=== PATIENT | female | born 1950 | race Two or more races ===

== ENCOUNTER 2024-09-24 10:04 | Outpatient (REF) | payer OTHER, SELFPAY ==
--- OUTSIDE RECORDS SUMMARY | 2024-09-24 10:43 | XMS_ITS | Encounter Summary ---
Author Organization [employer] Address [address] [facility] [address] [place] [address] Care Team Providers Care Psychology Physician Name Role Phone Carl Rivera MD Primary Care Prov ider Reason for Visit * Reason Onset Date Comments Chart Prep 09/04/2024 Encounter Details Date Type Department Care Team ([facility] st Contact Info) Description 09/04/2024 Telephone [facility] [address] [place], [place] [phone] Carl Rivera MD [address] [place], [place] [phone] Chart Prep Social History Tobacco Use Types Packs/Day Years Used Date Smoking Tobacco: Never Assessed Housing Stability Answer Date Recorded What is your housing situation today? I have carlos a espinoza 06/28/[address] you li ve. Do you have problems with any of the following? None of the above 06/28/2024 Food Insecurity Answer Date Recorded Within the past 12 months, y ou worried that your food would run out before you got money to buy more: Never True 06/28/2024 Within the past 12 months,th e food you bought just didn't last and you didn't have enough money to get more: Never True 02/2024 Transportation Answer Date Recorded In the past 12 months, has l ack of transportation kept you from medical appts, meetings, work or from getting things needed for daily living? No 06/28/2024 Utilities Answer Date Recorded In the past 12 months, has t he electric, gas, oil or water company threatened to shut off services in your home? No 06/28/2024 Internet Access Answer Date Recorded Internet Access Q1 Yes 06/28/2024 Internet Access Q2 Not on file 06/28/2024 Comments Unknown Sex and Gender Information Value Date Recorded Sex Assigned at Female 06/05/2024 10:23 AM EDT Legal Sex Female 9:49 AM EDT Gender Identity Female 06/05/2024 10:23 AM EDT Sexual Orientation Straight 06/05/2024 10 :47 AM EDT documented as of this encounter Miscellaneous Notes * Telephone Encounter - Rachel March MA - 09/04/2024 8:06 PM EST Chart Prep Labs: not applicable Images: done Vaccines due: yes Referrals: complete Screenings: eye exam Overdue care gaps: Glucose, Sbirt documented in this encounter Plan of Treatment Upcoming Encounters Date Type Department Care Team (Late st Contact Info) Description 10/04/2024 2:30 PM EST Office Visit [facility] [address] [place] [address] Carl Rivera MD [address] [place] [address] documented as of this encounter Visit Diagnoses Not on filedocumented in this encounter Care Teams Psychology Physician Relationship Specialty Start Date End Date Carl Rivera MD [address] [place] [address] PCP - General Internal Medicine 06/06/24 documented as of this encounter
--- OUTSIDE RECORDS SUMMARY | 2024-09-24 10:43 | XMS_ITS | Encounter Summary ---
Author Organization [employer] Address [address] [facility] [address] [place] [address] Care Team Providers Care Toy Department Manager Name Role Phone Carl Rivera MD Primary Care Prov ider Reason for Visit * Reason Onset Date Comments Nurse Triage 08/27/2024 Encounter Details Date Type Department Care Team ([facility] st Contact Info) Description 08/27/2024 Telephone [facility] [address] [place], [place] [phone] Carl Rivera MD [address] [place], [place] [phone] Nurse Triage Social History Tobacco Use Types Packs/Day Years [...] encounter Miscellaneous Notes * Telephone Encounter - Rosie Wan RN - 08/27/2024 11:54 AM EST Called pt. Nephew via [facility] vocational horticulture instructor [phone] Amy. Pt. Nephew states that pt. Is not sleeping at night and when she tries to get up at night she is completely unsteady. Pt. Nephew is looking for something to help pt. Sleep at night. Pt does not have Dementia but she is up all night and not listening to go back to bed and nephew is concerned for her safety. I advised that I think it would be best to do an in office visit to evaluate her mental status and mobility due to her not having any Dx of dementia. Protocol Used: Insomnia (Adult) Protocol-Based Disposition: See in Office or Video Visit within 3 Days- in office appt. Scheduled for 08/30/24 at 330pm.in [facility] Video visit offer not recorded Positive Triage Questions: * Moderate - Severe insomnia (e.g., interferes with work or school) * Requesting prescription medicine for sleep ( sleeping pill ) * All higher-acuity triage questions were negative Care Advice Discussed: * Reassurance and Education - Difficulty Sleeping * Tips for Good Sleep - What To Avoid * Telephone Encounter - Digna Pereira - 08/27/2024 9:52 AM EST Symptom: Sleeping Difficulty Outcome: Schedule an appointment to be seen within 24 hours Reason: This is the only possible outcome for this symptom The caller accepted this outcome. documented in this encounter Plan of Treatment Upcoming Encounters Date Type Department Care Team (Late st Contact Info) Description 10/04/2024 2:30 PM EST Office Visit [facility] [address] [place] [address] Carl Rivera MD [address] [place] [address] documented as of this encounter Visit Diagnoses Not on filedocumented in this encounter Care Teams Toy Department Manager Relationship Specialty Start Date End Date Carl Rivera MD [address] [place] [address] PCP - General Internal Medicine 06/06/24 documented as of this encounter
--- OUTSIDE RECORDS SUMMARY | 2024-09-24 10:43 | XMS_ITS | Clinical Summary ---
Author Organization [employer] Address [address] [facility] [address] [place] [address] Care Team Providers Care Center Customer Service Associate Name Role Phone Carl Rivera MD Primary Care Prov ider Allergies No known active allergies Medications * This document contains information received from the source organization and may not represent a complete record from that organization. alendronate (Fosamax) 70 MG tablet Take 1 tablet (70 mg) by mouth every 7 (seven) days. Take in the morning with a full glass of water, on an empty stomach, and do not take anything else by mouth or lie down for the next 30 min. 12 tablet 3 4 06/06/20 25 Active aspirin 81 MG EC tablet Take 1 tablet (81 mg) by mouth Once per day. 30 tablet 11 4 06/06/20 25 Active atorvastatin (Lipitor) 20 MG tablet Take 1 tablet (20 mg) by mouth Once per day. 30 tablet 11 4 06/06/20 25 Active Calcium Carb-Cholecalci ferol (Caltrate 600+D3) 600-20 MG-MCG tablet Take 1 tablet by mouth Once per day. 90 tablet 3 4 06/06/20 25 Active famotidine (Pepcid) 20 MG tablet Take 1 tablet (20 mg) by mouth 2 times daily. 180 tablet 3 4 06/06/20 25 Active ferrous sulfate 325 (65 Fe) MG EC tablet Take 1 tablet (325 mg) by mouth with breakfast. Do not crush, chew, or split. 90 tablet 3 4 06/06/20 25 Active latanoprost (Xalatan) 0.005 % ophthalmic solution Administer 1 drop into both eyes at bedtime. 7.5 mL 3 4 Active linaGLIPtin-met FORMIN ER (Jentadueto XR) 5-1000 MG per 24 hr tablet Take 1 tablet by mouth with breakfast. 30 tablet 11 4 06/06/20 25 Active propranolol (Inderal) 20 MG tablet Take 1 tablet (20 mg) by mouth 2 times daily. 180 tablet 3 4 06/06/20 25 Active lisinopril 40 MG tablet Take 1 tablet (40 mg) by mouth Once per day. 90 tablet 3 4 08/08/20 25 Active glucose blood test stripIndication s:Type 2 diabetes mellitus without complication, without long-term current use of insulin ([facility]) 1 each by Other route 3 times daily. 100 each 11 4 08/17/20 25 Active Alcohol Sheets (Alcoh-Wipe) sheet Test daily before all meals/snacks and once before bedtime. 1 each 4 Active Blood Glucose Monitoring Suppl (ONE TOUCH ULTRA MINI) w/Device kit Test daily before all meals/snacks and once before bedtime. 1 kit 4 Active Lancets misc 1 each 3 times daily. 1 each 11 4 08/17/20 25 Active mirtazapine (Remeron) 7.5 MG tabletIndicatio ns:Primary insomnia,Diffic ulty coping with disease Take 1 tablet (7.5 mg) by mouth at bedtime. 30 tablet 5 10/06/19 25 Active traMADol (Ultram) 50 MG tabletIndicatio ns:Left foot pain Take 1 tablet (50 mg) by mouth every 12 (twelve) hours if needed for severe pain for up to 14 days. 28 tablet 5 09/21/19 25 Active Problems Problem Noted Date Diagnosed Date Left foot pain 08/03/2024 Assessment & Plan (08/08/2024 9:24 AM EST): Chronic pain, family members refer skin color changes, will refer to vascular surgery for evaluation Assessment & Plan (08/03/2024 4:32 PM EST): Short course of tramadol prescribed (patient already tried ibuprofen and acetaminophen) Do not miss appointment with podiatry Callus of foot 08/03/2024 Diabetes due to underlying condition w oth circu latory comp 07/05/2024 Assessment & Plan (08/08/2024 9:24 AM EST): Continue jentadueto, keep low carb/no sugar diet, no reported episode below 70, Gait abnormality 07/05/2024 Assessment & Plan (07/05/2024 3:03 PM EST): Patient with advanced arthritidis, she has difficulty standing and walking, needs a walker to aid in her adls, she will need a floor cover for the bathroom to avoid slipping and falling, also she will need bath tub tubes and raised toilet seat Encounter for medical examination to establish c are 06/06/2024 Assessment & Plan (06/06/2024 1:13 PM EDT): Seen 2 months ago by a pcp No hx of hospitalization Visited er about 6 months ago due to covid Pmhx Htn/DM/hyperlipidemia/osteoporosis/anemia Pshx:cataract 2019 All:- Med: list updated Menarche 14yrs old LMP 44yrs Denied hx of Screening for colon cancer 06/06/2024 Assessment & Plan (06/06/2024 1:14 PM EDT): Will send cologuard Encounter for screening mamm ogram for malignant neoplasm of breast 06/06/2024 Assessment & Plan (06/06/2024 1:15 PM EDT): Will refer for screening breast cancer Age-related osteoporosis wit hout current pathological fracture 06/06/2024 Assessment & Plan (06/06/2024 1:20 PM EDT): Will order a dexa scan Type 2 diabetes mellitus wit hout complication, without long-term current use of insulin 06/06/2024 Assessment & Plan (07/05/2024 2:59 PM EST): Conrtolled, will discontinue metformin continue with jentadueto, keep low carb/no sugar diet, follow up in 3 months Pending eye exam New labs ordered Assessment & Plan (06/06/2024 1:24 PM EDT): Will consider simplifyning and optimizing therapy on next visit Primary hypertension 06/06/2024 Assessment & Plan (08/08/2024 9:23 AM EST): Will increase lisinopril to 40mg, continue low sodium diet and exercise as tolerated, keep bp log, follow up in 3 months Assessment & Plan (07/05/2024 3:00 PM EST): Not at target, will increase lisinopril and will discontinue amlodipine for simplicity of therapy, will reevaluate in 1 month Assessment & Plan (06/06/2024 1:23 PM EDT): Patient is on multiple medication at a low dose, will consider optomizing therapy and decreasing duplicity of treatment, told to keep a bp log for next visit Bunion of left foot 06/06/2024 Assessment & Plan (06/06/2024 1:25 PM EDT): Xray will be ordered and will be referred to podiatry Encounters * This document contains information received from the source organization and may not represent a complete record from that organization. Date Type Department Care Team Description 09/20/2024 Telephone [facility] [address] [place] [address] Carl Rivera MD Referral 09/20/2024 Telephone [facility] [address] [place] [address] Carl Rivera MD Nurse Triage 09/07/2024 Orders Only [facility] [address] [place] [address] Carl Rivera MD Left foot pain (Primary Dx) 09/07/2024 Telephone [facility] [address] [place], [place] [phone] Carl Rivera MD Med Refill 09/06/2024 11:15 AM EST Office Visit [facility] [address] [place] [address] Kvng Guerrero MD Pain of toe of left foot (Primary Dx); Primary insomnia; Difficulty coping with disease 09/06/2024 Travel 09/04/2024 Telephone [facility] [address] [place] [address] Carl Rivera MD Chart Prep 08/27/2024 Telephone [facility] [address] [place] [address] Carl Rivera MD Nurse Triage 08/17/[address] [address] Carl Rivera MD callback requested 08/17/[address] [address] Carl Rivera MD Left foot pain; Callus of foot 08/08/2024 8:30 AM EST Telemedicine [facility] [address] [place] [address] Carl Rivera MD Left foot pain (Primary Dx); Primary hypertension; Diabetes due to underlying condition w oth circulatory comp ([facility]) 08/08/[address] [address] Carl Rivera MD c/b requested 08/08/2024 Travel 08/07/2024 Telephone [facility] [address] [place] [address] Carl Rivera MD chart prep 08/06/2024 Telephone [facility] [address] [place] [address] Carl Rivera MD callback requested 08/06/2024 Travel 08/03/2024 2:00 PM EST Office Visit [facility] [address] [address] Tiffanie Gilliam MD Left foot pain (Primary Dx); Callus of foot 08/03/2024 Telephone [facility] [address] [place], [place] [phone] Carl Rivera MD Nurse Triage 07/06/2024 Travel 07/05/2024 1:00 PM EST Office Visit [facility] [address] [place], [place] [phone] Carl Rivera MD Type 2 diabetes mellitus without complication, without long-term current use of insulin ([facility]) (Primary Dx); Diabetes due to underlying condition w oth circulatory comp ([facility]); Primary hypertension; Gait abnormality 07/05/2024 Travel 06/28/2024 Patient Outreach [facility] [address] [place], [place] [phone] Carl Rivera MD Pre-visit Planning (SDOH screening negative and Tobacco screening negative. /) from Last 3 Months Social History Tobacco Use Types Packs/Day Years Used Date Smoking Tobacco: Unknown Tobacco Cessation:Counseling Given: No Depression Answer Date Recorded Patient Health Questionnaire-9 Score 6 09/06/2024 Patient Health Questionnaire-9 Score 6 09/06/2024 Last PHQ-9: Questionnaire Data Not on file 0 09/06/2024 Housing Stability Answer Date Recorded What is [...] off services in your home? No 06/28/2024 Depression Answer Date Recorded Patient Health Questionnaire-2 Score 0 09/06/2024 Internet Access Answer Date Recorded Internet Access Q1 Yes 06/28/2024 Internet Access Q2 Not on file 06/28/2024 Comments Unknown Sex and Gender Information Value Date Recorded Sex Assigned at Female 06/05/2024 10:23 AM EDT Legal Sex Female 9:49 AM EDT Gender Identity Female 06/05/2024 10:23 AM EDT Sexual Orientation Straight 06/05/2024 10 :47 AM EDT Last Filed Vital Signs Vital Sign Reading Time Taken Comments Blood Pressure 185/72 09/06/2024 11:12 AM EST Pulse 72 09/06/2024 11:12 AM EST Temperature 36.7 ??C (98 ??F) 09/06/2024 11: 12 AM EST Respiratory Rate 19 09/06/2024 11:1 2 AM EST Oxygen Saturation 100% 09/06/2024 11: 12 AM EST Inhaled Oxygen Concentration - - Weight 51.3 kg (113 lb) 09/06/2024 11:1 2 AM EST with wheel chair Height - - Body Mass Index - - Plan of Treatment Upcoming Encounters Date Type Department Care Team (Late st Contact Info) Description 10/04/2024 2:30 PM EST Office Visit [facility] [address] [place] [address] Carl Rivera MD [address] [place] [address] Health Maintenance Due Date Last Done Comments CT Colonography 1952 Colonoscopy 1952 Colorectal Cancer Screening 1952 FIT DNA/Cologuard 1952 FIT 1952 FOBT 1952 Lipid Panel 1952 Sigmoidoscopy 1952 Alcohol/Substance Use Screening 1964 Hepatitis C Screening 1970 DTaP/Tdap/Td Vaccines (1 - Tdap) 1971 Diabetes: Urine Protein Screening 1971 Pneumococcal Vaccine: 50+ Years (1 of 2 - PCV) 1971 Mammogram 1992 Zoster Vaccines (1 of 2) 2002 COVID-19 Vaccine (1 - season) 2024 Influenza Vaccine (#1) 2024 Diabetes: Hemoglobin A1C 01/02/2025 07/05/2024 SDOH Screening 06/28/2025 06/28/2024 Diabetes: Foot Exam 07/05/2025 07/05/2024, 07/05/2024, 07/05/2024, Additional history exists Depression Screening 09/06/2025 09/06/2024, 09/06/19 Tobacco Screening 09/06/2025 09/06/2024 Eye Exam 06/19/2026 06/19/2024 RSV Patients and Patients Aged 60 years or older (1 - 1-dose 75+ series) 2027 HIB Vaccines Aged Out No longer eligi ble based on patient's age to complete this topic HPV Vaccines Aged Out No longer eligi ble based on patient's age to complete this topic Hepatitis A Vaccines Aged Out No long er eligible based on patient's age to complete this topic Hepatitis B Vaccines Aged Out No long er eligible based on patient's age to complete this topic IPV Vaccines Aged Out No longer eligi ble based on patient's age to complete this topic Meningococcal Vaccine Aged Out No mike mickey eligible based on patient's age to complete this topic RSV under 20 months Aged Out No longe r eligible based on patient's age to complete this topic Rotavirus Vaccines Aged Out No longer eligible based on patient's age to complete this topic Procedures Procedure Name Priority Date/Time Associated Diagnosis Comments POCT GLYCATED HEMOGLOBIN, TOTAL Routine 07/05/2024 1:35 PM EST Type 2 diabetes mellitus without complication, without long-term current use of insulin ([facility]) POCT GLUCOSE Routine 07/05/2024 1:34 PM EST Type 2 diabetes mellitus without complication, without long-term current use of insulin (CMS/HCC) AMB REFERRAL TO OPTOMETRY Routine 06/19/2024 Type 2 diabetes mellitus without complication, without long-term current use of insulin (CMS/HCC) from Last 3 Months or Most Recently Relevant to Health Maintenance Results * POCT HGB A1C (07/05/2024 1:35 PM EST) Hemoglobin A1C 5.7 4.0 - 6.0 % QC Media Lot # [id number] Lot# Expiration Date 8,026 Blood 07/05/2024 1:35 PM EST Carl Crisostomo MD POINT OF CARE TEST ENTER/EDIT ORDERABLES Final Result * POCT Glucose (07/05/2024 1:34 PM EST) [facility] Signature Glucose Blood, POC 123 60 - 200 mg/dL QC Media Lot # [id number] Lot# Expiration Date 408,[id number] Blood Capillary blood specimen / Unknown 07/05/2024 1:34 PM EST Carl Crisostomo MD POINT OF CARE TEST ENTER/EDIT ORDERABLES Final Result * Referral to Optometry (06/19/2024) Carl Crisostomo MD OUTPATIENT REFERRA L ORDERABLES Final Result from Last 3 Months or Most Recently Relevant to Health Maintenance Insurance [facility] Care Teams Center Customer Service Associate Relationship Specialty Start Date End Date Carl Rivera MD [address] [place] [address] PCP - General Internal Medicine 06/06/24
--- OUTSIDE RECORDS SUMMARY | 2024-09-24 10:43 | XMS_ITS | Clinical Summary ---
Author Organization [address] [facility] Address [address] [place] [address] Phone Care Team Providers Care Registered Respiratory Technician Name Role Phone Carl Rivera Primary Care Provide r Medications Medication Sig Dispensed Refills Start Date End Date Status ammonium lactate (AmLactin) 12 % lotion Apply topically if needed for dry skin. 400 g 2 09/20/2024 09/20/2025 Active Encounters Date Type Department Care Team Description 09/20/2024 1:00 PM EST Office Visit Orthopedic Surgery [place] [phone] [phone] Ron Mahmood DPM Controlled type 2 diabetes with neuropathy (CMS/HCC) (Primary Dx); Pain in toes of both feet; Xerosis cutis; Callus; Dermatophytosis, nail from Last 3 Months Social History Tobacco Use Types Packs/Day Years Used Date Smoking Tobacco: Never Assessed Sex and Gender Information Value Date Recorded Sex Assigned at Not on file Gender Identity Not on file Sexual Orientation Not on file Plan of Treatment Upcoming Encounters Date Type Department Care Team (Late st Contact Info) Description 11/22/2024 1:15 PM EDT Office Visit Orthopedic [facility] [address] [phone] Ron Mahmood DPM [address] [address] Health Maintenance Due Date Last Done Comments Breast Cancer Screening 1952 Diabetes: Annual GFR (Glomer ular Filtration Rate) 1952 Pneumococcal Vaccine: 65+ Ye ars (1 of 2 - PCV) 1958 Diabetes: Annual Foot Exam 1962 Diabetes: Annual Retina Eye Exam 1962 DTaP,Tdap,and Td Vaccines (1 - Tdap) 1971 Zoster Vaccines (1 of 2) 2002 RSV Immunization Patients 60 + Years Old (1 - Risk 60-74 years 1-dose series) 2012 COVID-19 Vaccine (1 - 2023-2 5 season) 2024 Influenza Vaccine (#1) 2024 Cholesterol Screening (Lipid Panel) 06/17/2024 Colorectal Cancer Screening: Colonoscopy 06/17/2024 Falls Risk Assessment 06/17/2024 Hepatitis C Screening 06/17/2024 Osteoporosis Screening (Bone Density Screening) 06/17/2024 Social Influencers of Health Screening 06/17/2024 Diabetes: Annual Urine Albumin-Creatinine Ratio (uACR) 09/20/2024 Hypertension/CHF/CAD Annual BMP Blood Test 09/20/2024 Diabetes: Blood Sugar Contro l Test (HGBA1C) 01/02/2025 07/05/2024 Depression Screening 09/06/2025 09/06/2024 HIB Vaccines Aged Out No longer eligi [...] on patient's age to complete this topic MMR Vaccines Aged Out No longer eligi ble based on patient's age to complete this topic Meningococcal ACWY Vaccine Aged Out N o longer eligible based on patient's age to complete this topic RSV Immunization Patients Un lexus 20 months Aged Out No longer eligible b ased on patient's age to complete this topic Varicella Vaccines Aged Out No longer eligible based on patient's age to complete this topic Care Teams Registered Respiratory Technician Relationship Specialty Start Date End Date Carl Rivera [address] [place], [place] PCP - General 06/08/24
--- OUTSIDE RECORDS SUMMARY | 2024-09-24 10:43 | XMS_ITS | Encounter Summary ---
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 * Orthopedic (Routine) - Authorized Specialty Diagnoses / Procedures Referred By Yunior newberry Referred To Contact Podiatry / Orthopaedic Surgery Diagnoses Bunion of left foot Procedures AMB REFERRAL TO PODIATRY Carl Rivera [address] [place], [place] Ron Mahmood DPM [address] [address] Referral ID Status Reason Start Date Expiration Date Visits Requested Visits Authorized [id number] Authorized Consult and Treat 06/23/2024 06/23/2025 1 1 Encounter Details Date Type Department Care Team (Late st Contact Info) Description 09/20/2024 1:00 PM EST Office Visit Orthopedic Surgery - [place] [address] [phone] Ron Mahmood DPM [address] [address] Controlled type 2 diabetes with neuropathy (CMS/HCC) (Primary Dx); Pain in toes of both feet; Xerosis cutis; Callus; Dermatophytosis, nail Social History Tobacco Use Types Packs/Day Years Used Date Smoking Tobacco: Never Assessed Sex and Gender Information Value Date Recorded Sex Assigned at Not on file Gender Identity Not on file Sexual Orientation Not on file documented as of this encounter Ordered Prescriptions Prescription Sig Dispensed Refills Start Date End Da te ammonium lactate (AmLactin) 12 % lotion Apply topically if needed for dry skin. 400 g 2 09/20/2024 09/20/2025 documented in this encounter Progress Notes * Ron Mahmood DPM - 09/20/2024 1:00 PM EST Referring MD: Connor Rivera* Last PCP visit: 09/06/2024 IDENTIFIER: @TITLE@ Leopoldo Maldonado is a 74 y.o. year old female who presents for consultation. CC: Bilateral foot pain HPI: Patient presents to office today for initial diabetic foot evaluation as recommended by their primary care physician. Patient states that they have been diabetic for the past few years and has tingling numbness of feet bilaterally Denies any history of ulceration, or infection. Patient would like to inquire about their pedal hygiene, as their toenails have become elongated and painful. Patient is not using antifungals at this time. Patient is wearing good supportive shoes at this time. She is concerned with a callus overlying the IP joint of the left fifth digit Patient with minimal other pedal complaints at this time. Patient's FBS this AM was 120 Recent A1C is %. 6.3 ROS: GENERAL: Pt denies nausea, fever, vomiting, chills, or shortness of breath. Pt in NAD. CARDIOLOGY: pt denies chest pain, palpitations LUNGS: pt denies shortness of breath MUSCULOSKELETAL: See HPI, otherwise no joint pain or swelling, back pain, or muscle pain. SKIN: see HPI, otherwise no lesions, rash or itching NEURO: No persistent headache, weakness or numbness The remainder of the review of systems is noncontributory PAST MEDICAL HISTORY: There is no problem list on file for this patient. SOCIAL HISTORY: Social History Tobacco Use Smoking status: Not on file Smokeless tobacco: Not on file Substance Use Topics Alcohol use: Not on file ACTIVE MEDICATIONS: No outpatient medications have been marked as taking for the 09/20/24 encounter (Office Visit) with Ron Mahmood DPM. ALLERGIES: @ALL@ PHYSICAL EXAM: There were no vitals taken for this visit. PODIATRIC EXAMINATION: GENERAL: Patient appears well nourished, with NAD. VASCULAR: Dorsalis pedis pulses are 1/4 bilaterally and Posterior tibial pulses are 0/4 bilaterally. Capillary filling time within normal limits the digits. No pallor on elevation or rubor on dependency. Positive hair growth. No varicosities. Denies rest pain or claudication pain. NEUROLOGICAL: Sharp/dull sensation intact, protective sensation diminished on Arnold. Peripheral neuropathies at the feet bilaterally ORTHOPEDIC: Good muscle strength 5/5 of all flexors and extensors. Dorsi flexion of ankle ,10 degrees, plantar flexion WNL. No muscle atrophy. Arthritic changes to the feet bilaterally. Difficulty ingoing through with dorsi flexion of the left foot. Passive range of motion adequate. Contracture ofdigits 2 through 5 which are rigid. Palpation of the distal orlando of the digits DERMATOLOGICAL:.Enlarged callus over the IP joint of the left fifth digit masses or skin lesions noted. Normal skin temperature, normal skin turgor. Nails are elongated dystrophic discolored x 10 with subungual debris BIOMECHANICS: STJ ROM wnl, MTJ ROM wnl, 1st MPJ ROM wnl. IMPRESSION: 1. Controlled type 2 diabetes with neuropathy (CMS/HCC) 2. Pain in toes of both feet 3. Xerosis cutis 4. Callus 5. Dermatophytosis, nail PLAN: Pt was seen and examined, history reviewed. Patient educated on the importance of good pedal hygiene and tight blood glucose control. Patient encouraged to maintain a healthy lifestyle with a well-balanced diet. Patient should never go barefoot and wear supportive shoe gear. Patient should aim for A1c less than 7% every month. Continue with regular appointments with PMD or fisher trawl line for tight medical management Patient found to have contracted and hammered digits of bilateral forefoot. Due to patients currentage and activity level, will continue with conservative management of these deformities. There are devices that will help reduce chance of irritation, pressure points, blisters, and/or infection. Hyperkeratotic lesions were debrided without incident. Patient reported significant relief. Patientwould benefit from padding to prevent future injury or ulceration. Offloading pads offered to patient to place in patient shoe gear. Will discuss Dr Sandoval's products or custom orthotics at next appointment if improvement noted Nail debridement performed to nails 1-5 bilateral as nails were described to be causing pain and difficulty for walking while in shoegear at their previous length. They were debrided in thickness andlength, with no incident. 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 Patient expressed immediate relief. Patient is to RTC in 9 weeks Patient with diffuse Xerosis to bilateral feet. Patient will benefit from additional moisture to feet to prevent fissures and crack which could lead to pain or even infection. Patient was given a prescription for ammonium lactate 12% to be applied daily. Patient encouraged to apply lotion to lightly moistened skin to allow for better absorption. Ron Mahmood DPM cc: Connor Rivera* documented in this encounter Plan of Treatment Upcoming Encounters Date Type Department Care Team (Late st Contact Info) Description 11/22/2024 1:15 PM EDT Office Visit Orthopedic Surgery - [place] [address] [phone] Ron Mahmood DPM [address] [address] documented as of this encounter Visit Diagnoses Diagnosis Controlled type 2 diabetes with neuropathy (CMS/HCC)- Primary Type II or unspecified type diabetes mellitus with neurological manifestations, not stated as uncontrolled Pain in toes of both feet Xerosis cutis Other specified disease of sebaceous glands Callus Corns and callosities Dermatophytosis, nail Dermatophytosis of nail documented in this encounter Care Teams Processing Tech Relationship Specialty Start Date End Date Carl Rivera [address] [place] [address] PCP - General 06/08/24 documented as of this encounter
--- OUTSIDE RECORDS SUMMARY | 2024-09-24 10:43 | XMS_ITS | Encounter Summary ---
Author Organization [employer] Address [address] [facility] 7t [place] [address] Care Team Providers Care Health And Wellness Coordinator Name Role Phone Carl Rivera MD Primary Care Prov ider Reason for Visit * Reason Onset Date Comments Med Refill 09/07/2024 Encounter Details Date Type Department Care Team (Late st Contact Info) Description 09/07/2024 Telephone [facility] [address] [place] [address] Carl Rivera MD [address] [place], [place] [phone] Med Refill Social History Tobacco Use Types Packs/Day Years Used Date Smoking Tobacco: Unknown Depression Answer Date Recorded Patient Health Questionnaire-9 Score 6 09/06/2024 Patient Health Questionnaire-9 Score 6 09/06/2024 Last PHQ-9: Questionnaire Data Not on file 0 09/06/2024 Housing Stability Answer Date Recorded What is your housing situation today? I have carlos ajailyn espinoza 06/28/[address] you [...] encounter Miscellaneous Notes * Telephone Encounter - Rudy Cohen - 09/07/2024 10:45 AM EST TC from [place] checking to see if pcp can prescribe Tramadol 50 mg ( limited supply ) until pt sees pc support specialist 09/20 documented in this encounter Plan of Treatment Upcoming Encounters Date Type Department Care Team (Late st Contact Info) Description 10/04/2024 2:30 PM EST Office Visit [facility] MED & PEDS [address] [place] [address] Carl Rivera MD [address] [place] [address] documented as of this encounter Visit Diagnoses Not on filedocumented in this encounter Additional Health Concerns Assessment Noted Time PHQ-9 Depression Total Score: 6 09/06/19 25 12:03 PM EST documented as of this encounter Care Teams Health And Wellness Coordinator Relationship Specialty Start Date End Date Carl Rivera MD [address] [place] [address] PCP - General Internal Medicine 06/06/24 documented as of this encounter
--- OUTSIDE RECORDS SUMMARY | 2024-09-24 10:43 | XMS_ITS | Encounter Summary ---
Author Organization [employer] Address [address] [facility] [address] [place] [address] Care Team Providers Care Requirements Analyst Name Role Phone Carl Rivera MD Primary Care Prov ider Reason for Visit * Reason Onset Date Comments Nurse Triage 08/03/2024 Encounter Details Date Type Department Care Team ([facility] st Contact Info) Description 08/03/2024 Telephone [facility] [address] [place] [address] Carl Rivera MD [address] [place], [place] [phone] Nurse Triage Social History Tobacco Use Types [...] Telephone Encounter - Rosie Wan RN - 08/03/2024 9:29 AM EST Called pt via [facility] route salesman [phone] [place] [place] , pt. Nephew answered phone. Pt. Feet are hurtingand her toes are turning black according to nephew and pt. Cries everyday according to pt. Nephew. This has been going on x 2 weeks. No drainage from toes. Pt. Is Diabetic and does have underlying circulatory issues and complications noted in chart. Pt. Nephew states that he took pt. [facility] x 1 week ago and they just took some tests and then sent pt. Home. I see a note from [facility] from 06/17/24 but, no recent ED note. I stated that I am very concerned and that he should take pt. Back to ED. Pt.Nephew declines stating that they did nothing. I advised pt. Nephew to bring pt. To walk in to be assessed right away. Pt. nephew agrees with plan. Protocol Used: Toe Pain (Adult) Protocol-Based Disposition: Go to ED/[facility] Now (or to Office with PCP Approval) Video visit offer not recorded Positive Triage Questions: * Purple or black skin on toe (Exception: Person remembers bruising the toe from an injury.) * Severe pain (e.g., excruciating, unable to do any normal activities) and not improved after 2 hours of pain medicine * All higher-acuity triage questions were negative * Telephone Encounter - Kunal March - 08/03/2024 9:14 AM EST Symptom: Leg Pain - Not From Injury Outcome: Talk to a nurse or provider within 15 minutes Reason: Can't walk (unless normally can't walk) Italian Speaker (Accepted Healthcare Facility Administrator) documented in this encounter Plan of Treatment Upcoming Encounters Date Type Department Care Team (Late st Contact Info) Description 10/04/2024 2:30 PM EST Office Visit [facility] MED & PEDS [address] [place] [address] Carl Rivera MD [address] [place] [address] documented as of this encounter Visit Diagnoses Not on filedocumented in this encounter Care Teams Requirements Analyst Relationship Specialty Start Date End Date Carl Rivera MD [address] [place] [address] PCP - General Internal Medicine 06/06/24 documented as of this encounter
--- OUTSIDE RECORDS SUMMARY | 2024-09-24 10:43 | XMS_ITS | Encounter Summary ---
Author Organization [employer] Address [address] [facility] 7t [place] [address] Care Team Providers Care Lead Data Entry Operator Name Role Phone Carl Rivera MD Primary Care Prov ider Reason for Visit * Reason Onset Date Comments Nurse Triage 09/20/2024 Encounter Details Date Type Department Care Team ([facility] st Contact Info) Description 09/20/2024 Telephone [facility] MED [facility] PEDS [address] [place], [place] [phone] Carl Rivera MD [address] [place], [place] [phone] Nurse Triage Social History Tobacco Use Types [...] encounter Miscellaneous Notes * Telephone Encounter - Celena José LPN - 09/20/2024 2:27 PM EST Triage call returned with S #[id number] Bruce Patient with noted increased confusion over the last several weeks. Patient living with Nephew and his Hillary. Hillary does not feel that PRN Tramadol or sleep aid is affecting mentation and that patient just at times appears confused. Had difficulty lifting legs into car as if she didn't understand given as example. No evidence of illness at present. Has no fever no urinary complaints. Is sleeping well at night. Appetite at baseline. Disposition reviewed and patient family in agreement with plan. [facility] Instead home valuation arranged for today Address and phone verified at time of call. Patient family made aware of outstanding labs on file and will obtain at time of [facility] appt 09/24/24 Protocol Used: Confusion - Delirium (Adult) Protocol-Based Disposition: See in Office or Video Visit Today Positive Triage Question: * Patient wants to be seen (or caregiver requests) * All higher-acuity triage questions were negative * Telephone Encounter - Digna Pereira - 09/20/2024 2:01 PM EST Symptom: Confusion Outcome: Schedule a same-day appointment or talk to a nurse or provider today Reason: Caller denied all higher acuity questions The caller accepted this outcome. documented in this encounter Plan of Treatment Upcoming Encounters Date Type Department Care Team (Late st Contact Info) Description 10/04/2024 2:30 PM EST Office Visit [facility] CH[facility] MED & PEDS [address] [place] [address] Carl Rivera MD [address] [place] [address] documented as of this encounter Visit Diagnoses Not on filedocumented in this encounter Additional Health Concerns Assessment Noted Time PHQ-9 Depression Total Score: 6 09/06/19 25 12:03 PM EST documented as of this encounter Care Teams Lead Data Entry Operator Relationship Specialty Start Date End Date Carl Rivera MD [address] [place] [address] PCP - General Internal Medicine 06/06/24 documented as of this encounter
--- OUTSIDE RECORDS SUMMARY | 2024-09-24 10:43 | XMS_ITS | Encounter Summary ---
Author Organization [employer] Address [address] [facility] [address] [place] [address] Care Team Providers Care Water Quality Specialist Name Role Phone Carl Rivera MD Primary Care Prov ider Encounter Details Date Type Department Care Team (Late st Contact Info) Description 09/07/2024 Orders Only [facility] CH[facility] MED & PEDS [address] [place], [place] [phone] Carl Rivera MD [address] [place], [place] [phone] Left foot pain (Primary Dx) Social History Tobacco Use Types Packs/Day Years [...] AM EDT documented as of this encounter Plan of Treatment Upcoming Encounters Date Type Department Care Team (Late st Contact Info) Description 10/04/2024 2:30 PM EST Office Visit [facility] MED & PEDS [address] [place] [address] Carl Rivera MD [address] [place] [address] documented as of this encounter Visit Diagnoses Diagnosis Left foot pain- Primary Pain in soft tissues of limb documented in this encounter Additional Health Concerns Assessment Noted Time PHQ-9 Depression Total Score: 6 09/06/19 25 12:03 PM EST documented as of this encounter Care Teams Water Quality Specialist Relationship Specialty Start Date End Date Carl Rivera MD [address] [place] [address] PCP - General Internal Medicine 06/06/24 documented as of this encounter
--- OUTSIDE RECORDS SUMMARY | 2024-09-24 10:43 | XMS_ITS | Encounter Summary ---
Author Organization [employer] Address [address] [facility] [address]t [place] [address] Care Team Providers Care Sales Promoter Name Role Phone Carl Rivera MD Primary Care Prov ider Reason for Visit * Reason Onset Date Comments Referral 09/20/2024 Encounter Details Date Type Department Care Team ([facility] st Contact Info) Description 09/20/2024 Telephone [facility] CHC MED & PEDS [address] [place], [place] [phone] Carl Rivera MD [address] [place], [place] [phone] Referral Social History Tobacco Use Types Packs/Day Years [...] encounter Miscellaneous Notes * Telephone Encounter - Tata Zuleta RN - 09/21/2024 10:37 AM EST TC to patient. Male answered the phone and stated I had the wrong number and hung up. * Telephone Encounter - Digna Pereira - 09/20/2024 2:02 PM EST TC from Hillary stacy calling to inform pt was seen by her podiatry specialist and was advised to request a referral for orthopedics. For further question please contact Hillary or Adalberto . documented in this encounter Plan of Treatment Upcoming Encounters Date Type Department Care Team (Late st Contact Info) Description 10/04/2024 2:30 PM EST Office Visit [facility] MED & PEDS [address] [place] [address] Carl Rivera MD [address] [place] [address] documented as of this encounter Visit Diagnoses Not on filedocumented in this encounter Additional Health Concerns Assessment Noted Time PHQ-9 Depression Total Score: 6 09/06/19 25 12:03 PM EST documented as of this encounter Care Teams Sales Promoter Relationship Specialty Start Date End Date Carl Rivera MD [address] [place] [address] PCP - General Internal Medicine 06/06/24 documented as of this encounter
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
--- OUTSIDE RECORDS SUMMARY | 2024-09-24 10:43 | XMS_ITS | Encounter Summary ---
Author Organization [employer] Address [address] [place] [address] Care Team Providers Care Risk And Compliance Analytics Director Name Role Phone Carl Rivera MD Primary Care Prov ider Encounter Details Date Type Department Care Team (Latest Contact Info) Description 09/06/2024 Travel Social History Tobacco Use Types Packs/Day Years [...] Description 10/04/2024 2:30 PM EST Office Visit [facility] [address] [place] [address] Carl Rivera MD [address] [place] [address] documented as of this encounter Visit Diagnoses Not on filedocumented in this encounter Additional Health Concerns Assessment Noted Time PHQ-9 Depression Total Score: 6 09/06/19 25 12:03 PM EST documented as of this encounter Care Teams Risk And Compliance Analytics Director Relationship Specialty Start Date End Date Carl Rivera MD [address] [place] [address] PCP - General Internal Medicine 06/06/24 documented as of this encounter
[2024-09-24 11:34] LABS: MANUAL DIFF FLAG NO
[2024-09-24 11:40] LABS: Basophils Percent Auto 0.6 % (0-2); Eosinophils Absolute Auto 0.1 X10*3/uL (0.0-0.4); Eosinophils Percent Auto 1.7 % (0-4); Hematocrit 34.4 % (37.0-47.0); Hemoglobin 11.9 g/dl (12.0-16.0); Imm Gran Abs Auto 0.02 X10*3/uL (0.00-0.03); Imm Gran Pct Auto 0.4 % (0.0-0.4); Lymphocytes Absolute Auto 1.8 X10*3/uL (1.2-4.9); Lymphocytes Percent Auto 33.5 % (20-40); Mean Corpuscular HGB Conc 34.6 g/dl (31.0-35.0); Mean Corpuscular Hemoglobin 33.8 pg (27.0-33.0); Mean Corpuscular Volume 97.7 fL (80.0-98.0); Mean Platelet Volume 10.1 fL (9.4-12.3); Monocytes Absolute Auto 0.3 X10*3/uL (0.1-1.2); Monocytes Percent Auto 5.6 % (2-11); Neutrophils Absolute Auto 3.2 x10*3/uL (2.0-8.3); Neutrophils Percent Auto 58.2 % (45-73); Platelet Count 207 X10*3/uL (160-400); Red Blood Count 3.52 X10*6/uL (4.20-5.50); Red Cell Distribution Width 12.6 % (11.0-16.0); White Blood Count 5.4 X10*3/uL (4.8-10.8)
[2024-09-24 12:17] LABS: Alanine Aminotransferase 22 U/L (0-31); Albumin Level 3.9 g/dL (3.5-5.0); Alkaline Phosphatase 81 U/L (39-117); Anion Gap 12 (12-20); Aspartate Amino Transferase 21 U/L (5-31); Bilirubin Total 0.5 mg/dL (0.0-1.0); Blood Urea Nitrogen 13 mg/dL (9-16); Carbon Dioxide 25 mmol/L (22-29); Chloride 108 mmol/L (96-108); Cholesterol 102 mg/dL (<200); Estimated Glomerular Filt Rate > 60; Glucose Random 146 mg/dL (60-115); HDL Cholesterol 34 mg/dL (>40); LDL Cholesterol Calculated 54 mg/dL (<100); Potassium 4.1 mmol/L (3.3-5.1); Sodium 141 mmol/L (135-145); Total Protein 7.2 g/dL (6.5-8.0); Triglycerides 72 mg/dL (<150)
[2024-09-24 12:38] LABS: TSH reflex Free T4 0.03 uIU/mL (0.32-4.0)
[2024-09-24 13:37] LABS: Free T4 (Free Thyroxine) 1.24 ng/dL (0.71-1.85)
[2024-09-25 08:10] LABS: ~HepC Num1 0.06 S/CO (0.00-0.79); ~Hepatitis C Antibody Nonreactive (Nonreactive)
== END 2024-09-24 10:05 | disposition home or self-care (01) ==
LOC: HO.HHCL 10:04
PROVIDERS: Visit Provider Internal Medicine
DX: E11.9 Type 2 diabetes mellitus without complications (principal)
CPT/HCPCS: 36415; 80053; 80061; 84439; 84443; 85025; 86803

== ENCOUNTER 2025-04-07 12:13 | Inpatient (IN) | payer OTHER, SELFPAY ==
--- NOTE | ~2025-04-07 | XR_ITS ---
CLINICAL HISTORY: sob 1 view chest x-ray Comparison: CR - XR CHEST 1V - 04/07/25 12:45 EDT Findings: There are airspace opacities within the bilateral lower lungs. There are probable small bilateral pleural effusions. Heart size is normal. No acute fracture. IMPRESSION: 1. Airspace opacities within the bilateral lower lungs may be secondary to pneumonia and/or edema. 2. Probable small bilateral pleural effusions. This document has been electronically signed by: Tata Lea MD on 04/09/2025 18:02:47
--- NOTE | ~2025-04-07 | XR_ITS ---
EXAMINATION: XR PELVIS CLINICAL INFORMATION: fall, pain COMPARISON: None available. TECHNIQUE: AP view of the pelvis. FINDINGS: Subchondral cyst formation and sclerosis and joint space narrowing with marginal osteophyte formation and low volume of the right coxofemoral joint. No acute cortical disruption or malalignment. Left hip demonstrate minimal subchondral cyst formation along the articular surface of the left acetabulum. Degenerative changes in the sacroiliac joints and symphysis pubis. There is a metallic probe in the midline of the lower pelvis probably rectum. XR/XR pelvis 1-2V IMPRESSION: Severe osteoarthritis/osteoarthrosis, right hip. Mild osteoarthrosis/osteoarthritis, left hip. Electronically signed by: Nasim Garcia MD 04/08/2025 03:03 PM EDT
--- NOTE | ~2025-04-07 | XR_ITS ---
CLINICAL HISTORY: fall, ams, chest trauma Single view of the chest. COMPARISON: None provided. FINDINGS: Borderline cardiomegaly. Atherosclerotic thoracic aorta. No consolidation. No pleural effusion or pneumothorax. No acute fracture identified. Marginal osteophytes present throughout the mid to lower thoracic spine. IMPRESSION: 1. No acute findings. No pneumothorax. This document has been electronically signed by: Sebas Asher MD on 04/07/2025 14:49:38
--- NOTE | ~2025-04-07 | CT_ITS ---
CLINICAL HISTORY: fall neck pain CT cervical spine without contrast. COMPARISON: None provided. FINDINGS: Straightening of the normal cervical lordosis. Mild rightward curvature of the mid cervical spine. Vertebral body heights are maintained. Apical pleural thickening present bilaterally with calcified pleural plaques of the lung apices. Thyromegaly. Dystrophic calcifications present within the thyroid. Calcified plaque present at the carotid bulbs bilaterally. Visualized intracranial structures are unremarkable. C2-C3: Uncovertebral joint hypertrophy on the left. C3-C4: Posterior disc osteophyte complex. C4-C5: Anterior marginal osteophytes. Posterior disc osteophyte complex with ossification of the posterior longitudinal ligament. Uncovertebral joint hypertrophy. [id number]-[id number] bilateral neural foraminal narrowing. C5-C6: Anterior marginal osteophytes. Ossification of the posterior longitudinal ligament. Uncovertebral joint hypertrophy. Moderate left neural foraminal narrowing. C6-C7: Anterior marginal osteophytes. Uncovertebral joint hypertrophy. Mild bilateral neural foraminal narrowing. IMPRESSION: 1. No evidence of acute injury to the cervical spine. 2. Straightening of the normal cervical lordosis with mild rightward curvature of the midcervical spine. 3. Moderate multilevel cervical spondylosis. This document has been electronically signed by: Sebas Asher MD on 04/07/2025 14:50:15
--- NOTE | ~2025-04-07 | XR_ITS ---
EXAMINATION: XR FEMUR, LEFT CLINICAL INFORMATION: fall, pain COMPARISON: None available. TECHNIQUE: AP and lateral views of the left femur were obtained. FINDINGS: Mild sclerosis along the articular surface of the left acetabulum. Asymmetric joint space narrowing the inferior left coxofemoral joint. There is bowing of the diaphysis, left femur. No acute cortical disruption. No periosteal bone reaction. XR/XR femur LT 2V IMPRESSION: No acute fracture. Mild osteoarthritis/osteoarthrosis, left hip. Electronically signed by: Nasim Garcia MD 04/08/2025 03:04 PM EDT
--- NOTE | ~2025-04-07 | CT_ITS ---
CLINICAL HISTORY: fall head strike CT head without contrast. COMPARISON: None provided. FINDINGS: The visualized paranasal sinuses are clear. The mastoid air cells are clear. No calvarial fracture. No abnormality identified within the visualized orbital soft tissues. Atherosclerotic intracranial vasculature. No evidence for mass or mass effect. No intracranial hemorrhage or abnormal extra-axial fluid collection. 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 The ventricles are proportional with the degree of mild global cerebral volume loss without evidence of hydrocephalus. Basilar cisterns are patent. Posterior fossa appears unremarkable. IMPRESSION: 1. No acute intracranial findings. This document has been electronically signed by: Sebas Asher MD on 04/07/2025 14:55:13
--- NOTE | 2025-04-07 12:21 | ED.GENADULT ---
HPI - General Adult General Chief complaint: Altered Mental Status Stated complaint: FALL CONFUSION Source: patient and EMS Mode of arrival: EMS Limitations: altered mental status History of Present Illness ED Provider: RON Soto HPI narrative: This is a 74-year-old female past medical history significant for dementia presenting to the emergency department status post unwitnessed fall. Family found her in the bathroom this morning. She had a skin tear to the left forearm. Unclear if head strike or loss of consciousness. Patient not on blood thinners. Patient is pleasantly confused and unable to provide me history review of systems. No distracting injuries upon initial assessment Related Data Allergies Allergy/AdvReac Type Severity Reaction Status Date / Time Unable to Assess Allergy Verified 04/07/25 12:33 Review of Systems Review of Systems: Yes Unobtainable due to mental status PMFSH Past Medical History Attestation statement: The following information was validated with the patient. Source: old records reviewed and nursing notes reviewed Social History Social History Unable to assess alcohol history related to: Unknown Advance Directives: No Advance Directives Information Provided: Yes Physical Exam ED Exam Exam: Appearance: Alert.? Oriented X3.? No acute distress.? Head: Normocephalic, atraumatic, no step-offs or deformities Eyes: Pupils equal, round and reactive to light.? ENT: Pharynx normal.? Neck: Normal inspection.? Neck supple.? CVS: Normal heart rate and rhythm.? Pulses normal.? Respiratory: No respiratory distress.? Breath sounds normal.? Abdomen: Soft and nontender.? Skin: Skin warm and dry.? Normal skin color.? Normal skin turgor.? Extremities: No lower extremity edema.? No calf ttp. 5/5 strength to bilateral upper and lower extremities Back: No midline tenderness, no C-spine tenderness, full range of motion, no CVA tenderness bilaterally Neuro: Oriented X 3.? No motor deficit.? No sensory deficit. CN 2-12 intact Vital Signs: Vital Signs - 24 hr 04/07/25 12:31 Temperature 98.0 F Pulse Rate 73 Respiratory Rate 16 Blood Pressure 138/52 L Pulse Oximetry 98 Oxygen Delivery Method Room Air BMI result Body Mass Index 18.0 vss Course Reevaluation(s) Reevaluation #1: CBC with a normocytic anemia. Chemistry with mild elevation in BUN and creatinine will gently hydrate patient. Patient is noted to have [place] CPK [place] 4559 consistent with acute rhabdomyolysis. Troponin also elevated 194.1 patient appears comfortable with no reported chest pain she is a poor historian will trend troponin. I suspect this is likely secondary to type 2 injury I do not suspect acute ACS however will rule out. EKG is unremarkable and does not show acute STEMI. Chest x-ray, head and neck CT pending. I did speak to the family who is now at the bedside they tell me patient is currently on antibiotics for UTI and has been on them for a few days however they do not seem to be helping patient has been very weak. Unclear exactly how long patient was down for. She has been progressively getting more and more weak. She lives at home with them in the night they take care of her. They are able to tell when the patient is uncomfortable or in pain. At this time infection suspected I will order antibiotics, fluids, blood cultures and a lactic Time: 14:30 Reevaluation #2: CT of the C-spine negative. Chest x-ray no acute findings, no pneumothorax. Head CT pending. Blood cultures, lactic acid pending at this time. Second troponin also pending Time: 15:25 Reevaluation #3: Troponin did increase however not meeting delta criteria. Lactic acid negative. Urine with leukocytosis however no noted bacteria but this could be secondary to patient being on antibiotics. She is now reporting bilateral lower extremity pain. No point tenderness. This could be secondary to rhabdo. Time: 15:41 Medications Administered Discontinued Medications Generic Name Dose Route Start Last Admin Trade Name Irene PRN Reason Stop Dose Admin Ceftriaxone Sodium 1 gm 04/07/25 14:28 04/07/25 14:54 Ceftriaxone Sodium 1 Gm Vial IVPUSH 04/07/25 14:29 1 gm ONCE ONE Administration Sodium Chloride 1,257 mls @ 1,257 mls/hr 04/07/25 14:28 04/07/25 14:55 Ns 30 ml/kg infuse over 1 hr (1257 ml) 04/07/25 15:27 1,257 mls/hr IV Administration .Q1H STA Medical Decision Making Medical Decision Making [facility] Narrative: 1222 74-year-old female presents status post fall unwitnessed. Patient history of dementia unable to provide me with a history. Physical exam with a skin tear to the left lateral aspect of forearm approximately 5 cm. Regular rate and rhythm. Lungs clear. Unable to perform an accurate neurological assessment as patient is not following commands this is likely her baseline. History and physical exam concerning for weakness/debility will rule out rhabdo, electrolyte abnormalities, urine infection. Will rule out cardiac abnormalities. Plan labs, imaging, EKG Differential Diagnosis Differential Diagnoses: The differential diagnosis associated with the presentation includes (History and physical exam concerning for weakness/debility will rule out rhabdo, electrolyte abnormalities, urine infection. Will rule out cardiac abnormalities.) Admission/Observation Consideration of admission/observation: Escalation of care including admission/observation considered Lab Data MDM Lab Attestation statement: I reviewed the patient's lab results. 04/07/25 12:56 04/07/25 12:56 Labs: Lab Results 04/07/25 04/07/25 Range/Units 12:56 14:54 WBC 9.1 (4.8-10.8) X10*3/uL RBC 3.23 L (4.20-5.50) X10*6/uL Hgb 11.2 L (12.0-16.0) g/dl Hct 31.4 L (37.0-47.0) % MCV 97.2 (80.0-98.0) fL MCH 34.7 H (27.0-33.0) pg MCHC 35.7 H (31.0-35.0) g/dl RDW 12.6 (11.0-16.0) % Plt Count 214 (160-400) X10*3/uL MPV 10.0 (9.4-12.3) fL Immature Gran % (Auto) 0.3 (0.0-0.4) % Neut % (Auto) 81.0 H (45-73) % Lymph % (Auto) 11.6 L (20-40) % Kendall % (Auto) 6.9 (2-11) % Eos % (Auto) 0.0 (0-4) % Baso % (Auto) 0.2 (0-2) % Lymph # (Auto) 1.1 L (1.2-4.9) X10*3/uL Kendall # (Auto) 0.6 (0.1-1.2) X10*3/uL Eos # (Auto) 0.0 (0.0-0.4) X10*3/uL Baso # (Auto) 0.0 (0.0-0.2) X10*3/uL Abs Immat Gran (auto) 0.03 (0.00-0.03) X10*3/uL Absolute Neuts (auto) 7.3 (2.0-8.3) x10*3/uL Absolute Nucleated RBC 0.000 (0.0-0.012) X10*3/uL Nucleated RBC % (auto) 0.0 (0.0-0.2) /100WBC PT 11.6 (10.9-12.4) SEC INR 1.0 (0.9-1.1) Sodium 138 (135-145) mmol/L Potassium 4.4 (3.3-5.1) mmol/L Chloride 104 (96-108) mmol/L Carbon Dioxide 21 L (22-29) mmol/L Anion Gap 17 (12-20) BUN 25 H (9-16) mg/dL Creatinine 0.65 (0.5-1.4) mg/dL Estim Creat Clear Calc 51.7 Estimated GFR > 60 Random Glucose 162 H (60-115) mg/dL Lactic Acid 1.9 (0.5-2.0) mmol/L Calcium 9.7 D (8.4-10.2) mg/dL Magnesium 1.6 (1.6-2.6) mg/dL Total Bilirubin 0.8 (0.0-1.0) mg/dL AST 66 H (5-31) U/L ALT 30 (0-31) U/L Alkaline Phosphatase 81 (39-117) U/L Total Creatine Kinase 4559 H (26-140) U/L Troponin I High Sens 194.1 H* 207.4 H* (<3.5-17.0) ng/L Total Protein 7.3 (6.5-8.0) g/dL Albumin 4.2 (3.5-5.0) g/dL Urine Color Yellow Urine Appearance Cloudy Urine pH 5.5 (5.0-9.0) Ur Specific Ridge 1.015 (1.005-1.025) Urine Protein Trace (Neg-Trace) mg/dL Urine Glucose (UA) Negative (Negative) mg/dL Urine Ketones 40 (Negative) mg/dL Urine Blood Trace H (Negative) Urine Nitrite Negative (Negative) Ur Leukocyte Esterase Large (3+) H (Negative) Urine RBC 0-2 (0-2) /HPF Urine WBC 6-10 H (0-5) /HPF Ur Squamous Epith Cells 0-2 (0-2) /HPF Urine Bacteria None Seen (None Seen) Hyaline Casts 11-20 (0-2) /LPF Independent Interpretation I performed an independent interpretation of an: EKG, Plain X-Ray and CT Scan Radiology Impression Discussion of test interpretation with radiology: I have reviewed the radiologist's reading. Critical Care Time Critical Care Time Critical Care Time: Yes Total Critical Care Time: 35 Attestation: I attest to this time spent taking care of the patient, obtaining history, physical, reviewing labs, imaging, treatment of patients condition +/- specialist/hospitalist consult +/- procedure Discharge Plan Discharge Clinical Impression: Altered mental status, Dementia, Rhabdomyolysis, UTI (urinary tract infection), Elevated troponin, MOLLY (acute kidney injury) Patient Disposition: Admitted As Inpatient Print Language: [place]
--- NOTE | 2025-04-07 12:23 | ECG_ITS ---
Test Reason : AMS Blood Pressure : */* mmHG Vent. Rate : 74 BPM Atrial Rate : 74 BPM P-R Int : 142 ms QRS Dur : 92 ms QT Int : 448 ms P-R-T Axes : 88 59 77 degrees QTcB Int : 497 ms Normal sinus rhythm Incomplete right bundle branch block Nonspecific T wave abnormality Prolonged QT Abnormal ECG No previous ECGs available Referred By: Maura Soto Electronically Signed By: OSBALDO RODRIGUEZ MD
[2025-04-07 12:31] VITALS: BP 130/72; BP 138/52; PULSE 73; RESP 16; TEMP 36.7; O2SAT 98; BMI 18.0
[2025-04-07 13:03] LABS: MANUAL DIFF FLAG NO
[2025-04-07 13:05] LABS: Hematocrit 31.4 % (37.0-47.0); Hemoglobin 11.2 g/dl (12.0-16.0); Imm Gran Abs Auto 0.03 X10*3/uL (0.00-0.03); Imm Gran Pct Auto 0.3 % (0.0-0.4); Lymphocytes Absolute Auto 1.1 X10*3/uL (1.2-4.9); Mean Corpuscular HGB Conc 35.7 g/dl (31.0-35.0); Mean Corpuscular Hemoglobin 34.7 pg (27.0-33.0); Mean Corpuscular Volume 97.2 fL (80.0-98.0); NRBC Abs Auto 0.000 X10*3/uL (0.0-0.012); NRBC Pct Auto 0.0 /100WBC (0.0-0.2); Platelet Count 214 X10*3/uL (160-400); Red Blood Count 3.23 X10*6/uL (4.20-5.50); White Blood Count 9.1 X10*3/uL (4.8-10.8)
[2025-04-07 13:10] LABS: INTERNATIONAL NORM RATIO 1.0 (0.9-1.1); Prothrombin Time 11.6 SEC (10.9-12.4)
[2025-04-07 13:34] LABS: Troponin-I High Sensitivity 194.1 ng/L (<3.5-17.0)
[2025-04-07 13:40] LABS: Alanine Aminotransferase 30 U/L (0-31); Albumin Level 4.2 g/dL (3.5-5.0); Alkaline Phosphatase 81 U/L (39-117); Anion Gap 17 (12-20); Aspartate Amino Transferase 66 U/L (5-31); Blood Urea Nitrogen 25 mg/dL (9-16); Calcium 9.7 mg/dL (8.4-10.2); Carbon Dioxide 21 mmol/L (22-29); Chloride 104 mmol/L (96-108); Creatinine Clr Calc Pharmacy 51.7; Estimated Glomerular Filt Rate > 60; Magnesium 1.6 mg/dL (1.6-2.6); Potassium 4.4 mmol/L (3.3-5.1); Sodium 138 mmol/L (135-145); Total Protein 7.3 g/dL (6.5-8.0)
[2025-04-07] MEDS: SODIUM CHLORIDE 1257 ML IV (14:55)
[2025-04-07 15:20] LABS: Appearance Urine Cloudy; Glucose Urine UA Negative (Negative); PH 5.5 (5.0-9.0); Specific Gravity - Urine 1.015 (1.005-1.025); UMIC TRIGGER UACC YES
[2025-04-07 15:28] LABS: UACC Culture Trigger YES
[2025-04-07 15:36] LABS: Troponin-I High Sensitivity 207.4 ng/L (<3.5-17.0)
--- NOTE | 2025-04-07 15:41 | PM.IMHP ---
History of Present Illness Date of Service: 04/07/25 Attending physician on admission: Salvador Elizabeth Chief Complaint: s/p fall unwitnessed Medical Management Trainer used Pt is a 74 yo slovak speaking female with PMH DMII, HTN, HLD, CARLOS, Glaucoma, Cataracts, dementia, CVA with significant deficits, edentulous, former smoker and alcohol use disorder now sober, presents to ED after being found on the floor in her bedroom at home where she lives with her nephew and his . Per pt's family member, pt was responsive and was found on the floor at 11AM. Pt was speaking to her sister (who is not there) and asking for her and was confused. Pt was recently started on ABX for a UTI. Pt also has been having diarrhea. Per family member, secondary to stroke, pt is not able to ambulate and cannot navigate out of bed on her own. These type of incidents have happened often over the past year since pt moved from [place] to here to live with family. Family will not consider placement in NH. The nephew is pt's TEST FACILITY ENGINEER and pt does have [employer]. Family stated they will now plan to place camera in the room but this may not prevent further incidents. Family are open to more suport and education. Work up in the ED noted evidence of rhabdomyolosis with Total CK 4550 and elevated troponins. Pt currently chest pain free. ECG notes incomplete RBBB and prolonged Qtc. BNP added and is pending. Vitals are currently stable with on evidence of hypoxia or sepsis. Maria was inserted in the ED as well. CT head and cervical spine negative for acute findings. CXR also negative for PNA, pulmonary edema or pleural effusion. Pt does have a new skin tear Left forearm and 2 abrasions on B knees. Backside appears intact. Patient's TSH low with a normal free T4. No evidence of thyroid storm. Additional testing has been ordered. Incidentally, in order for pt to have cataract surgery, family were instructed to inject lantus for one week in hopes that BG levels would go down in order to have the surgery. The surgery did not occur and family are not currently using lantus at this time. Family do not check blood glucose levels routinely. Family reports appetite is good and pt eats very fast. BMI currently 18.0. Review of Systems Review of Systems: Using group work program aide patient denies any abdominal pain, chest pain, shortness of breath at rest. Patient denies any pain in her lower legs. Patient did have 1 episode of diarrhea yesterday and wears depends usually. Per family appetite has been good and patient eats very fast when she tries to eat with no evidence of coughing or choking. And is currently edentulous with no plans for dentures Yes all other systems are reviewed and are negative [facility] Medical History (Updated 04/07/25 @ 16:43 by KRYSTAL Fish) CVA (cerebral vascular accident) Hyperlipidemia Glaucoma Cataracts, bilateral Hypertension Diabetes 1.5, managed as type 2 Cognitive capacity: alert to self, knows family Functional capacity: bed bound Patient : No Pertinent family history: no children, never Social History Unable to assess alcohol history related to: Unknown Patient Tobacco Use Status: Tobacco use Unknown Advance Directives: No Advance Directives Information Provided: Yes Patient : No Ebola Risk: Travel/Contact With Anyone From Affected Area/s: No Has Patient Experienced Ebola Symptoms: No Meds Allergies Allergy/AdvReac Type Severity Reaction Status Date / Time Unable to Assess Allergy Verified 04/07/25 12:33 Active Medications: Current Medications Acetaminophen (Ofirmev) 1,000 mg in 100 mls @ 400 mls/hr IV ONCE ONE Stop: 04/07/25 15:49 Home Medications ?Medication ?Instructions ?Recorded ?Confirmed ?Last Taken ?Type alendronate 70 mg tablet 70 mg PO TH@0600 04/07/25 04/07/25 04/04/25 History ammonium lactate 12 % lotion 1 appl topical DAILY PRN Dry Skin 04/07/25 04/07/25 Unknown History aspirin 81 mg tablet,delayed 81 mg PO DAILY 04/07/25 04/07/25 04/07/25 History release atorvastatin 20 mg tablet 20 mg PO DAILY 04/07/25 04/07/25 04/07/25 History calcium 600 mg (as 1 tab PO DAILY 04/07/25 04/07/25 04/07/25 History carbonate)-vitamin D3 20 mcg (800 unit) tablet cefpodoxime 200 mg tablet 200 mg PO BID 04/07/25 04/07/25 04/07/25 History ferrous sulfate 325 mg (65 mg 325 mg PO DAILY 04/07/25 04/07/25 04/07/25 History iron) tablet insulin glargine 100 unit/mL 5 unit subcut BEDTIME 04/07/25 04/07/25 Unknown History subcutaneous solution (Lantus U-100 Insulin) latanoprost 0.005 % eye drops 1 drp ophthalmic (eye) BEDTIME 04/07/25 04/07/25 Unknown History linagliptin 5 mg-metformin ER 1 tab PO DAILY 04/07/25 04/07/25 04/07/25 History 1,000 mg tablet,extended release 24 hr (Jentadueto XR) lisinopril 40 mg tablet 40 mg PO DAILY 04/07/25 04/07/25 04/07/25 History propranolol 20 mg tablet 20 mg PO BID 04/07/25 04/07/25 04/07/25 History Physical Exam Vital Signs and Narrative: Vital Signs: Last Vital Signs Temp 98.0 F 04/07/25 12:31 Pulse 73 04/07/25 12:31 Resp 16 04/07/25 12:31 BP 138/52 L 04/07/25 12:31 Pulse Ox 98 04/07/25 12:31 O2 Del Method Room Air 04/07/25 12:31 BMI result Body Mass Index 18.0 Alert to self, able to follow commands stated in slovak Neuro: CN II-X11 intact, no strength noted in BLE's EYES: PERRLA, EOM intact, sclera nonicteric, conjunctiva pink ENT: mildly [place], no issues with swallowing, uvula midline, lips moist, nares patent no epistaxis, edentulous Cardiac: S1 S2 RRR, no murmur, no JVD, no edema in Lower ext Pulmonary: lungs diminished B Abdominal: BS active in all 4 quadrants, no guarding, tenderness, rebounding MSK: strength 3/5 upper extremities, 1/5 BLEs : maria in place draining yellow urine no sediment seen Extremities: no edema in lower extremities, PT and DP pulses palpable +2 Psych: mood stable, judgement and insight poor SKin: abrasions superficial B knees, Left forearm skin tear backside intact, scar over sacrum, no report of back surgery per family Results Labs 04/07/25 12:56 04/07/25 12:56 Labs: Laboratory Results - last 24 hr 04/07/25 04/07/25 12:56 14:54 MCV 97.2 MCH 34.7 H MCHC 35.7 H RDW 12.6 Plt Count 214 MPV 10.0 Immature Gran % (Auto) 0.3 Neut % (Auto) 81.0 H Lymph % (Auto) 11.6 L [place] % (Auto) 6.9 Eos % (Auto) 0.0 Baso % (Auto) 0.2 Lymph # (Auto) 1.1 L [place] # (Auto) 0.6 Eos # (Auto) 0.0 Baso # (Auto) 0.0 Abs Immat Gran (auto) 0.03 Absolute Neuts (auto) 7.3 Absolute Nucleated RBC 0.000 Nucleated RBC % (auto) 0.0 PT 11.6 INR 1.0 Anion Gap 17 Estim Creat Clear Calc 51.7 Estimated GFR > 60 Random Glucose 162 H Lactic Acid 1.9 Calcium 9.7 D Magnesium 1.6 Total Bilirubin 0.8 AST 66 H ALT 30 Alkaline Phosphatase 81 Total Creatine Kinase 4559 H Total Protein 7.3 Albumin 4.2 Urine Color Yellow Urine Appearance Cloudy Urine pH 5.5 Ur Specific [place] 1.015 Urine Protein Trace Urine Glucose (UA) Negative Urine Ketones 40 Urine Blood Trace H Urine Nitrite Negative Ur Leukocyte Esterase Large (3+) H Urine RBC 0-2 Urine WBC 6-10 H Ur Squamous Epith Cells 0-2 Urine Bacteria None Seen Hyaline Casts 11-20 ECG Attestation: I personally reviewed and interpreted this ECG as follows: (NSR, IRBBB, Prolonged Qtc ) Prior ECG tracings: available for review Imaging Radiologist's Impressions: HEAD CT IMPRESSION: 1. No acute intracranial findings. Cervical SPine CT IMPRESSION: 1. No evidence of acute injury to the cervical spine. 2. Straightening of the normal cervical lordosis with mild rightward curvature of the midcervical spine. 3. Moderate multilevel cervical spondylosis. CXR negative for acute findings Assessment and Plan (1) Rhabdomyolysis: Qualifiers: Rhabdomyolysis type: non-traumatic Qualified Code(s): M62.82 - Rhabdomyolysis Status: Acute Plan Medical Management Trainer used Pt is a 74 yo slovak speaking female with PMH DMII, HTN, HLD, CARLOS, Glaucoma, Cataracts, dementia, CVA with significant deficits, edentulous, former smoker and hx of alcohol use disorder now sober, presents to ED after being found on the floor in her bedroom at home where she lives with her nephew and his . Per pt's family member, pt was responsive and was found on the floor at 11AM. Per family, pt baseline is confused, but was seeking her sister who does not live here. Pt recently started ABX for UTI. Rhabdomyolysis s/p unwitnessed fall IVF bolus with continuous rate ordered CK levels in AM Renal fx stable, based on labs from September 2024, pt is at baseline BMP daily CT head and Spine negative PT eval Elevated troponin Trend troponins Telemetry BNP pending, if elevated will order echo, obtain cardiology consult No ischemic changes on ECG Prolonged Qtc MG 1.6, 2 gms given, daily MG Repeat ECG in AM Home meds reviewd, pt is not on any QT prolonging medications at this time Telemetry DMII SSI Diabetic diet Check A1C in AM Hx of using Lantus short duration to be eligible for cataract surgery, may need to evaluate need for insulin regularly Subclinical Hyperthyroidism TSH low, FT4 WNL, ordered free T3 Endocrine follow up as an outpatient Sent Thyroglobulins for AM No evidence of thyroid storm CARLOS Continue Iron once med rec completed HX CVA dependent for all apsects of care (ADLs/IADLs) CM consulted as pt has had numerous falls at home Pt's nephew is also TEST FACILITY ENGINEER High Fall Risk Edentulous, low wt -ST eval and high value associate consulted DVT prophyulaxis: lovenox MED REC PENDING FULL CODE STATUS Quality Stroke Does the patient have a stroke diagnosis?: No Reason for No Anti-thrombotic by Day Two: N/A - Med Ordered VTE Prior VTE?: No VTE Risk Level:: Medical - moderate - high VTE Device Contraindication: N/A - Device Ordered VTE Drug Contraindication: N/A - Med Ordered
[2025-04-07 16:24] LABS: Free T4 (Free Thyroxine) 1.26 ng/dL (0.71-1.85); Thyroid Stimulating Hormone 0.04 uIU/mL (0.32-4.0)
[2025-04-07] MEDS: 0.9 % Sodium Chloride Flush 3 ML SYRINGE IVFLUSH (16:30)
[2025-04-07 16:31] VITALS: BP 121/52; PULSE 85; RESP 16; TEMP 37.4; O2SAT 99
[2025-04-07 16:32] VITALS: BP 118/48; PULSE 85
[2025-04-07] MEDS: Magnesium Sulfate/H2O 2 GM/50 ML PIGGYBACK IV (17:13)
--- NOTE | 2025-04-07 17:32 | PHA.MEDREC ---
Pharmacy Consult ? Medication Reconciliation Pharmacy has completed the medication reconciliation.Med rec complete, spoke to patients family via lime trimmer and they also had medication bottles for most of her active medications.
--- NOTE | 2025-04-07 17:53 | PC.NURSE ---
Addendum entered by Leigh Gould RN 04/07/25 18:37: ABD placed to LFA by EMS for reported skin tear occurring from fall per reports. Original Note: Pt to ED 16 for increases AMS and after being found on floor at home by care givers. Pt with hx of dementia and Somali speaking only. #20 to R FA and # 22 to L AC,labs collected and sent. Pt placed on bedside monitor. Martinez cath inserted per MD order, moderate amount of CYU noted. U/A collected and sent.
[2025-04-07 18:05] VITALS: BP 112/78; PULSE 76; RESP 21; TEMP 36.6; O2SAT 93
--- NOTE | 2025-04-07 18:06 | MHC.EDTECH ---
patient is combative and pulling leads off while doing his EKG attempted multiple time with no success nurse aware
[2025-04-07 18:21] VITALS: BP 113/43; PULSE 84; RESP 26; TEMP 37.4; O2SAT 98
[2025-04-07 18:31] LABS: Glucose, Whole Blood 166 mg/dL (60-115)
[2025-04-07 19:40] LABS: Troponin-I High Sensitivity 206.3 ng/L (<3.5-17.0)
--- NOTE | 2025-04-07 20:18 | PC.NURSE ---
This documentation writer assumed care of this Pt at 1925. Pt A&Ox3, [place], reports pain to bilateral legs. Nephew at bedside reports Pt takes tramadol for pain. Provider Anna Fair made aware, awaiting new orders.
[2025-04-07 21:18] VITALS: BP 113/54; PULSE 85; RESP 20; TEMP 36.8; O2SAT 98
[2025-04-07 21:18] LABS: Glucose, Whole Blood 136 mg/dL (60-115)
[2025-04-07] MEDS: Insulin Glargine,Hum.rec.anlog 100 UNIT/ML 10 ML VIAL SUBCUT (21:37)
[2025-04-07] MEDS: Latanoprost 0.005 % Ophth Sol 2.5 ML DROPS 1 DROP EYE-BOTH (21:38)
[2025-04-08] VITALS (10 sets, daily range): BP systolic 103–159; BP diastolic 48–77; PULSE 66–96; RESP 18–40; TEMP 36.9–37.5; O2SAT 94–100
[2025-04-08] MEDS: 0.9 % Sodium Chloride Flush 3 ML SYRINGE IVFLUSH (00:02)
[2025-04-08 05:17] LABS: Hematocrit 23.4 % (37.0-47.0); Hemoglobin 8.2 g/dl (12.0-16.0); Imm Gran Abs Auto 0.04 X10*3/uL (0.00-0.03); Imm Gran Pct Auto 0.7 % (0.0-0.4); Lymphocytes Absolute Auto 1.3 X10*3/uL (1.2-4.9); MANUAL DIFF FLAG NO; Mean Corpuscular HGB Conc 35.0 g/dl (31.0-35.0); Mean Corpuscular Hemoglobin 35.5 pg (27.0-33.0); Mean Corpuscular Volume 101.3 fL (80.0-98.0); NRBC Abs Auto 0.000 X10*3/uL (0.0-0.012); NRBC Pct Auto 0.0 /100WBC (0.0-0.2); Platelet Count 157 X10*3/uL (160-400); Red Blood Count 2.31 X10*6/uL (4.20-5.50); White Blood Count 6.0 X10*3/uL (4.8-10.8)
[2025-04-08 05:34] LABS: Magnesium 2.1 mg/dL (1.6-2.6)
[2025-04-08 05:36] LABS: Alanine Aminotransferase 23 U/L (0-31); Albumin Level 3.0 g/dL (3.5-5.0); Alkaline Phosphatase 61 U/L (39-117); Anion Gap 13 (12-20); Aspartate Amino Transferase 56 U/L (5-31); Blood Urea Nitrogen 17 mg/dL (9-16); Calcium 7.7 mg/dL (8.4-10.2); Carbon Dioxide 18 mmol/L (22-29); Chloride 114 mmol/L (96-108); Creatinine Clr Calc Pharmacy 52.5; Estimated Glomerular Filt Rate > 60; Potassium 4.0 mmol/L (3.3-5.1); Sodium 141 mmol/L (135-145); Total Protein 5.3 g/dL (6.5-8.0)
[2025-04-08 07:05] LABS: Glucose, Whole Blood 83 mg/dL (60-115)
--- NOTE | 2025-04-08 08:00 | ECG_ITS ---
Test Reason : PROLONG QT Blood Pressure : */* mmHG Vent. Rate : 81 BPM Atrial Rate : 81 BPM P-R Int : 150 ms QRS Dur : 96 ms QT Int : 444 ms P-R-T Axes : 91 61 43 degrees QTcB Int : 515 ms Normal sinus rhythm Low voltage QRS Incomplete right bundle branch block Prolonged QT Abnormal ECG When compared with ECG of 07-Apr-2025 13:45, No significant change was found Referred By: Avril Fair Electronically Signed By: OSBALDO RODRIGUEZ MD
[2025-04-08 08:07] LABS: Hemoglobin A1C 84.8072 umol/L; Total Hemoglobin (HGBA1C) 2175.3872 umol/L
--- NOTE | 2025-04-08 08:28 | PC.NURSE ---
Pt is calm, cooperative, seems to be a little confused about year but knows it's march, knows shes in the hospital but not not sure why, A+Ox2. RR even and unlabored, breath sounds clear bilat. Pt denies CP or SOB.
--- NOTE | 2025-04-08 09:31 | MHC.CM.PN ---
Patient has Dementia; CM spoke with Nephew/Adalberto at [phone] and addressed IMM with him; original will be mailed certified letter to Nephew and a copy will be placed on the chart.Patient lives in a house with her Nephew and his and she requires a w/c for mobility. 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 CM has initiated and will follow for dc planning. PCP is Dr. Ugalde and Patient will require BLS transport to home at time of dc.No HCP is on file.
[2025-04-08] MEDS: Calcium + Vitamin D 250 MG TABLET 500 MG PO (09:56)
[2025-04-08] MEDS: Ferrous Sulfate 324 MG TABLET.DR PO (09:57)
[2025-04-08] MEDS: Aspirin Enteric Coated 81 MG TABLET.DR PO (09:57)
--- NOTE | 2025-04-08 10:06 | PC.NURSE ---
bandage removed from LFA wound to assess site. Bandage was stuck to site, irrigated with normally saline. Wound scabbed over, black scab with some redness. No active drainage or bleeding. New bandage and wrap applied.
--- NOTE | 2025-04-08 10:13 | PC.NURSE ---
spoke to pharmacy regarding metformin medication on MAR that sts should be patients own med. Pharmacy sts they will bring it down.
--- NOTE | 2025-04-08 11:05 | MHC.SL.SWA ---
Speech Pathologist Impression: Mild oral phase dysphagia (edentulous, piecemeal mastication, anterior loss) Risk of Aspiration Due to: Cognitive status Poor self monitoring with PO intake Dysphasia Diet Status: Liquid Consistency and Strategies for Safe Swallow: Liquid Intake Recommendation: Thin Liquid Intake Strategies: Solid Food Consistency: Dietary Recommendations: Grnd/Mech Altered (NDD2) Additional Modifications to Solid Foods: Oral Medication Intake: Whole with Puree Please contact the pharmacy regarding appropriate crushable or liquid drug formulations that are available whenever modified delivery is recommended. Compensatory Strategies and Precautions to be Taken for Safe Swallow: Supervision While Eating and Drinking for Safe Swallow: Total Assistance (1:1) Foods to Avoid: Swallowing Recommended Treatments: Recommendation for Speech: Inpatient Speech Therapy Comment: Pt was seen in the ED, alert, pleasant, minimally verbal though she elicited spontaneous speech with rapid oromotor coordination in Czech. Voice unremarkable. Pt unable to follow cues, oromotor functioning observed during PO trials. Pt on NDD3 with thins, has no dentures. Pt able to chew solids with adequate lingual mobility, chewing observed to be somewhat piecemeal. Pt sipped thins by cup with efficient oropharyngeal coordination, clearing oral residuals when given liquids intermittently with trials of solids. Pt held cookie and cup without assistance. Pt unable to coordinate taking spoonfuls of puree from cup, SALES ENABLEMENT CONSULTANT assisted. Pt able to hold spoon independently, observed to take consecutive tsps from container with rapid speed. Mild anterior loss observed when pt feeding herself with spoon as SALES ENABLEMENT CONSULTANT held container. Pt aware of anterior loss, wiping mouth with tissue. Pt accepted when breaks were implemented. No overt s/s of aspiration observed during clinical bedside swallow evaluation. Recc NDD2 with thins, meds in puree, 1:1 assistance during meals, aspiration precautions. SALES ENABLEMENT CONSULTANT will follow. MD notified by text that diet downgraded, RNs in ED consulted. Frequency/Duration: Daily M-F Date Range for Service Req: Timeline to reassess: Photographic Reproduction Technician Clinican/Clinical Fellow: No Supervisory Statement: I have reviewed and agree with the student/clinical fellow's documentation: N/A Speech Language Pathologist: Lou Man M.S., CCC-SALES ENABLEMENT CONSULTANT
[2025-04-08] MEDS: METFORMIN PO (11:21)
[2025-04-08] MEDS: LINAGLIPTIN PO (11:21)
[2025-04-08 13:06] LABS: Glucose, Whole Blood 100 mg/dL (60-115)
[2025-04-08 17:23] LABS: Glucose, Whole Blood 124 mg/dL (60-115)
--- NOTE | 2025-04-08 17:54 | HO.PM.IMPN ---
Subjective Subjective Date of Service: 04/08/25 Interval History: Very pleasant Dutch-speaking patient. The patient has no new complaints today. Review of Systems Review of Systems: Yes Unobtainable due to mental status Physical Exam Exam: Exam: Alert to self, able to follow commands stated in austrian Neuro: CN II-X11 intact, no strength noted in BLE's EYES: PERRLA, EOM intact, sclera nonicteric, conjunctiva pink ENT: mildly [place], no issues with swallowing, uvula midline, lips moist, nares patent no epistaxis, edentulous Cardiac: S1 S2 RRR, no murmur, no JVD, no edema in Lower ext Pulmonary: lungs diminished B Abdominal: BS active in all 4 quadrants, no guarding, tenderness, rebounding MSK: strength 3/5 upper extremities, 1/5 BLEs : maria in place draining yellow urine no sediment seen Extremities: no edema in lower extremities, PT and DP pulses palpable +2 Psych: mood stable, judgement and insight poor Vital Signs: Vital Signs: Last Vital Signs Temp 99.5 F 04/08/25 17:16 Pulse 79 04/08/25 17:16 Resp 26 H 04/08/25 17:16 BP 144/60 H 04/08/25 17:16 Pulse Ox 94 04/08/25 17:16 O2 Del Method Room Air 04/08/25 17:16 BMI result Body Mass Index 18.0 Objective Data Active Medications Acetaminophen (Acetaminophen 325 Mg Tablet) 650 mg PO Q6H PRN PRN Reason: Pain, Mild 1-3,fever,headache Last Admin: 04/08/25 14:59 Dose: 650 mg Documented By: NABIL Albuterol/Ipratropium (Albuterol/Iprat 2.5/0.5mg 3 Ml Ampul.Neb) 3 ml INHALE Q4H PRN PRN Reason: Shortness of Breath/Wheezing Aspirin (Aspirin Enteric Coated 81 Mg Tablet.) 81 mg PO DAILY [facility] Last Admin: 04/08/25 09:57 Dose: 81 mg Documented By: NABIL Atorvastatin Calcium (Atorvastatin Calcium 20 Mg Tablet) 20 mg PO DAILY [facility] Last Admin: 04/08/25 09:56 Dose: 20 mg Documented By: NABIL Calcium Carbonate (Calcium Carbonate 750 Mg Tab.Chew) 750 mg PO Q4H PRN PRN Reason: Heartburn Calcium Carbonate/Cholecalciferol (Calcium + Vitamin D 250 Mg Tablet) 500 mg PO DAILY [facility] Last Admin: 04/08/25 09:56 Dose: 500 mg Documented By: NABIL Ceftriaxone Sodium (Ceftriaxone Sodium 1 Gm Vial) 1 gm IVPUSH Q24H [facility] Stop: 04/13/25 13:59 Last Admin: 04/08/25 13:58 Dose: 1 gm Documented By: FORREST Dextrose (Dextrose 50 % 25 Gm/50 Ml Syringe) 25 gm IVPUSH Q15M PRN; Protocol PRN Reason: per Hypoglycemia Standing Ord. Enoxaparin Sodium (Enoxaparin Sodium 40 Mg/0.4 Ml Syringe) 40 mg SUBCUT Q24H [facility] Last Admin: 04/08/25 16:29 Dose: 40 mg Documented By: NABIL Ferrous Sulfate (Ferrous Sulfate 324 Mg Tablet.Dr) 324 mg PO DAILY [facility] Last Admin: 04/08/25 09:57 Dose: 324 mg Documented By: NABIL Glucose (Glucose Gel 15 Gm Gel..Gram.) 15 gm PO Q15M PRN; Protocol PRN Reason: per Hypoglycemia Standing Ord. Sodium Chloride (Ns) 1,000 mls @ 100 mls/hr IVCONT .Q10H [facility] Last Admin: 04/08/25 11:46 Dose: 100 mls/hr Documented By: NABIL Insulin Glargine (Insulin Glargine,Hum.Rec.Anlog 100 Unit/Ml 10 Ml Vial) 5 unit SUBCUT BEDTIME [facility] Last Admin: 04/07/25 21:37 Dose: 5 unit Documented By: BALJEET Insulin Human Lispro (Insulin Lispro 100 Unit/Ml 3 Ml Vial) 0 unit SUBCUT QIDACHS [facility]; Protocol Last Admin: 04/08/25 17:27 Dose: Not Given Documented By: NABIL Non-Admin Reason: out of range Lactic Acid (Ammonium Lactate 12 % Lotion 226 Gm Bottle) 1 appl TOPICAL DAILY PRN; Protocol PRN Reason: Dry Skin Latanoprost (Latanoprost 0.005 % Ophth Bree 2.5 Ml Drops) 1 drop EYE-BOTH BEDTIME [facility] Last Admin: 04/07/25 21:38 Dose: 1 drop Documented By: BALJEET Magnesium Hydroxide (Milk Of Magnesia 30 Ml Oral.Susp) 30 ml PO DAILY PRN PRN Reason: Constipation Melatonin (Melatonin 3 Mg Tablet) 6 mg PO BEDTIME PRN PRN Reason: Insomnia Pt Own (Linagliptin- Metformin [ Jentadueto Xr] 5-1, 000 Mg Tablet, Ir - Er 1 tab PO DAILY [facility] Last Admin: 04/08/25 11:21 Dose: 1 tab Documented By: FORREST Comments: waiting for pharmacy to bring up Ondansetron HCl (Ondansetron Hcl 4 Mg/2 Ml Vial) 4 mg IVPUSH Q8H PRN PRN Reason: Nausea and Vomiting Polyethylene Glycol (Polyethylene Glycol 3350 17 Gm Powd.Pack) 17 gm PO DAILY PRN PRN Reason: Constipation Propranolol HCl (Propranolol Hcl 20 Mg Tablet) 20 mg PO BID [facility]; Protocol Last Admin: 04/08/25 09:57 Dose: 20 mg Documented By: NABIL Senna (Sennosides 8.6 Mg Tablet) 17.2 mg PO BEDTIME [facility] Last Admin: 04/07/25 21:34 Dose: 17.2 mg Documented By: BALJEET Sodium Chloride (0.9 % Sodium Chloride Flush 3 Ml Syringe) 3 ml IVFLUSH QSHIFT [facility] Last Admin: 04/08/25 16:29 Dose: Not Given Documented By: NABIL Non-Admin Reason: IV Running Labs 04/08/25 04:51 04/08/25 04:51 Labs: Laboratory Results - last 24 hr 04/07/25 04/07/25 04/08/25 18:24 21:15 04:51 MCV 101.3 H MCH 35.5 H MCHC 35.0 RDW 13.0 Plt Count 157 L D MPV 9.8 Immature Gran % (Auto) 0.7 H Neut % (Auto) 69.0 Lymph % (Auto) 21.9 [place] % (Auto) 7.3 Eos % (Auto) 0.8 Baso % (Auto) 0.3 Lymph # (Auto) 1.3 [place] # (Auto) 0.4 Eos # (Auto) 0.1 Baso # (Auto) 0.0 Abs Immat Gran (auto) 0.04 H Absolute Neuts (auto) 4.2 Absolute Nucleated RBC 0.000 Nucleated RBC % (auto) 0.0 Anion Gap 13 Estim Creat Clear Calc 52.5 Estimated GFR > 60 POC Glucose 166 H 136 H Random Glucose 135 H Estimat Average Glucose 117 Hemoglobin A1c % 5.7 Calcium 7.7 L D Magnesium 2.1 Total Bilirubin 0.3 AST 56 H ALT 23 Alkaline Phosphatase 61 Total Creatine Kinase 4020 H Total Protein 5.3 L Albumin 3.0 L 04/08/25 04/08/25 04/08/25 06:59 13:01 17:19 MCV MCH MCHC RDW Plt Count MPV Immature Gran % (Auto) Neut % (Auto) Lymph % (Auto) [place] % (Auto) Eos % (Auto) Baso % (Auto) Lymph # (Auto) [place] # (Auto) Eos # (Auto) Baso # (Auto) Abs Immat Gran (auto) Absolute Neuts (auto) Absolute Nucleated RBC Nucleated RBC % (auto) Anion Gap Estim Creat Clear Calc Estimated GFR POC Glucose 83 100 124 H Random Glucose Estimat Average Glucose Hemoglobin A1c % Calcium Magnesium Total Bilirubin AST ALT Alkaline Phosphatase Total Creatine Kinase Total Protein Albumin Microbiology Microbiology Results: Microbiology 04/07/25 14:54 Blood Culture - Preliminary Blood - Venous No growth after 24 hours. 04/07/25 14:54 Blood Culture - Preliminary Blood - Venous No growth after 24 hours. 04/07/25 Unknown Urine Culture - Preliminary Urine Catheterized - Maria Catheter No growth to date. Assessment and Plan (1) Hypertension: Status: Acute (2) MOLLY (acute kidney injury): Status: Acute (3) Rhabdomyolysis: Status: Acute (4) CVA (cerebral vascular accident): Status: Acute Plan 74-year-old Dutch-speaking female, background history of type 2 diabetes mellitus, hypertension, hyperlipidemia, idea, dementia, CVA with residual deficit, former smoker, previous alcohol use disorder, presents to the ED after unwitnessed fall at home, admitted with rhabdomyolysis. Rhabdomyolysis s/p unwitnessed fall IVF bolus with continuous rate ordered CK levels in AM Renal fx stable, based on labs from September 2024, pt is at baseline BMP daily CT head and Spine negative PT eval X-ray hip and femur negative for fracture Elevated troponin Trend troponins Telemetry BNP pending, if elevated will order echo, obtain cardiology consult No ischemic changes on ECG Prolonged Qtc MG 1.6, 2 gms given, daily MG Repeat ECG in AM Home meds reviewd, pt is not on any QT prolonging medications at this time Telemetry DMII SSI Diabetic diet Check A1C in AM Hx of using Lantus short duration to be eligible for cataract surgery, may need to evaluate need for insulin regularly Subclinical Hyperthyroidism TSH low, FT4 WNL, ordered free T3 Endocrine follow up as an outpatient Sent Thyroglobulins for AM No evidence of thyroid storm CARLOS Continue Iron once med rec completed HX CVA dependent for all apsects of care (ADLs/IADLs) CM consulted as pt has had numerous falls at home Pt's nephew is also [employer] High Fall Risk Edentulous, low wt -ST eval and manager merchandise consulted DVT prophyulaxis: lovenox FULL CODE Total time managing care of this patient today: 35 minutes. Quality Stroke Does the patient have a stroke diagnosis?: No Reason for No Anti-thrombotic by Day Two: N/A - Med Ordered VTE Prior VTE?: No VTE Risk Level:: Medical - moderate - high VTE Device Contraindication: N/A - Device Ordered VTE Drug Contraindication: N/A - Med Ordered
[2025-04-08 21:00] LABS: MANUAL DIFF FLAG NO
[2025-04-08 21:01] LABS: Hematocrit 30.9 % (37.0-47.0); Hemoglobin 10.5 g/dl (12.0-16.0); Imm Gran Abs Auto 0.03 X10*3/uL (0.00-0.03); Imm Gran Pct Auto 0.3 % (0.0-0.4); Lymphocytes Absolute Auto 2.8 X10*3/uL (1.2-4.9); Mean Corpuscular HGB Conc 34.0 g/dl (31.0-35.0); Mean Corpuscular Hemoglobin 35.0 pg (27.0-33.0); Mean Corpuscular Volume 103.0 fL (80.0-98.0); NRBC Abs Auto 0.000 X10*3/uL (0.0-0.012); NRBC Pct Auto 0.0 /100WBC (0.0-0.2); Platelet Count 222 X10*3/uL (160-400); Red Blood Count 3.00 X10*6/uL (4.20-5.50); White Blood Count 9.8 X10*3/uL (4.8-10.8)
[2025-04-08 21:15] LABS: Alanine Aminotransferase 25 U/L (0-31); Albumin Level 3.3 g/dL (3.5-5.0); Alkaline Phosphatase 73 U/L (39-117); Anion Gap 12 (12-20); Aspartate Amino Transferase 55 U/L (5-31); Blood Urea Nitrogen 12 mg/dL (9-16); Calcium 7.6 mg/dL (8.4-10.2); Carbon Dioxide 17 mmol/L (22-29); Chloride 116 mmol/L (96-108); Creatinine Clr Calc Pharmacy 59.0; Estimated Glomerular Filt Rate > 60; Potassium 4.0 mmol/L (3.3-5.1); Sodium 141 mmol/L (135-145); Total Protein 6.0 g/dL (6.5-8.0)
[2025-04-08 21:42] LABS: Glucose, Whole Blood 162 mg/dL (60-115)
[2025-04-08] MEDS: Insulin Glargine,Hum.rec.anlog 100 UNIT/ML 10 ML VIAL SUBCUT (21:52)
[2025-04-08] MEDS: Latanoprost 0.005 % Ophth Sol 2.5 ML DROPS 1 DROP EYE-BOTH (21:55)
--- NOTE | 2025-04-08 22:02 | PM.EVENT ---
Event Note Date of Service: 04/08/25 Event Note: Received update from nursing staff that patient had at 845pm had an episode which appeared to be a vasovagal response after moving her bowels. Patient initially noted to be diaphoretic while having a liquid stool, 3rd or 4th episode for today. Patient then became hypoxic heart rate in the 130s, eyes rolled back in the head but no seizure activity was noted. Symptoms resolved within sec. Stool panel was sent and patient continues on IV fluids for rhabdomyolysis. Nursing will keep hospitalists updated with any new events. Patient placed on precautions until stool panel completed. Time Spent With Patient Time: Total time managing care of this patient today ____ minutes.
--- NOTE | 2025-04-08 22:06 | PC.NURSE ---
Primary RN to the POD to assist with a code assist alarm, upon arrival back to the floor the pt was found with the curtain drawn, MDs, RNs, family and RT at bedside shortly before 2100. The pt was reported to have displayed symptoms of a seizure vs a vasovagal episode. Per those at bedside during the event, staff was in the room to assist the patient with pericare and to assist with bed change s/t continued stool incontinence, at which time she was noted to have a locked in gaze, be unresponsive, desat to the 60s, and became tachycardia with a heart rate in the 140s-150s. By the time this RN arrived to bedside the pt was alert, more responsive to ethiopian language spoken by MD and new orders obtained for new/additional lab work. This RN spoke with Avril JONES from the hospitalist group and made her aware of the reported incident.
[2025-04-08 22:59] LABS: Reflex Lactate? Lactic Acid Added
[2025-04-08 23:51] LABS: ~Lactic Acid-LAB USE ONLY 1.5 mmol/L (0.5-2.0)
[2025-04-09] VITALS (8 sets, daily range): BP systolic 113–156; BP diastolic 56–68; PULSE 61–89; RESP 14–20; TEMP 36.1–37.2; O2SAT 92–99; BMI 19.8
[2025-04-09 07:41] LABS: Glucose, Whole Blood 53 mg/dL (60-115)
[2025-04-09 08:20] LABS: Glucose, Whole Blood 87 mg/dL (60-115)
[2025-04-09 08:30] LABS: Anion Gap 13 (12-20); Blood Urea Nitrogen 9 mg/dL (9-16); Calcium 7.8 mg/dL (8.4-10.2); Carbon Dioxide 20 mmol/L (22-29); Chloride 113 mmol/L (96-108); Creatinine Clr Calc Pharmacy 79.4; Estimated Glomerular Filt Rate > 60; Potassium 3.8 mmol/L (3.3-5.1); Sodium 142 mmol/L (135-145)
[2025-04-09] MEDS: Ferrous Sulfate 324 MG TABLET.DR PO (09:30)
[2025-04-09] MEDS: Calcium + Vitamin D 250 MG TABLET 500 MG PO (09:30)
[2025-04-09] MEDS: METFORMIN PO (09:30)
[2025-04-09] MEDS: Aspirin Enteric Coated 81 MG TABLET.DR PO (09:30)
[2025-04-09] MEDS: LINAGLIPTIN PO (09:30)
[2025-04-09] MEDS: 0.9 % Sodium Chloride Flush 3 ML SYRINGE IVFLUSH ×3 (09:31→21:49)
[2025-04-09 10:17] LABS: OBS1 POSITIVE (NEGATIVE)
[2025-04-09 10:18] LABS: OBS Int Ctl Valid YES
[2025-04-09 10:54] LABS: CDiff Gene PCR NEGATIVE (Negative)
[2025-04-09 11:13] LABS: Glucose, Whole Blood 122 mg/dL (60-115)
--- NOTE | 2025-04-09 12:13 | MHC.SL.SWA ---
Speech Pathologist Impression: Risk of Aspiration Due to: Dysphasia Diet Status: Recommend continue on GROUND MECHANICAL (NDD2) with THIN liquids, pills crushed in puree, 1-1 feeding. Liquid Consistency and Strategies for Safe Swallow: Liquid Intake Recommendation: Thin Liquid Intake Strategies: Small Sips Solid Food Consistency: Dietary Recommendations: Grnd/Mech Altered (NDD2) Additional Modifications to Solid Foods: Patient requires one to one feeding. Alternate liquids and solids. Liquids by controlled cup sip, no straws. Oral Medication Intake: Whole with Puree Please contact the pharmacy regarding appropriate crushable or liquid drug formulations that are available whenever modified delivery is recommended. Compensatory Strategies and Precautions to be Taken for Safe Swallow: Supervision While Eating and Drinking for Safe Swallow: Total Assistance (1:1) Foods to Avoid: Swallowing Recommended Treatments: Recommendation for Speech: Inpatient Speech Therapy Comment: Patient seen mid morning for re-assessment. Patient was awake, communicative, moderately confused, speaking very softly in Liberian, with daughter present in room. Patient accepted trials of pudding with hard pieces of cracker, producing a munching pattern with gums to masticate the cracker, registering some mild discomfort with the texture. Patient took three bites of this consistency, producing this prolonged, modified chew with timely swallow on each bite. Patient then was encouraged to feed self some of the pudding, which patient did with some difficulty, appearing confused and having some difficulty efficiently stripping the spoon on each bite. Patient also took sips of liquid both by controlled cup sip timely oral and pharyngeal phase of swallow. On trial of straw sip, patient took rapid serial sips, and after was noted to cough. No upgrade recommended at this time, as patient has difficulty with oral management of more advanced texture. Recommend continue on GROUND MECHANICAL (NDD2) with THIN liquids, pills crushed in puree, 1-1 feeding. Liquids by controlled cup sip, no straws. Frequency/Duration: Daily M-F Date Range for Service Req: Timeline to reassess: Ampoule Washing Machine Operator Clinican/Clinical Fellow: No Supervisory Statement: I have reviewed and agree with the student/clinical fellow's documentation: N/A Speech Language Pathologist: Leigh Mcgill M.A., CCC-PROPELLER ENGINEER
[2025-04-09 12:35] LABS: B Type Natriuretic Peptide 667 pg/mL (<100)
[2025-04-09] MEDS: Albuterol/Iprat 2.5/0.5MG 3 ML AMPUL.NEB INHALE ×2 (12:35→18:20)
--- NOTE | 2025-04-09 13:12 | HO.PM.IMPN ---
Subjective Subjective Date of Service: 04/09/25 Interval History: Very pleasant elderly female - dementia Daughter by bedside Patient comfortable in bed, receiving IV fluids. Endorses persistent left hip pain. Daughter endorses that the patient has been suffering with lots of falls at home and instability, especially at night. Has become especially difficult for her and family members to manage her. Possible visual hallucinations. Review of Systems Review of Systems: Yes all other systems are reviewed and are negative Physical Exam Exam: Exam: General: A&O x3, oriented to time place person and situation, comfortable, no pain Cardiac: S1, S2 auscultated with no S3/4, no MRG. Well perfused. Respiratory: Normal breath sounds auscultated throughout all lung zones, without wheezing, rales. Normal rate. GI/ : No abdominal pain on palpation, no masses or distentions. MSK: Normal ambulation without pain at bony prominences or musculature Neurological: Normal neurological examination on overview, without obvious CN II-XII abnormalities. Vital Signs: Vital Signs: Last Vital Signs Temp 98.9 F 04/09/25 11:00 Pulse 89 04/09/25 12:38 Resp 18 04/09/25 12:38 BP 155/66 H 04/09/25 11:00 Pulse Ox 92 04/09/25 11:00 O2 Del Method Room Air 04/09/25 11:00 O2 Flow Rate 2 04/09/25 07:26 BMI result Body Mass Index 19.8 Objective Data Active Medications Acetaminophen (Acetaminophen 325 Mg Tablet) 650 mg PO Q6H PRN PRN Reason: Pain, Mild 1-3,fever,headache Last Admin: 04/08/25 14:59 Dose: 650 mg Documented By: NABIL Albuterol/Ipratropium (Albuterol/Iprat 2.5/0.5mg 3 Ml Ampul.Neb) 3 ml INHALE Q4H PRN PRN Reason: Shortness of Breath/Wheezing Last Admin: 04/09/25 12:35 Dose: 3 ml Documented By: AJAY Aspirin (Aspirin Enteric Coated 81 Mg Tablet.) 81 mg PO DAILY [facility] Last Admin: 04/09/25 09:30 Dose: 81 mg Documented By: JOSEFA Atorvastatin Calcium (Atorvastatin Calcium 20 Mg Tablet) 20 mg PO DAILY [facility] Last Admin: 04/09/25 09:30 Dose: 20 mg Documented By: JOSEFA Calcium Carbonate (Calcium Carbonate 750 Mg Tab.Chew) 750 mg PO Q4H PRN PRN Reason: Heartburn Calcium Carbonate/Cholecalciferol (Calcium + Vitamin D 250 Mg Tablet) 500 mg PO DAILY [facility] Last Admin: 04/09/25 09:30 Dose: 500 mg Documented By: JOSEFA Ceftriaxone Sodium (Ceftriaxone Sodium 1 Gm Vial) 1 gm IVPUSH Q24H [facility] Stop: 04/13/25 13:59 Last Admin: 04/08/25 13:58 Dose: 1 gm Documented By: FORREST Dextrose (Dextrose 50 % 25 Gm/50 Ml Syringe) 25 gm IVPUSH Q15M PRN; Protocol PRN Reason: per Hypoglycemia Standing Ord. Enoxaparin Sodium (Enoxaparin Sodium 40 Mg/0.4 Ml Syringe) 40 mg SUBCUT Q24H [facility] Last Admin: 04/08/25 16:29 Dose: 40 mg Documented By: NABIL Ferrous Sulfate (Ferrous Sulfate 324 Mg Tablet.Dr) 324 mg PO DAILY [facility] Last Admin: 04/09/25 09:30 Dose: 324 mg Documented By: JOSEFA Glucose (Glucose Gel 15 Gm Gel..Gram.) 15 gm PO Q15M PRN; Protocol PRN Reason: per Hypoglycemia Standing Ord. Sodium Chloride (Ns) 1,000 mls @ 100 mls/hr IVCONT .Q10H [facility] Last Admin: 04/09/25 09:30 Dose: 100 mls/hr Documented By: JOSEFA Insulin Glargine (Insulin Glargine,Hum.Rec.Anlog 100 Unit/Ml 10 Ml Vial) 5 unit SUBCUT BEDTIME [facility] Last Admin: 04/08/25 21:52 Dose: 5 unit Documented By: PAUL Insulin Human Lispro (Insulin Lispro 100 Unit/Ml 3 Ml Vial) 0 unit SUBCUT QIDACHS [facility]; Protocol Last Admin: 04/09/25 11:17 Dose: Not Given Documented By: JOSEFA Non-Admin Reason: No Insulin Coverage Lactic Acid (Ammonium Lactate 12 % Lotion 226 Gm Bottle) 1 appl TOPICAL DAILY PRN; Protocol PRN Reason: Dry Skin Latanoprost (Latanoprost 0.005 % Ophth Bree 2.5 Ml Drops) 1 drop EYE-BOTH BEDTIME [facility] Last Admin: 04/08/25 21:55 Dose: 1 drop Documented By: PAUL Magnesium Hydroxide (Milk Of Magnesia 30 Ml Oral.Susp) 30 ml PO DAILY PRN PRN Reason: Constipation Melatonin (Melatonin 3 Mg Tablet) 6 mg PO BEDTIME PRN PRN Reason: Insomnia Pt Own (Linagliptin- Metformin [ Jentadueto Xr] 5-1, 000 Mg Tablet, Ir - Er 1 tab PO DAILY [facility] Last Admin: 04/09/25 09:30 Dose: 1 tab Documented By: JOSEFA Ondansetron HCl (Ondansetron Hcl 4 Mg/2 Ml Vial) 4 mg IVPUSH Q8H PRN PRN Reason: Nausea and Vomiting Polyethylene Glycol (Polyethylene Glycol 3350 17 Gm Powd.Pack) 17 gm PO DAILY PRN PRN Reason: Constipation Propranolol HCl (Propranolol Hcl 20 Mg Tablet) 20 mg PO BID [facility]; Protocol Last Admin: 04/09/25 09:30 Dose: 20 mg Documented By: JOSEFA Senna (Sennosides 8.6 Mg Tablet) 17.2 mg PO BEDTIME [facility] Last Admin: 04/08/25 21:50 Dose: 17.2 mg Documented By: PAUL Sodium Chloride (0.9 % Sodium Chloride Flush 3 Ml Syringe) 3 ml IVFLUSH QSHIFT [facility] Last Admin: 04/09/25 09:31 Dose: 3 ml Documented By: JOSEFA Labs 04/08/25 20:56 04/09/25 07:51 Labs: Laboratory Results - last 24 hr 04/07/25 04/08/25 04/08/25 19:03 17:19 20:56 MCV 103.0 H MCH 35.0 H MCHC 34.0 RDW 13.2 Plt Count 222 D MPV 10.2 Immature Gran % (Auto) 0.3 Neut % (Auto) 63.5 Lymph % (Auto) 29.0 [place] % (Auto) 5.8 Eos % (Auto) 0.8 Baso % (Auto) 0.6 Lymph # (Auto) 2.8 [place] # (Auto) 0.6 Eos # (Auto) 0.1 Baso # (Auto) 0.1 Abs Immat Gran (auto) 0.03 Absolute Neuts (auto) 6.2 Absolute Nucleated RBC 0.000 Nucleated RBC % (auto) 0.0 Anion Gap 12 Estim Creat Clear Calc 59.0 Estimated GFR > 60 POC Glucose 124 H Random Glucose 237 H Lactic Acid 2.5 H* Lactic Acid F/U @ 2Hr Calcium 7.6 L Total Bilirubin 0.3 AST 55 H ALT 25 Alkaline Phosphatase 73 Total Creatine Kinase 3243 H B-Natriuretic Peptide 667 H Total Protein 6.0 L Albumin 3.3 L Stool Occult Blood C. difficile Tox B Gene Blood Type Antibody Screen 04/08/25 04/08/25 04/09/25 21:34 23:31 06:32 MCV MCH MCHC RDW Plt Count MPV Immature Gran % (Auto) Neut % (Auto) Lymph % (Auto) [place] % (Auto) Eos % (Auto) Baso % (Auto) Lymph # (Auto) [place] # (Auto) Eos # (Auto) Baso # (Auto) Abs Immat Gran (auto) Absolute Neuts (auto) Absolute Nucleated RBC Nucleated RBC % (auto) Anion Gap Estim Creat Clear Calc Estimated GFR POC Glucose 162 H Random Glucose Lactic Acid Lactic Acid F/U @ 2Hr 1.5 Calcium Total Bilirubin AST ALT Alkaline Phosphatase Total Creatine Kinase B-Natriuretic Peptide Total Protein Albumin Stool Occult Blood C. difficile Tox B Gene Blood Type O Positive Antibody Screen NEGATIVE 04/09/25 04/09/25 04/09/25 07:37 07:51 08:17 MCV MCH MCHC RDW Plt Count MPV Immature Gran % (Auto) Neut % (Auto) Lymph % (Auto) [place] % (Auto) Eos % (Auto) Baso % (Auto) Lymph # (Auto) [place] # (Auto) Eos # (Auto) Baso # (Auto) Abs Immat Gran (auto) Absolute Neuts (auto) Absolute Nucleated RBC Nucleated RBC % (auto) Anion Gap 13 Estim Creat Clear Calc 79.4 Estimated GFR > 60 POC Glucose 53 L* 87 Random Glucose 70 Lactic Acid Lactic Acid F/U @ 2Hr Calcium 7.8 L Total Bilirubin AST ALT Alkaline Phosphatase Total Creatine Kinase 1780 H B-Natriuretic Peptide Total Protein Albumin Stool Occult Blood C. difficile Tox B Gene Blood Type Antibody Screen 04/09/25 04/09/25 09:34 11:04 MCV MCH MCHC RDW Plt Count MPV Immature Gran % (Auto) Neut % (Auto) Lymph % (Auto) [place] % (Auto) Eos % (Auto) Baso % (Auto) Lymph # (Auto) [place] # (Auto) Eos # (Auto) Baso # (Auto) Abs Immat Gran (auto) Absolute Neuts (auto) Absolute Nucleated RBC Nucleated RBC % (auto) Anion Gap Estim Creat Clear Calc Estimated GFR POC Glucose 122 H Random Glucose Lactic Acid Lactic Acid F/U @ 2Hr Calcium Total Bilirubin AST ALT Alkaline Phosphatase Total Creatine Kinase B-Natriuretic Peptide Total Protein Albumin Stool Occult Blood POSITIVE C. difficile Tox B Gene NEGATIVE Blood Type Antibody Screen Microbiology Microbiology Results: Microbiology 04/07/25 Unknown Urine Culture - Final Urine Catheterized - Martinez Catheter No growth. 04/07/25 14:54 Blood Culture - Preliminary Blood - Venous No growth after 24 hours. 04/07/25 14:54 Blood Culture - Preliminary Blood - Venous No growth after 24 hours. Assessment and Plan (1) Elevated troponin: Status: Acute (2) MOLLY (acute kidney injury): Status: Acute (3) Rhabdomyolysis: Status: Acute (4) CVA (cerebral vascular accident): Status: Acute (5) Dementia: Status: Acute Plan 74-year-old Uzbek-speaking female, background history of type 2 diabetes mellitus, hypertension, hyperlipidemia, idea, dementia, CVA with residual deficit, former smoker, previous alcohol use disorder, presents to the ED after unwitnessed fall at home, admitted with rhabdomyolysis. Rhabdomyolysis s/p unwitnessed fall Frequent falls at home. CT head and Spine negative X-ray hip and femur negative for fracture Creatinine has been stable. CK has been down trending. Elevated troponin, suspected secondary to demand NSTEMI PLAN - daily BMP - daily CK - IVF infusion - monitor for evidence of volume overload - PT/OT/case management evaluation Elevated troponin - demand NSTEMI Trend troponins Telemetry No ischemic changes on ECG Prolonged Qtc MG 1.6, 2 gms given, daily MG Home meds reviewd, pt is not on any QT prolonging medications at this time Telemetry HX CVA dependent for all apsects of care (ADLs/IADLs) Dementia with behaviors No active delirium CM consulted as pt has had numerous falls at home Pt's nephew is also PROCESS CONTROL PROGRAMMER High Fall Risk Edentulous, low wt -ST eval and virtual classroom manager consulted DMII SSI Diabetic diet Check A1C in AM Hx of using Lantus short duration to be eligible for cataract surgery, may need to evaluate need for insulin regularly Subclinical Hyperthyroidism No evidence of thyroid storm CARLOS Continue Iron once med rec completed [employer] - VTE: Enoxaparin - CODE STATUS: Full code - DIET: Diabetic Total time managing care of this patient today: 35 minutes. Quality Stroke Does the patient have a stroke diagnosis?: No Reason for No Anti-thrombotic by Day Two: N/A - Med Ordered VTE Prior VTE?: No VTE Risk Level:: Medical - moderate - high VTE Device Contraindication: N/A - Device Ordered VTE Drug Contraindication: N/A - Med Ordered
[2025-04-09 13:25] LABS: E. coli EAEC Not Detected (Not Detect.); E. coli EPEC Detected (Not Detect.); E. coli ETEC Not Detected (Not Detect.); E. coli STEC Not Detected (Not Detect.); Shigella sp./EIEC Not Detected (Not Detect.)
--- NOTE | 2025-04-09 15:45 | MHC.CM.PN ---
HCP completed per pts request with elevator service mechanic present and pts tawanna Thornton present, copy now on file. Per [facility], pt active with [facility]: 14.5 hrs per week, and uses a bedside fall protective mat.
[2025-04-09 16:14] LABS: Glucose, Whole Blood 125 mg/dL (60-115)
[2025-04-09 20:57] LABS: Glucose, Whole Blood 189 mg/dL (60-115)
[2025-04-09 21:19] LABS: Thyroglobulin 61.0 ng/mL; Thyroglobulin Antibodies <1 IU/mL (< or = 1)
[2025-04-09] MEDS: Insulin Glargine,Hum.rec.anlog 100 UNIT/ML 10 ML VIAL SUBCUT (21:39)
[2025-04-10] VITALS (8 sets, daily range): BP systolic 113–141; BP diastolic 56–67; PULSE 72–87; RESP 16–22; TEMP 36.3–37.2; O2SAT 96–99
[2025-04-10 07:21] LABS: Glucose, Whole Blood 80 mg/dL (60-115)
[2025-04-10 08:23] LABS: Anion Gap 13 (12-20); Blood Urea Nitrogen 7 mg/dL (9-16); Calcium 7.7 mg/dL (8.4-10.2); Carbon Dioxide 23 mmol/L (22-29); Chloride 107 mmol/L (96-108); Creatinine Clr Calc Pharmacy 67.6; Estimated Glomerular Filt Rate > 60; Potassium 3.2 mmol/L (3.3-5.1); Sodium 140 mmol/L (135-145)
[2025-04-10] MEDS: Aspirin Enteric Coated 81 MG TABLET.DR PO (09:13)
[2025-04-10] MEDS: METFORMIN PO (09:13)
[2025-04-10] MEDS: Ferrous Sulfate 324 MG TABLET.DR PO (09:13)
[2025-04-10] MEDS: Calcium + Vitamin D 250 MG TABLET 500 MG PO (09:13)
[2025-04-10] MEDS: LINAGLIPTIN PO (09:13)
[2025-04-10] MEDS: Potassium Chloride Packet 20 MEQ PACKET 40 MEQ PO (09:13)
[2025-04-10] MEDS: 0.9 % Sodium Chloride Flush 3 ML SYRINGE IVFLUSH ×3 (09:13→22:45)
[2025-04-10 11:38] LABS: Glucose, Whole Blood 113 mg/dL (60-115)
--- NOTE | 2025-04-10 11:38 | MHC.SL.SWA ---
Speech Pathologist Impression: Mild oral phase dysphagia, unable to self-monitor pace Risk of Aspiration Due to: Advanced dementia Dysphasia Diet Status: Recommend downgrade to NDD1 with THIN liquids, pills crushed in puree, 1-1 feeding. Liquid Consistency and Strategies for Safe Swallow: Liquid Intake Recommendation: Thin Liquid Intake Strategies: Small Sips Solid Food Consistency: Dietary Recommendations: Pureed (NDD1) Additional Modifications to Solid Foods: Patient requires one to one feeding. Alternate liquids and solids. Liquids by controlled cup sip, no straws. Oral Medication Intake: Whole with Puree Please contact the pharmacy regarding appropriate crushable or liquid drug formulations that are available whenever modified delivery is recommended. Compensatory Strategies and Precautions to be Taken for Safe Swallow: Sitting Upright (90 deg) Small Bites and Sips Alternate Liquids/Solids Rate of Ingestion Change Supervision While Eating and Drinking for Safe Swallow: Total Assistance (1:1) Foods to Avoid: Swallowing Recommended Treatments: Compens. Strategy Educat. Recommendation for Speech: Inpatient Speech Therapy Comment: 04/10 Pt seen for dysphagia treatment. Pt alert, responding to [place]ian speaker with good eye contact, pleasant facial expression, and occasional verbalizations. Pt able to feed herself by holding cups and container/spoon. Pt intake is rapid, and she experiences anterior loss with purees. Pt tolerated thins by cup sip and tsps of puree without overt s/s of aspiration. Pt is edentulous and exhibits mildly dyscoordinated oral phase manipulation of bolus. RN consulted d/t question of tachycardia, RN confirmed monitor was misreading HR. Recc downgrade to NDD1 with thins. PULPWOOD BUYER continues to follow. Frequency/Duration: Daily M-F Date Range for Service Req: Timeline to reassess: Taker Out Clinican/Clinical Fellow: No Supervisory Statement: I have reviewed and agree with the student/clinical fellow's documentation: N/A Speech Language Pathologist: Lou Man M.S., CCC-PULPWOOD BUYER
[2025-04-10] MEDS: Furosemide 20 MG/2 ML VIAL IVPUSH (11:50)
--- NOTE | 2025-04-10 14:15 | HO.PM.IMPN ---
Subjective Subjective Date of Service: 04/10/25 Interval History: Pleasantly confused at bedside. No new complaints. No acute distress. Patient has been eating and drinking well. Reports urinating and stooling well. Physical Exam Exam: Exam: General: A&O x3, oriented to time place person and situation, comfortable, no pain Cardiac: S1, S2 auscultated with no S3/4, no MRG. Well perfused. Respiratory: Decreased breath sounds bibasilarly with crepitations auscultated to the mid zones. Upper zones are clear. On 2 L NC GI/ : No abdominal pain on palpation, no masses or distentions. MSK: Normal ambulation without pain at bony prominences or musculature Neurological: Normal neurological examination on overview, without obvious CN II-XII abnormalities. Vital Signs: Vital Signs: Last Vital Signs Temp 98.9 F 04/10/25 12:00 Pulse 72 04/10/25 12:00 Resp 20 04/10/25 12:00 BP 131/63 04/10/25 13:27 Pulse Ox 99 04/10/25 12:00 O2 Del Method Nasal Cannula 04/10/25 12:00 O2 Flow Rate 2 04/10/25 12:00 BMI result Body Mass Index 19.8 Objective Data Active Medications Acetaminophen (Acetaminophen 325 Mg Tablet) 650 mg PO Q6H PRN PRN Reason: Pain, Mild 1-3,fever,headache Last Admin: 04/08/25 14:59 Dose: 650 mg Documented By: NABIL Albuterol/Ipratropium (Albuterol/Iprat 2.5/0.5mg 3 Ml Ampul.Neb) 3 ml INHALE Q4H PRN PRN Reason: Shortness of Breath/Wheezing Last Admin: 04/09/25 18:20 Dose: 3 ml Documented By: RUBEN Aspirin (Aspirin Enteric Coated 81 Mg Tablet.) 81 mg PO DAILY [facility] Last Admin: 04/10/25 09:13 Dose: 81 mg Documented By: JOSEFA Atorvastatin Calcium (Atorvastatin Calcium 20 Mg Tablet) 20 mg PO DAILY [facility] Last Admin: 04/10/25 09:13 Dose: 20 mg Documented By: JOSEFA Calcium Carbonate (Calcium Carbonate 750 Mg Tab.Chew) 750 mg PO Q4H PRN PRN Reason: Heartburn Calcium Carbonate/Cholecalciferol (Calcium + Vitamin D 250 Mg Tablet) 500 mg PO DAILY [facility] Last Admin: 04/10/25 09:13 Dose: 500 mg Documented By: JOSEFA Ceftriaxone Sodium (Ceftriaxone Sodium 1 Gm Vial) 1 gm IVPUSH Q24H [facility] Stop: 04/13/25 13:59 Last Admin: 04/09/25 15:45 Dose: 1 gm Documented By: JOSEFA Dextrose (Dextrose 50 % 25 Gm/50 Ml Syringe) 25 gm IVPUSH Q15M PRN; Protocol PRN Reason: per Hypoglycemia Standing Ord. Enoxaparin Sodium (Enoxaparin Sodium 40 Mg/0.4 Ml Syringe) 40 mg SUBCUT Q24H [facility] Last Admin: 04/09/25 18:12 Dose: 40 mg Documented By: JOSEFA Ferrous Sulfate (Ferrous Sulfate 324 Mg Tablet.Dr) 324 mg PO DAILY [facility] Last Admin: 04/10/25 09:13 Dose: 324 mg Documented By: JOSEFA Glucose (Glucose Gel 15 Gm Gel..Gram.) 15 gm PO Q15M PRN; Protocol PRN Reason: per Hypoglycemia Standing Ord. Sodium Chloride (Ns) 1,000 mls @ 75 mls/hr IVCONT .[id number] [facility] Last Admin: 04/10/25 11:00 Dose: 75 mls/hr Documented By: JOSEFA Insulin Glargine (Insulin Glargine,Hum.Rec.Anlog 100 Unit/Ml 10 Ml Vial) 5 unit SUBCUT BEDTIME [facility] Last Admin: 04/09/25 21:39 Dose: 5 unit Documented By: LILIANA Insulin Human Lispro (Insulin Lispro 100 Unit/Ml 3 Ml Vial) 0 unit SUBCUT QIDACHS [facility]; Protocol Last Admin: 04/10/25 11:47 Dose: Not Given Documented By: JOSEFA Non-Admin Reason: No Insulin Coverage Lactic Acid (Ammonium Lactate 12 % Lotion 226 Gm Bottle) 1 appl TOPICAL DAILY PRN; Protocol PRN Reason: Dry Skin Latanoprost (Latanoprost 0.005 % Ophth Bree 2.5 Ml Drops) 1 drop EYE-BOTH BEDTIME [facility] Last Admin: 04/09/25 21:49 Dose: Not Given Documented By: LILIANA Non-Admin Reason: Med Not Available Magnesium Hydroxide (Milk Of Magnesia 30 Ml Oral.Susp) 30 ml PO DAILY PRN PRN Reason: Constipation Melatonin (Melatonin 3 Mg Tablet) 6 mg PO BEDTIME PRN PRN Reason: Insomnia Pt Own (Linagliptin- Metformin [ Jentadueto Xr] 5-1, 000 Mg Tablet, Ir - Er 1 tab PO DAILY [facility] Last Admin: 04/10/25 09:13 Dose: 1 tab Documented By: JOSEFA Ondansetron HCl (Ondansetron Hcl 4 Mg/2 Ml Vial) 4 mg IVPUSH Q8H PRN PRN Reason: Nausea and Vomiting Polyethylene Glycol (Polyethylene Glycol 3350 17 Gm Powd.Pack) 17 gm PO DAILY PRN PRN Reason: Constipation Propranolol HCl (Propranolol Hcl 20 Mg Tablet) 20 mg PO BID [facility]; Protocol Last Admin: 04/10/25 09:13 Dose: 20 mg Documented By: JSOEFA Senna (Sennosides 8.6 Mg Tablet) 17.2 mg PO BEDTIME [facility] Last Admin: 04/09/25 21:37 Dose: 17.2 mg Documented By: LILIANA Sodium Chloride (0.9 % Sodium Chloride Flush 3 Ml Syringe) 3 ml IVFLUSH QSHIFT [facility] Last Admin: 04/10/25 09:13 Dose: 3 ml Documented By: JOSEFA Labs 04/08/25 20:56 04/10/25 07:28 Labs: Laboratory Results - last 24 hr 04/08/25 04/09/25 04/09/25 04:51 16:00 20:51 Hold Purple Top Anion Gap Estim Creat Clear Calc Estimated GFR POC Glucose 125 H 189 H Random Glucose Calcium Total Creatine Kinase Thyroglobulin 61.0 H Thyroglobulin Antibody <1 04/10/25 04/10/25 04/10/25 07:13 07:27 07:28 Hold Purple Top SEE NOTE Anion Gap 13 Estim Creat Clear Calc 67.6 Estimated GFR > 60 POC Glucose 80 Random Glucose 81 Calcium 7.7 L Total Creatine Kinase 552 H Thyroglobulin Thyroglobulin Antibody 04/10/25 11:17 Hold Purple Top Anion Gap Estim Creat Clear Calc Estimated GFR POC Glucose 113 Random Glucose Calcium Total Creatine Kinase Thyroglobulin Thyroglobulin Antibody Microbiology Microbiology Results: Microbiology 04/07/25 14:54 Blood Culture - Preliminary Blood - Venous No growth after 48 hours. 04/07/25 14:54 Blood Culture - Preliminary Blood - Venous No growth after 48 hours. Assessment and Plan (1) Elevated troponin: Status: Acute (2) Subclinical hyperthyroidism: Status: Acute (3) Rhabdomyolysis: Status: Acute (4) CVA (cerebral vascular accident): Status: Acute (5) Acute exacerbation of CHF (congestive heart failure): Status: Acute Plan 74-year-old Filipino-speaking female, background history of type 2 diabetes mellitus, hypertension, hyperlipidemia, idea, dementia, CVA with residual deficit, former smoker, previous alcohol use disorder, presents to the ED after unwitnessed fall at home, admitted with rhabdomyolysis, admission complicated by acute mild CHF exacerbation. Rhabdomyolysis s/p unwitnessed fall Frequent falls at home. CT head and Spine negative X-ray hip and femur negative for fracture Creatinine has been stable. CK has been down trending. Elevated troponin, suspected secondary to demand NSTEMI Significantly improving CK. PLAN - daily BMP - daily CK - IVF infusion 75 cc/hour NaCl 0.9%; discontinue tomorrow and encourage p.o. - monitor for evidence of volume overload - PT/OT/case management evaluation Acute CHF exacerbation Mild. Placed on 2 L NC. Auscultation revealed crepitations at the bases Chest x-ray revealing mild congestion and pulmonary vasculature. PLAN - furosemide 40 mg IV once - intake/output q.6 hourly - continue Na Cl infusion discontinued tomorrow - cardiac telemetry Elevated troponin - demand NSTEMI Trend troponins Telemetry No ischemic changes on ECG Prolonged Qtc MG 1.6, 2 gms given, daily MG Home meds reviewd, pt is not on any QT prolonging medications at this time Telemetry HX CVA dependent for all apsects of care (ADLs/IADLs) Dementia with behaviors No active delirium CM consulted as pt has had numerous falls at home Pt's nephew is also DIRECTOR OF STUDENT FINANCIAL SERVICES High Fall Risk Edentulous, low wt -ST eval and splicing machine operator automatic consulted DMII SSI Diabetic diet Check A1C in AM Hx of using Lantus short duration to be eligible for cataract surgery, may need to evaluate need for insulin regularly Subclinical Hyperthyroidism No evidence of thyroid storm CARLOS Continue Iron once med rec completed QUALITY METRICS - VTE: Enoxaparin - CODE STATUS: Full code - DIET: Diabetic Quality Stroke Does the patient have a stroke diagnosis?: No Reason for No Anti-thrombotic by Day Two: N/A - Med Ordered VTE Prior VTE?: No VTE Risk Level:: Medical - moderate - high VTE Device Contraindication: N/A - Device Ordered VTE Drug Contraindication: N/A - Med Ordered
[2025-04-10 16:29] LABS: Glucose, Whole Blood 135 mg/dL (60-115)
--- NOTE | 2025-04-10 17:00 | CA_ITS ---
Transthoracic Echocardiogram Patient (Last, First, Middle): Kathy Ribera, Gender: Female Date of : 1950 Age: 74 Procedure Date: 04/10/2025 Procedure Type: Transthoracic Echocardiogram Location: [facility] [place] Height: 152.4 cm Weight: 45.81 kg BSA: 1.40 m2 Heart Rate: bpm BP: 131 / 63 mmHg Fire Prevention Inspector: TO/RC Referring MD: Erick Odom MD Environmental Health Physician: Pa Boss MD Symptoms: Type 2 demand NSTEMI, acute CHF exacerbation Study Quality: Fair/Contrast ECG Rhythm: Sinus Conclusions: - 1. Normal LV ejection fraction 55-60% with grade 3 diastolic dysfunction next 2. At least mildly dilated left atrium 3. Bnrn-ia-lpptwlla mitral regurgitation 4. Normal measured RV systolic pressure with mildly elevated right atrial pressures 5. Small pericardial effusion without tamponade Findings Procedure Information Contrast agent, definity, is being given per protocol without apparent complications. Left Ventricle Normal left ventricular size, thickness, and systolic function. The visually estimated ejection fraction is between 55-60%. Spectral Doppler is indicative of a restrictive filling pattern. E/E prime ratio is >15, consistent with elevated filling pressures. Evidence suggests grade III (severe) diastolic dysfunction. Right Ventricle The right ventricle was not well visualized. Atria The left atrium is mildly dilated. Interatrial shunt cannot be excluded. The right atrium was not well visualized. Aortic Valve There is mild thickening of the aortic valve. There is no aortic valve stenosis. There is no aortic valve regurgitation. Mitral Valve There is mild anterior and posterior mitral leaflet thickening. There is mild to moderate mitral valve regurgitation. There is no mitral valve stenosis. Pulmonic Valve The pulmonic valve is likely normal. Tricuspid Valve Normal tricuspid valve structure. There is mild tricuspid valve regurgitation. The right ventricular systolic pressure is normal. The right ventricular systolic pressure is 28 mmHg. Mildly elevated right atrial pressure. There is no evidence of pulmonary hypertension. Great Vessels All visible segments of the aorta are normal in size. The pulmonary artery was not well visualized. Venous The inferior vena cava is normal in size and collapses less than 50% with inspiration. Pericardium/Pleural There is a small circumferential pericardial effusion. Prior Study Comparison No prior study available for comparison. Measurements 2D Linear Measurements IVSd: 0.79 0.6-0.9/0.6-1.0 cm LVIDd: 3.70 3.9-5.3/4.2-5.9 cm LVIDd Index: 2.64 2.4-3.2/2.2-3.1 cm/m2 LVIDs: 2.75 2.0-3.6 cm LVPWd: 0.80 0.7-1.1 cm LA Diam: 3.00 2.7-3.8/3.0-4.0 cm LAIDs Index: 2.14 1.5-2.3 cm/m2 LV Mass: 101.28 67-162/88-224 g LV Mass Index: 72.34 43-95/49-115 g/m2 LVOT Diam: 1.80 3.0+(-)1.3 cm 2D Systolic Function EF 4C: 56.20 >55% EF 2C: 57.50 >55% EF BiP: 58.00 >55% Mitral Valve MV Pk E: 1.06 MV PK A: 0.45 MV Decel Time: 226.00 E/A: 2.40 E'Lateral: 5.00 E'Medial: 4.13 E/E' Med: 25.70 E/E' Lat: 21.20 PHT: 66.00 MVA PHT: 3.33 Decel [place]: 4.70 Aortic Valve AoV Pk Wallace: 1.85 AoV Mn Wallace: 1.13 AoV VTI: 0.37 AoV Pk Grad: 14.00 Aov Mn Grad: 6.00 MARCOS Cont.VTI: 1.20 LVOT LVOT Pk Wallace: 0.80 LVOT Mn Wallace: 0.51 LVOT VTI: 0.17 LVOT Pk Grad: 3.00 LVOT Mn Grad: 1.00 LVOT Diam: 1.80 LVOT Area: 2.54 Diastolic Function MV Pk E: 1.06 MV Pk A: 0.45 E/A: 2.40 E'Medial: 4.13 E/E' Med: 25.70 E' Laterial: 5.00 E/E' Lat: 21.20 Right Ventricle TAPSE (mm): 12.60 TVS' Wallace: 8.49 Tricuspid Valve TR Pk Wallace: 2.25 TR Pk Grad: 20.00 RA Press: 8.00 RVSP: 28.00 Great Vessels Aorta Sinus of Valsalva: 2.95 2.0-3.5 cm Ao Asc: 3.00 2.1-3.4 cm Updated in Other Vendor System with Status of Final Pa Boss MD electronically signed on 04/10/2025 4:35:14 PM with status of Final
[2025-04-10 20:55] LABS: Glucose, Whole Blood 190 mg/dL (60-115)
[2025-04-10] MEDS: Insulin Glargine,Hum.rec.anlog 100 UNIT/ML 10 ML VIAL SUBCUT (22:40)
[2025-04-11] VITALS: BP 108/59; PULSE 69; RESP 18; TEMP 36.7; O2SAT 93
[2025-04-11 03:43] VITALS: BP 109/55; PULSE 67; RESP 16; TEMP 36.7; O2SAT 93
[2025-04-11 06:55] LABS: Anion Gap 13 (12-20); Blood Urea Nitrogen 7 mg/dL (9-16); Calcium 7.6 mg/dL (8.4-10.2); Carbon Dioxide 24 mmol/L (22-29); Chloride 111 mmol/L (96-108); Creatinine Clr Calc Pharmacy 70.2; Estimated Glomerular Filt Rate > 60; Potassium 3.7 mmol/L (3.3-5.1); Sodium 144 mmol/L (135-145)
[2025-04-11 07:10] VITALS: BP 143/79; PULSE 82; RESP 17; TEMP 36.2; O2SAT 93
[2025-04-11 07:33] LABS: Glucose, Whole Blood 102 mg/dL (60-115)
[2025-04-11] MEDS: Aspirin Enteric Coated 81 MG TABLET.DR PO (08:50)
[2025-04-11] MEDS: LINAGLIPTIN PO (08:51)
[2025-04-11] MEDS: Ferrous Sulfate 324 MG TABLET.DR PO (08:51)
[2025-04-11] MEDS: METFORMIN PO (08:51)
[2025-04-11] MEDS: Calcium + Vitamin D 250 MG TABLET 500 MG PO (08:51)
[2025-04-11] MEDS: 0.9 % Sodium Chloride Flush 3 ML SYRINGE IVFLUSH ×2 (09:11→17:01)
--- NOTE | 2025-04-11 10:33 | MHC.CM.PN ---
CM spoke to pt.'s nephew, Adalberto today on the phone with a dealer sales rep. CM asked if pt. has enough assistance at home and if nephew (healthcare administrator) is good with her going back home, likely tomorrow, and he said yes, she has enough help at home. Transport home with be by ambulance, anticipate DC tomorrow.
[2025-04-11 11:57] LABS: Glucose, Whole Blood 168 mg/dL (60-115)
[2025-04-11 12:00] VITALS: BP 133/61; PULSE 76; RESP 18; TEMP 36.2; O2SAT 94
--- NOTE | 2025-04-11 12:32 | MHC.SL.SWA ---
Speech Pathologist Impression: Risk of Aspiration Due to: Dysphasia Diet Status: Recommend UPGRADE diet to Ground/Mechanical (NDD2) continue on Thin Liquids, by controlled cup sip, no straws, pills crushed in puree. Patient continues to require 1-1 feeding. Liquid Consistency and Strategies for Safe Swallow: Liquid Intake Recommendation: Thin Liquid Intake Strategies: Small Sips No Straws Solid Food Consistency: Dietary Recommendations: Grnd/Mech Altered (NDD2) Additional Modifications to Solid Foods: Patient requires one to one feeding. Alternate liquids and solids. Liquids by controlled cup sip, no straws. Oral Medication Intake: Crushed with Puree Please contact the pharmacy regarding appropriate crushable or liquid drug formulations that are available whenever modified delivery is recommended. Compensatory Strategies and Precautions to be Taken for Safe Swallow: Sitting Upright (90 deg) Small Bites and Sips Alternate Liquids/Solids Rate of Ingestion Change Supervision While Eating and Drinking for Safe Swallow: Total Assistance (1:1) Foods to Avoid: Swallowing Recommended Treatments: Compens. Strategy Educat. Recommendation for Speech: Inpatient Speech Therapy Comment: Patient seen post lunch with tray still present in room, to re-assess/treat dysphagia. Son was present, patient had eaten some of the purees on tray, but then declined more. BOILER CONTROL ROOM OPERATOR yesterday had downgraded diet to puree. Diet at baseline as described by family is consistent with minced and moist, though with more typical foods of the home. Son inquired why his mom now was getting only puree. Patient was awake and alert, took trials of softened cracker in banana puree. Patient noted to initially suck on the cracker, then munch with gums, followed by timely swallow, no clinical signs of aspiration, pocketing, oral residual noted. Patient took several more tsps of this consistency with similar response. Patient was very pleasant and cooperative throughout. Recommend UPGRADE diet to Ground/Mechanical (NDD2) continue on Thin Liquids, by controlled cup sip, no straws, pills crushed in puree. Patient continues to require 1-1 feeding. Frequency/Duration: Daily M-F Date Range for Service Req: Timeline to reassess: Modeler Clinican/Clinical Fellow: No Supervisory Statement: I have reviewed and agree with the student/clinical fellow's documentation: N/A Speech Language Pathologist: Leigh Mcgill M.A., CCC-BOILER CONTROL ROOM OPERATOR
--- NOTE | 2025-04-11 14:20 | P.PNIM_ITS ---
Subjective Subjective Date of Service: 04/11/25 Interval History: Patient seen by bedside today with son. The patient has no new complaints today. The patient remains pleasantly demented. She denies any new or acute issues Reports significant improvement in left hip pain Physical Exam 2 Exam: Exam: General: A&O x3, oriented to time place person and situation, comfortable, no pain Cardiac: S1, S2 auscultated with no S3/4, no MRG. Well perfused. Respiratory: Decreased breath sounds bibasilar - significantly improved overall. Upper and mid zones are clear. On room air. No respiratory distress GI/ : No abdominal pain on palpation, no masses or distentions. MSK: Normal ambulation without pain at bony prominences or musculature Neurological: Normal neurological examination on overview, without obvious CN II-XII abnormalities. Vital Signs: Vital Signs: Last Vital Signs Temp 97.1 F 04/11/25 12:00 Pulse 76 04/11/25 12:00 Resp 18 04/11/25 12:00 BP 133/61 04/11/25 12:00 Pulse Ox 94 04/11/25 12:00 O2 Del Method Room Air 04/11/25 12:00 O2 Flow Rate 1 04/10/25 15:58 BMI result Body Mass Index 19.8 Objective Data Active Medications Acetaminophen (Acetaminophen 325 Mg Tablet) 650 mg PO Q6H PRN PRN Reason: Pain, Mild 1-3,fever,headache Last Admin: 04/08/25 14:59 Dose: 650 mg Documented By: NABIL Albuterol/Ipratropium (Albuterol/Iprat 2.5/0.5mg 3 Ml Ampul.Neb) 3 ml INHALE Q4H PRN PRN Reason: Shortness of Breath/Wheezing Last Admin: 04/09/25 18:20 Dose: 3 ml Documented By: RUBEN Aspirin (Aspirin Enteric Coated 81 Mg Tablet.) 81 mg PO DAILY [facility] Last Admin: 04/11/25 08:50 Dose: 81 mg Documented By: LONNY Atorvastatin Calcium (Atorvastatin Calcium 20 Mg Tablet) 20 mg PO DAILY [facility] Last Admin: 04/11/25 08:51 Dose: 20 mg Documented By: LONNY Calcium Carbonate (Calcium Carbonate 750 Mg Tab.Chew) 750 mg PO Q4H PRN PRN Reason: Heartburn Calcium Carbonate/Cholecalciferol (Calcium + Vitamin D 250 Mg Tablet) 500 mg PO DAILY [facility] Last Admin: 04/11/25 08:51 Dose: 500 mg Documented By: LONNY Ceftriaxone Sodium (Ceftriaxone Sodium 1 Gm Vial) 1 gm IVPUSH Q24H [facility] Stop: 04/13/25 13:59 Last Admin: 04/10/25 14:48 Dose: 1 gm Documented By: JOSEFA Dextrose (Dextrose 50 % 25 Gm/50 Ml Syringe) 25 gm IVPUSH Q15M PRN; Protocol PRN Reason: per Hypoglycemia Standing Ord. Enoxaparin Sodium (Enoxaparin Sodium 40 Mg/0.4 Ml Syringe) 40 mg SUBCUT Q24H [facility] Last Admin: 04/10/25 14:48 Dose: 40 mg Documented By: JOSEFA Ferrous Sulfate (Ferrous Sulfate 324 Mg Tablet.Dr) 324 mg PO DAILY [facility] Last Admin: 04/11/25 08:51 Dose: 324 mg Documented By: LONNY Glucose (Glucose Gel 15 Gm Gel..Gram.) 15 gm PO Q15M PRN; Protocol PRN Reason: per Hypoglycemia Standing Ord. Sodium Chloride (Ns) 1,000 mls @ 75 mls/hr IVCONT .[id number] [facility] Last Infusion: 04/11/25 11:38 Dose: Infused Documented By: LONNY Insulin Glargine (Insulin Glargine,Hum.Rec.Anlog 100 Unit/Ml 10 Ml Vial) 5 unit SUBCUT BEDTIME [facility] Last Admin: 04/10/25 22:40 Dose: 5 unit Documented By: ROSINA Insulin Human Lispro (Insulin Lispro 100 Unit/Ml 3 Ml Vial) 0 unit SUBCUT QIDACHS [facility]; Protocol Last Admin: 04/11/25 12:08 Dose: 2 unit Documented By: LONNY Lactic Acid (Ammonium Lactate 12 % Lotion 226 Gm Bottle) 1 appl TOPICAL DAILY PRN; Protocol PRN Reason: Dry Skin Latanoprost (Latanoprost 0.005 % Ophth Bree 2.5 Ml Drops) 1 drop EYE-BOTH BEDTIME [facility] Last Admin: 04/10/25 22:51 Dose: Not Given Documented By: ROSINA Non-Admin Reason: Med Not Available Magnesium Hydroxide (Milk Of Magnesia 30 Ml Oral.Susp) 30 ml PO DAILY PRN PRN Reason: Constipation Melatonin (Melatonin 3 Mg Tablet) 6 mg PO BEDTIME PRN PRN Reason: Insomnia Pt Own (Linagliptin- Metformin [ Jentadueto Xr] 5-1, 000 Mg Tablet, Ir - Er 1 tab PO DAILY [facility] Last Admin: 04/11/25 08:51 Dose: 1 tab Documented By: LONNY Ondansetron HCl (Ondansetron Hcl 4 Mg/2 Ml Vial) 4 mg IVPUSH Q8H PRN PRN Reason: Nausea and Vomiting Polyethylene Glycol (Polyethylene Glycol 3350 17 Gm Powd.Pack) 17 gm PO DAILY PRN PRN Reason: Constipation Propranolol HCl (Propranolol Hcl 20 Mg Tablet) 20 mg PO BID [facility]; Protocol Last Admin: 04/11/25 08:51 Dose: 20 mg Documented By: LONNY Senna (Sennosides 8.6 Mg Tablet) 17.2 mg PO BEDTIME [facility] Last Admin: 04/10/25 22:41 Dose: 17.2 mg Documented By: ROSINA Sodium Chloride (0.9 % Sodium Chloride Flush 3 Ml Syringe) 3 ml IVFLUSH QSHIFT [facility] Last Admin: 04/11/25 09:11 Dose: 3 ml Documented By: LONNY Labs 04/08/25 20:56 04/11/25 05:54 Labs: Laboratory Results - last 24 hr 04/10/25 04/10/25 04/11/25 16:21 20:34 05:54 Hold Purple Top SEE NOTE Anion Gap 13 Estim Creat Clear Calc 70.2 Estimated GFR > 60 POC Glucose 135 H 190 H Random Glucose 88 Calcium 7.6 L Total Creatine Kinase 317 H 04/11/25 04/11/25 07:29 11:43 Hold Purple Top Anion Gap Estim Creat Clear Calc Estimated GFR POC Glucose 102 168 H Random Glucose Calcium Total Creatine Kinase Assessment and Plan (1) Acute exacerbation of CHF (congestive heart failure): Status: Acute (2) Rhabdomyolysis: Status: Acute Plan 74-year-old [place] Leonean-speaking female, background history of type 2 diabetes mellitus, hypertension, hyperlipidemia, idea, dementia, CVA with residual deficit, former smoker, previous alcohol use disorder, presents to the ED after unwitnessed fall at home, admitted with rhabdomyolysis, admission complicated by acute mild CHF exacerbation. Rhabdomyolysis s/p unwitnessed fall - RESOLVED Frequent falls at home. CT head and Spine negative X-ray hip and femur negative for fracture Creatinine has been stable. CK has been down trending. Elevated troponin, suspected secondary to demand NSTEMI Significantly improving CK - back to baseline. PLAN - daily BMP - daily CK - IVF discontinued - monitor for evidence of volume overload - PT/OT/case management evaluation Acute CHF exacerbation - RESOLVED Mild. Placed on 2 L NC. Auscultation revealed crepitations at the bases Chest x-ray revealing mild congestion and pulmonary vasculature. Patient diuresed with furosemide 40 mg IV od. Currently euvolemic PLAN - intake/output q.6 hourly - cardiac telemetry Elevated troponin - demand NSTEMI Trend troponins Telemetry No ischemic changes on ECG Prolonged Qtc MG 1.6, 2 gms given, daily MG Home meds reviewd, pt is not on any QT prolonging medications at this time Telemetry HX CVA dependent for all apsects of care (ADLs/IADLs) Dementia with behaviors No active delirium CM consulted as pt has had numerous falls at home Pt's nephew is also TRACK LINER OPERATOR High Fall Risk Edentulous, low wt -ST eval and shotblast operator consulted DMII SSI Diabetic diet Check A1C in AM Hx of using Lantus short duration to be eligible for cataract surgery, may need to evaluate need for insulin regularly Subclinical Hyperthyroidism No evidence of thyroid storm CARLOS Continue Iron once med rec completed QUALITY METRICS - VTE: Enoxaparin - CODE STATUS: Full code - DIET: Diabetic - DISPOSITION: DISCHARGE TOMORROW Total time managing care of this patient today: 35 minutes. Quality Stroke Does the patient have a stroke diagnosis?: No Reason for No Anti-thrombotic by Day Two: N/A - Med Ordered VTE Prior VTE?: No VTE Risk Level:: Medical - moderate - high VTE Device Contraindication: N/A - Device Ordered VTE Drug Contraindication: N/A - Med Ordered
[2025-04-11 16:00] VITALS: BP 164/72; PULSE 79; RESP 18; TEMP 36.4; O2SAT 95
[2025-04-11 17:20] LABS: Glucose, Whole Blood 178 mg/dL (60-115)
[2025-04-11 20:00] VITALS: BP 182/75; PULSE 83; RESP 20; TEMP 37.2; O2SAT 97
[2025-04-11 20:43] LABS: Glucose, Whole Blood 209 mg/dL (60-115)
[2025-04-11] MEDS: Insulin Glargine,Hum.rec.anlog 100 UNIT/ML 10 ML VIAL SUBCUT (20:46)
[2025-04-12 00:14] VITALS: BP 145/68; PULSE 77; RESP 20; TEMP 36.8; O2SAT 96
[2025-04-12 03:58] VITALS: BP 151/72; PULSE 76; RESP 20; TEMP 36.5; O2SAT 97
[2025-04-12] MEDS: 0.9 % Sodium Chloride Flush 3 ML SYRINGE IVFLUSH ×3 (05:12→15:46)
[2025-04-12 07:19] VITALS: BP 150/67; PULSE 80; RESP 17; TEMP 36.2; O2SAT 97
[2025-04-12 07:40] LABS: Glucose, Whole Blood 94 mg/dL (60-115)
[2025-04-12] MEDS: Ferrous Sulfate 324 MG TABLET.DR PO (08:52)
[2025-04-12] MEDS: Calcium + Vitamin D 250 MG TABLET 500 MG PO (08:52)
[2025-04-12] MEDS: Aspirin Enteric Coated 81 MG TABLET.DR PO (08:52)
[2025-04-12] MEDS: LINAGLIPTIN PO (08:56)
[2025-04-12] MEDS: METFORMIN PO (08:56)
[2025-04-12 09:29] LABS: Anion Gap 13 (12-20); Blood Urea Nitrogen 7 mg/dL (9-16); Calcium 8.3 mg/dL (8.4-10.2); Carbon Dioxide 24 mmol/L (22-29); Chloride 109 mmol/L (96-108); Creatinine Clr Calc Pharmacy 81.1; Estimated Glomerular Filt Rate > 60; Potassium 3.9 mmol/L (3.3-5.1); Sodium 142 mmol/L (135-145)
[2025-04-12 10:43] LABS: Anion Gap 12 (12-20); Blood Urea Nitrogen 7 mg/dL (9-16); Calcium 8.2 mg/dL (8.4-10.2); Carbon Dioxide 26 mmol/L (22-29); Chloride 108 mmol/L (96-108); Creatinine Clr Calc Pharmacy 84.9; Estimated Glomerular Filt Rate > 60; Potassium 3.3 mmol/L (3.3-5.1); Sodium 143 mmol/L (135-145)
[2025-04-12 11:13] VITALS: BP 148/82; PULSE 86; RESP 18; TEMP 36.2; O2SAT 96
[2025-04-12 11:34] LABS: Glucose, Whole Blood 106 mg/dL (60-115)
--- NOTE | 2025-04-12 12:28 | MHC.SL.SWA ---
Speech Pathologist Impression:Risk of Aspiration, Oral Phase Dysphagia Risk of Aspiration Due to: Reduced Cognition Dysphasia Diet Status: Recommend CONTINUE diet of Ground/Mechanical (NDD2) and Thin Liquids, by controlled cup sip, no straws, pills crushed in puree. Patient continues to require 1-1 feeding. Liquid Consistency and Strategies for Safe Swallow: Liquid Intake Recommendation: Thin Liquid Intake Strategies: Small Sips No Straws Solid Food Consistency: Dietary Recommendations: Grnd/Mech Altered (NDD2) Additional Modifications to Solid Foods: Patient requires one to one feeding. Alternate liquids and solids. Liquids by controlled cup sip, no straws. Oral Medication Intake: Crushed with Puree Please contact the pharmacy regarding appropriate crushable or liquid drug formulations that are available whenever modified delivery is recommended. Compensatory Strategies and Precautions to be Taken for Safe Swallow: Sitting Upright (90 deg) Small Bites and Sips Alternate Liquids/Solids Rate of Ingestion Change Supervision While Eating and Drinking for Safe Swallow: Total Assistance (1:1) Swallowing Recommended Treatments: Compens. Strategy Educat. Recommendation for Speech: Inpatient Speech Therapy Comment: Recc NDD1 with thins, meds in puree, 1:1 assistance during meals, aspiration precautions. Frequency/Duration: Daily M-F Date Range for Service Req: Timeline to reassess: [employer] Clinican/Clinical Fellow: No Supervisory Statement: I have reviewed and agree with the student/clinical fellow's documentation: N/A Speech Language Pathologist: Rosa Costa M.A., CCC-[employer] SALES CONSULTANT
--- NOTE | 2025-04-12 12:39 | W.MHC.F2F ---
Service Date Service Date: 04/12/25 Encounter Date of encounter: 04/12/25 Reasons for Services Signs and symptoms assessed: Advanced dementia with repeated falls. Frail female. Reason for detention: medication management Reason for physical therapy: home safety and mobility, gait/transfer training, assess need for DME, ADL training and energy conservation Reason for occupational therapy: home safety and mobility, gait/transfer training, assess need for DME and energy conservation Homebound: Leaving the home is medically contraindicated at this time without the asist of a device and/or another person due th the listed conditions above and below. Reason homebound: unsteady gait / fall risk, leg weakness, poor balance / fall risk, cognitively impaired / unsafe and weakness related to hospital stay Certification: Based on the above findings, I certify that this patient is confined to the home and needs intermittent detention care, physical therapy and/or speech therapy, or continues to need occupational therapy. The patient is under my care, and I have initiated the establishment of the plan of care. The patient will be followed by a physician who will periodically review the plan of care. Time Spent With Patient Time: Total time managing care of this patient today 30 minutes.
--- NOTE | 2025-04-12 15:41 | MHC.CM.PN ---
Addendum entered by Aline Gonzalez 04/12/25 16:05: booking ID # for ambulance ride home: [id number] Original Note: Second IMM 04/12/25, Pt has been medically cleared for DC, she will go home via BLS and have family care and services from [facility].
--- NOTE | 2025-04-12 16:18 | P.DS_ITS ---
DS: Providers Provider Date of Service: 04/07/25 Date of admission: 04/07/25 15:39 Date of discharge: 04/12/25 Primary care physician: Carl Crisostomo MD Consults: 04/07/25 16:22 Consult to Wound Care Routine Reason for consultation: Left arm skin tear Attending physician on discharge: Erick Odom DS: Diagnosis Discharge Diagnosis (1) Acute exacerbation of CHF (congestive heart failure): Status: Acute (2) Rhabdomyolysis: Status: Acute DS: Summary Hospital Course Hospital Course: 74-year-old Slovenian-speaking female, background history of type 2 diabetes mellitus, hypertension, hyperlipidemia, idea, dementia, CVA with residual deficit, former smoker, previous alcohol use disorder, presents to the ED after unwitnessed fall at home, admitted with rhabdomyolysis, admission complicated by acute mild CHF exacerbation. Rhabdomyolysis s/p unwitnessed fall - RESOLVED Frequent falls at home. CT head and Spine negative X-ray hip and femur negative for fracture Creatinine has been stable. CK has been down trending. Elevated troponin, suspected secondary to demand NSTEMI Significantly improving CK - back to baseline. Acute CHF exacerbation - RESOLVED Mild. Placed on 2 L NC. Auscultation revealed crepitations at the bases Chest x-ray revealing mild congestion and pulmonary vasculature. Patient diuresed with furosemide 40 mg IV od. Status at Discharge Overall status at discharge: patient is back to baseline Time Attestation Total time managing care of this patient today: 35 mintues. Discharge Coordination Time (in mins): 30 Quality: Safe Use of Opioids Does Pt have an Active Cancer Diagnosis on the Problem List?: No Quality: Stroke Does the patient have a stroke diagnosis?: No Physical Exam Exam: Exam: Alert to self, able to follow commands stated in frisian Neuro: CN II-X11 intact, no strength noted in BLE's EYES: PERRLA, EOM intact, sclera nonicteric, conjunctiva pink ENT: mildly [place], no issues with swallowing, uvula midline, lips moist, nares patent no epistaxis, edentulous Cardiac: S1 S2 RRR, no murmur, no JVD, no edema in Lower ext Pulmonary: lungs diminished B Abdominal: BS active in all 4 quadrants, no guarding, tenderness, rebounding MSK: strength 3/5 upper extremities, 1/5 BLEs : maria in place draining yellow urine no sediment seen Extremities: no edema in lower extremities, PT and DP pulses palpable +2 Psych: mood stable, judgement and insight poor Vital Signs: Vital Signs: Last Vital Signs Temp 97.1 F 04/12/25 11:13 Pulse 86 04/12/25 11:13 Resp 18 04/12/25 11:13 BP 148/82 H 04/12/25 11:13 Pulse Ox 96 04/12/25 11:13 O2 Del Method Room Air 04/12/25 11:13 O2 Flow Rate 1 04/10/25 15:58 BMI result Body Mass Index 19.8 DS: Data Data Completed and Pending Labs on day of discharge: Laboratory Results - last 24 hr 04/11/25 04/11/25 04/12/25 17:13 20:39 07:16 Hold Purple Top Sodium 143 Potassium 3.3 Chloride 108 Carbon Dioxide 26 Anion Gap 12 BUN 7 L Creatinine 0.43 L Estim Creat Clear Calc 84.9 Estimated GFR > 60 POC Glucose 178 H 209 H Random Glucose 90 Calcium 8.2 L D Total Creatine Kinase 181 H 04/12/25 04/12/25 04/12/25 07:35 09:00 11:26 Hold Purple Top SEE NOTE Sodium 142 Potassium 3.9 Chloride 109 H Carbon Dioxide 24 Anion Gap 13 BUN 7 L Creatinine 0.45 L Estim Creat Clear Calc 81.1 Estimated GFR > 60 POC Glucose 94 106 Random Glucose 105 Calcium 8.3 L Total Creatine Kinase 191 H Preliminary micro results at discharge 04/07/25 14:54 Blood Culture - Preliminary Blood - Venous No growth after 48 hours. 04/07/25 14:54 Blood Culture - Preliminary Blood - Venous No growth after 48 hours. Discharge Plan Discharge Anticipated Discharge Date/Time: 04/12/25 12:33 Patient Disposition: Home, Self-Care Discharge Diagnosis: Acute rhabdomyolysis with acute kidney injury, complicated by acute CHF exacerbation in the setting of iatrogenic fluid replacement Referrals: Carl Rivera MD [Primary Care Provider, Medical] - 1 Week Discharge Medications: Continued latanoprost 0.005 % Drops 1 drp OPHTHALMIC (EYE) BEDTIME insulin glargine [Lantus U-100 Insulin] 100 unit/mL Solution 5 unit SUBCUT BEDTIME ammonium lactate 12 % lotion 1 appl topical DAILY PRN (Reason: Dry Skin) alendronate 70 mg Tablet 70 mg PO TH@0600 aspirin 81 mg Tablet,Delayed Release (Dr/Ec) 81 mg PO DAILY propranolol 20 mg Tablet 20 mg PO BID Jentadueto XR 5-1,000 mg Tablet, Ir - Er, Biphasic 24hr 1 tab PO DAILY atorvastatin 20 mg Tablet 20 mg PO DAILY ferrous sulfate 325 mg (65 mg iron) Tablet 325 mg PO DAILY lisinopril 40 mg Tablet 40 mg PO DAILY calcium carbonate-vitamin D3 600 mg-20 mcg (800 unit) tablet 1 tab PO DAILY Discontinued cefpodoxime 200 mg Tablet 200 mg PO BID Rx Instructions: ordered times 10 days, patient had 6 pills remaining must administer with a meal/food Discharge Orders: Discharge Order (Routine); Ordered 04/12/25 Ordered By: Erick dOom Diet: Advance to usual diet Activity on Discharge: As tolerated Stand Alone Forms: Patient Portal Discharge page Print Language: Slovenian Care Plan Goals: Follow-up primary care within 1 week of discharge Follow up outpatient Cardiology Follow-up outpatient Geriatrics Health Concerns: Repeated falls Dementia Plan of Treatment: As above Assessment: Back to clinical baseline.
== END 2025-04-12 16:30 | disposition home or self-care (01) | DRG 558 ==
LOC: HO.ED 14:31 → HO.EDOVER 15:46 → HO.IMC 04-08 22:42
PROVIDERS: Emergency Medicine; Internal Medicine; Physician Assistant; Admitting Provider Nurse Practitioner Family; Emergency Provider Emergency Medicine; PCP Internal Medicine; Visit Provider Hospitalist
DX: M62.82 Rhabdomyolysis (principal); N39.0 Urinary tract infection, site not specified; F03.918 Unspecified dementia, unspecified severity, with other behavioral disturbance; S51.812A Laceration without foreign body of left forearm, initial encounter; W19.XXXA Unspecified fall, initial encounter; R94.31 Abnormal electrocardiogram [ECG] [EKG]; R29.6 Repeated falls; E78.5 Hyperlipidemia, unspecified; F10.91 Alcohol use, unspecified, in remission; E05.90 Thyrotoxicosis, unspecified without thyrotoxic crisis or storm; D50.9 Iron deficiency anemia, unspecified; I50.9 Heart failure, unspecified; I34.0 Nonrheumatic mitral (valve) insufficiency; I10 Essential (primary) hypertension; R55 Syncope and collapse; E11.9 Type 2 diabetes mellitus without complications; Z74.1 Need for assistance with personal care; Z87.891 Personal history of nicotine dependence; I69.398 Other sequelae of cerebral infarction; Z79.4 Long term (current) use of insulin; Z79.82 Long term (current) use of aspirin; Z79.899 Other long term (current) drug therapy
CPT/HCPCS: 36415; 70450; 71045; 72125; 72170; 73552; 80048; 80053; 81001; 82272; 82550; 82947; 83036; 83605; 83735; 83880; 84432; 84439; 84443; 84484; 85025; 85610; 86800; 86850; 86900; 86901; 87040; 87086; 87493; 87507; 92526; 93005; 93306; 94640; 97162; 99285; J0131; J0696; J1650; J1885; J1938; J3475; Q9957

== ENCOUNTER → 2025-04-07 12:19 | Outpatient (BNV) | payer OTHER, SELFPAY | PROVIDERS: Emergency Provider Emergency Medicine; PCP Internal Medicine; Visit Provider Radiology Diagnostic Radiology | DX: M47.812 Spondylosis without myelopathy or radiculopathy, cervical region (principal); S09.90XA Unspecified injury of head, initial encounter; M25.78 Osteophyte, vertebrae | CPT/HCPCS: 70450; 71045; 72125 ==

== ENCOUNTER → 2025-04-07 12:23 | Outpatient (BNV) | payer OTHER, SELFPAY | PROVIDERS: Admitting Provider Nurse Practitioner Family; Emergency Provider Emergency Medicine; PCP Internal Medicine; Visit Provider Internal Medicine Cardiovascular Disease | DX: I45.10 Unspecified right bundle-branch block (principal); I45.81 Long QT syndrome | CPT/HCPCS: 93010 ==

== ENCOUNTER 2025-04-07 15:39 | Outpatient (BNV) | payer OTHER, SELFPAY | END 2025-04-08 08:00 | PROVIDERS: Admitting Provider Nurse Practitioner Family; Emergency Provider Emergency Medicine; PCP Internal Medicine; Visit Provider Internal Medicine Cardiovascular Disease | DX: I45.10 Unspecified right bundle-branch block (principal); I45.81 Long QT syndrome | CPT/HCPCS: 93010 ==

== ENCOUNTER 2025-04-07 15:39 | Outpatient (BNV) | payer OTHER, SELFPAY | END 2025-04-10 17:00 | PROVIDERS: Admitting Provider Nurse Practitioner Family; Emergency Provider Emergency Medicine; PCP Internal Medicine; Visit Provider Internal Medicine Cardiovascular Disease | DX: I50.30 Unspecified diastolic (congestive) heart failure (principal); I34.0 Nonrheumatic mitral (valve) insufficiency; I31.39 Other pericardial effusion (noninflammatory); I21.4 Non-ST elevation (NSTEMI) myocardial infarction | CPT/HCPCS: 93306 ==

== ENCOUNTER 2025-04-07 15:39 | Outpatient (BNV) | payer OTHER, SELFPAY | END 2025-04-08 13:51 | PROVIDERS: Admitting Provider Nurse Practitioner Family; Emergency Provider Emergency Medicine; PCP Internal Medicine; Visit Provider Radiology Diagnostic Radiology | DX: M25.552 Pain in left hip (principal); M16.11 Unilateral primary osteoarthritis, right hip | CPT/HCPCS: 72170; 73552 ==

== ENCOUNTER 2025-04-07 15:39 | Outpatient (BNV) | payer OTHER, SELFPAY | END 2025-04-09 16:25 | PROVIDERS: Admitting Provider Nurse Practitioner Family; Emergency Provider Emergency Medicine; PCP Internal Medicine; Visit Provider Radiology Diagnostic Radiology | DX: J90 Pleural effusion, not elsewhere classified (principal) | CPT/HCPCS: 71045 ==

== ENCOUNTER → 2025-04-07 15:39 | Outpatient (BNV) | payer OTHER, SELFPAY | PROVIDERS: Admitting Provider Nurse Practitioner Family; Emergency Provider Emergency Medicine; PCP Internal Medicine; Visit Provider Nurse Practitioner Family | DX: M62.82 Rhabdomyolysis (principal) | CPT/HCPCS: 99223 ==

== ENCOUNTER 2025-06-20 16:25 | Inpatient (IN) | payer OTHER, SELFPAY ==
--- NOTE | 2025-06-20 | ECG_ITS ---
Test Reason : AMS Blood Pressure : */* mmHG Vent. Rate : 82 BPM Atrial Rate : 93 BPM P-R Int : 116 ms QRS Dur : 100 ms QT Int : 424 ms P-R-T Axes : 105 45 37 degrees QTcB Int : 495 ms Artifact in tracing Normal sinus rhythm Low voltage QRS Borderline ECG When compared with ECG of 07-Apr-2025 18:19, No significant changes seen Referred By: Blaire Guardado Electronically Signed By: CYRIL TERESA
--- NOTE | ~2025-06-20 | MR_ITS ---
CLINICAL HISTORY: AMS hx of CVA HEAD CT neg, nonverbal MR Brain without gadolinium Comparison: CT/REG/TN/SR - CT HEAD/BRAIN WO IV CON - 06/20/25 18:36 EDT Findings: No restricted diffusion. There is a focus of chronic infarction within the left frontal lobe. No intra-axial mass or acute hemorrhage. Foci of hemosiderin deposition are noted within the left frontal lobe. No midline shift. No hydrocephalus. Vascular flow voids are intact. Orbital contents are unremarkable. Small mucous retention cyst within the left maxillary sinus. Mild partial opacification of the left mastoid air cells. No focal bone lesion. IMPRESSION: No acute abnormality of the brain. This document has been electronically signed by: Tata Lea MD on 06/21/2025 19:29:03
--- NOTE | ~2025-06-20 | CT_ITS ---
CLINICAL HISTORY: ams CT head without contrast Comparison: CT/SR - CT HEAD/BRAIN WO IV CON - 04/07/25 12:59 EDT Findings: No intra-axial mass, midline shift, hydrocephalus, or acute hemorrhage. Age appropriate cerebral volume loss. Patchy low-density within the periventricular and subcortical white matter. The visualized paranasal sinuses and mastoid air cells are normal. The orbits are within normal limits. There is no acute fracture. IMPRESSION: 1. No acute intracranial findings. This document has been electronically signed by: Marilia Smith MD on 06/20/2025 19:41:04
--- NOTE | ~2025-06-20 | XR_ITS ---
CLINICAL HISTORY: ams 1 view chest x-ray Comparison: CR - XR CHEST 1V - 04/09/25 16:54 EDT Findings: No consolidation or effusion. Normal size heart. No acute fracture. IMPRESSION: 1. No acute findings. This document has been electronically signed by: Marilia Smith MD on 06/20/2025 18:26:09
[2025-06-20 16:54] VITALS: BP 152/52; BP 171/83; PULSE 81; PULSE 83; RESP 16; TEMP 36.9; O2SAT 100; O2SAT 99; BMI 24.6
--- NOTE | 2025-06-20 17:17 | ED.GENADULT ---
HPI - General Adult General Chief complaint: Altered Mental Status Stated complaint: confused,altered mental, ?UTI Time Seen by Provider: 06/20/25 17:02 Source: patient Mode of arrival: ambulatory Limitations: no limitations History of Present Illness ED Provider: Dr. Guardado HPI narrative: 75-year-old female history of stroke, hypertension presented hospital today for evaluation of weakness and altered mentation. This has been going on for 2 weeks now. Patient's son and [id number] is at bedside. They stated that patient was then enrolled in hospice with the goal of increasing nursing care at home. However they do not want the patient on comfort measures. Therefore they are not align with the hospice philosophy. They stated at baseline patient is able to have conversation able to talk. The patient was recently diagnosed with a UTI due to her altered mentation was placed on antibiotic. However she is not improving. Therefore they brought patient to the ER for further evaluation. I did discuss code status. They stated that they would like DNR for the patient as this will be aligned with her wishes. Patient appears to be encephalopathic unable to provide any meaningful history. Related Data Home Medications ?Medication ?Instructions ?Recorded ?Confirmed alendronate 70 mg tablet 70 mg PO TH@0600 04/07/25 04/07/25 ammonium lactate 12 % lotion 1 appl topical DAILY PRN Dry Skin 04/07/25 04/07/25 aspirin 81 mg tablet,delayed 81 mg PO DAILY 04/07/25 04/07/25 release atorvastatin 20 mg tablet 20 mg PO DAILY 04/07/25 04/07/25 calcium 600 mg (as 1 tab PO DAILY 04/07/25 04/07/25 carbonate)-vitamin D3 20 mcg (800 unit) tablet ferrous sulfate 325 mg (65 mg 325 mg PO DAILY 04/07/25 04/07/25 iron) tablet insulin glargine 100 unit/mL 5 unit subcut BEDTIME 04/07/25 04/07/25 subcutaneous solution (Lantus U-100 Insulin) latanoprost 0.005 % eye drops 1 drp ophthalmic (eye) BEDTIME 04/07/25 04/07/25 linagliptin 5 mg-metformin ER 1 tab PO DAILY 04/07/25 04/07/25 1,000 mg tablet,extended release 24 hr (Jentadueto XR) lisinopril 40 mg tablet 40 mg PO DAILY 04/07/25 04/07/25 propranolol 20 mg tablet 20 mg PO BID 04/07/25 04/07/25 Allergies Allergy/AdvReac Type Severity Reaction Status Date / Time No Known Allergies Allergy Verified 06/20/25 16:58 Review of Systems Review of Systems: Pertinent review of systems as mentioned in HPI. All other system otherwise negative. [facility] Past Medical History [facility] Narrative: Medical history as mentioned in HPI Medical History (Updated 06/21/25 @ 01:11 by Blaire Guardado DO) CVA (cerebral vascular accident) Hyperlipidemia Glaucoma Cataracts, bilateral Hypertension Diabetes 1.5, managed as type 2 Social History Social History Household Members: Family Housing: House Patient Tobacco Use Status: Tobacco use Unknown Advance Directives: No Advance Directives Information Provided: Yes service: No Physical Exam ED Exam Exam: General: Appears encephalopathic, dry cachectic Head: Normacephalic, atraumatic ENT: oral mucosa dry, neck supple, no tracheal deviation Cardiovascular: regular rate, regular rhythm, no murmurs, rubbing, gallops Respiratory: CTAB, no wheeze, rales, rhonchi Gastrointestinal: Soft, non distended, non tender, non guarding Extremities: No limb pain or swelling, no calf tenderness Neurological: Appears encephalopathic Skin: Warm and dry Vital Signs: Vital Signs - 24 hr 06/20/25 16:54 06/20/25 19:21 06/20/25 22:43 Temperature 98.5 F 98.7 F 98.4 F Pulse Rate 83 90 82 Respiratory Rate 16 15 20 Blood Pressure 152/52 H 156/47 H 157/55 H Pulse Oximetry 99 99 97 Oxygen Delivery Method Room Air Room Air Room Air BMI result Body Mass Index 24.6 Medications Administered Discontinued Medications Generic Name Dose Route Start Last Admin Trade Name Freq PRN Reason Stop Dose Admin Sodium Chloride 1,000 mls @ 500 mls/hr 06/20/25 17:45 06/20/25 20:41 Ns IV 06/20/25 19:44 Infused .Q2H TABITHA Infusion Magnesium Sulfate 2 gm in 50 mls @ 50 mls/hr 06/20/25 19:03 06/20/25 20:41 Magnesium Sulfate/H2o IV 06/20/25 20:02 Infused ONCE ONE Infusion Magnesium Sulfate 2 gm in 50 mls @ 50 mls/hr 06/20/25 21:54 06/20/25 23:00 Magnesium Sulfate/H2o IV 06/20/25 22:53 Infused ONCE ONE Infusion Medical Decision Making Medical Decision Making [facility] Narrative: 75-year-old female presented hospital today for evaluation of altered mentation. After extensive discussion with the family. They will like to pursue aggressive medical treatment at this time. Of note patient has DNR. We will plan to obtain a metabolic workup including a CBC CMP TSH, we will plan to swab patient for COVID influenza UA will be obtained. A bolus IV fluid be initiated for the patient. We will slow trickle this as the patient has history of CHF CT head dry scan will be obtained. Screening EKG will be obtained a screening chest x-ray will be obtained as well. Patient's lab work shows slight anemia 9.6 no sign of leukocytosis, patient's chemistry was significant for low magnesium at 1.2. IV magnesium sulfate will be repleted for the patient. CT head and chest x-ray was negative for any signs of acute abnormality. Review patient's EKG. No signs of STEMI. UA still pending at this time. We will plan to straight cath the patient. We will plan to admit the patient to the hospital for delirium. Differential Diagnosis Differential Diagnoses: The differential diagnosis associated with the presentation includes UTI, dehydration, viral syndrome, pneumonia, electrolyte abnormality, hyponatremia Lab Data [facility] Lab Attestation statement: I reviewed the patient's lab results. 06/20/25 18:27 06/20/25 18:27 Labs: Lab Results 06/20/25 Range/Units 18:27 WBC 6.7 (4.8-10.8) X10*3/uL RBC 2.95 L (4.20-5.50) X10*6/uL Hgb 9.6 L (12.0-16.0) g/dl Hct 28.8 L (37.0-47.0) % MCV 97.6 (80.0-98.0) fL MCH 32.5 (27.0-33.0) pg MCHC 33.3 (31.0-35.0) g/dl RDW 13.1 (11.0-16.0) % Plt Count 176 (160-400) X10*3/uL MPV 10.1 (9.4-12.3) fL Immature Gran % (Auto) 0.7 H (0.0-0.4) % Neut % (Auto) 62.0 (45-73) % Lymph % (Auto) 27.4 (20-40) % Coffee % (Auto) 7.8 (2-11) % Eos % (Auto) 1.5 (0-4) % Baso % (Auto) 0.6 (0-2) % Lymph # (Auto) 1.8 (1.2-4.9) X10*3/uL Coffee # (Auto) 0.5 (0.1-1.2) X10*3/uL Eos # (Auto) 0.1 (0.0-0.4) X10*3/uL Baso # (Auto) 0.0 (0.0-0.2) X10*3/uL Abs Immat Gran (auto) 0.05 H (0.00-0.03) X10*3/uL Absolute Neuts (auto) 4.1 (2.0-8.3) x10*3/uL Absolute Nucleated RBC 0.000 (0.0-0.012) X10*3/uL Nucleated RBC % (auto) 0.0 (0.0-0.2) /100WBC PT 11.8 (10.9-12.4) SEC INR 1.0 (0.9-1.1) Sodium 136 (135-145) mmol/L Potassium 4.7 D (3.3-5.1) mmol/L Chloride 106 (96-108) mmol/L Carbon Dioxide 23 (22-29) mmol/L Anion Gap 12 (12-20) BUN 7 L (9-16) mg/dL Creatinine 0.48 L (0.5-1.4) mg/dL Estim Creat Clear Calc 86.1 Estimated GFR > 60 Random Glucose 98 (60-115) mg/dL Calcium 8.3 L (8.4-10.2) mg/dL Magnesium 1.2 L* (1.6-2.6) mg/dL Total Bilirubin 0.4 (0.0-1.0) mg/dL AST 25 (5-31) U/L ALT 17 (0-31) U/L Alkaline Phosphatase 72 (39-117) U/L Troponin I High Sens 6.7 D (<3.5-17.0) ng/L Total Protein 5.9 L (6.5-8.0) g/dL Albumin 3.4 L (3.5-5.0) g/dL Beta-Hydroxybutyrate 0.20 (0.02-0.27) mmol/L TSH 0.10 L (0.32-4.0) uIU/mL Free T4 1.29 (0.71-1.85) ng/dL COVID-19 ([facility]) Negative (Negative) COVID-19 Clin Com See Note Influenza Type A ([facility]) Negative (Negative) Influenza Type B ([facility]) Negative (Negative) Influenza A & B Note See Note Independent Interpretation I performed an independent interpretation of an: EKG, Plain X-Ray and CT Scan Radiology Impression Discussion of test interpretation with radiology: I have reviewed the radiologist's reading. Discharge Plan Discharge Clinical Impression: Altered mental status, Delirium, Hypomagnesemia Patient Disposition: Admitted As Inpatient Print Language: Wolof
--- OUTSIDE RECORDS SUMMARY | 2025-06-20 18:24 | XMS_ITS | Clinical Summary ---
Author Organization [employer] Address [address] [place] [address] Care Team Providers Care Bone Crusher Name Role Phone Carl Rivera MD Primary [...] next 30 min. 12 tablet 3 4 Active atorvastatin (Lipitor) 20 MG tablet Take 1 tablet (20 mg) by mouth Once per day. 30 tablet 11 4 Active famotidine (Pepcid) 20 MG tablet Take 1 tablet (20 mg) by mouth 2 times daily. 180 tablet 3 4 Active linaGLIPtin-met FORMIN ER (Jentadueto XR) 5-1000 MG per 24 hr tablet Take 1 tablet by mouth with breakfast. 30 tablet 11 4 Active propranolol (Inderal) 20 MG tablet Take 1 tablet (20 mg) by mouth 2 times daily. 180 tablet 3 4 Active lisinopril 40 MG tablet Take 1 tablet (40 mg) by mouth Once per day. 90 tablet 3 4 08/08/20 25 Active Alcohol Sheets (Alcoh-Wipe) sheet Test daily before all meals/snacks and once before bedtime. 1 each 4 Active Lancets misc 1 each 3 times daily. 1 each 4 08/17/20 25 Active latanoprost (Xalatan) 0.005 % ophthalmic solution Administer 1 drop into both eyes at bedtime. 7.5 mL 3 5 Active mirtazapine (Remeron) 7.5 MG tabletIndicatio ns:Primary insomnia,Diffic ulty coping with disease TAKE 1 TABLET BY MOUTH AT BEDTIME 30 tablet 5 Active Blood Glucose Monitoring Suppl (ONE TOUCH ULTRA MINI) w/Device kit Test daily before all meals/snacks and once before bedtime. 1 kit 5 Active glucose blood test stripIndication s:Type 2 diabetes mellitus without complication, without long-term current use of insulin (HCC) 1 each by Other route 3 times daily. 100 each 11 5 11/23/19 26 Active insulin glargine (Lantus) 100 UNIT/ML injection Inject 5 Units under the skin at bedtime. 10 mL 12 5 11/23/19 26 Active insulin pen needle (B-D UF III MINI PEN NEEDLES) 31G x 5 mm misc Use as instructed 100 each 12 5 11/30/19 26 Active BD Insulin Syringe U/F 31G X 5/16 0.3 ML misc Inject 1 each under the skin Once per day. Use as instructed 90 each 3 5 11/30/19 26 Active aspirin 81 MG EC tablet Take 1 tablet (81 mg) by mouth Once per day. 30 tablet 11 4 06/06/20 25 Calcium Carb-Cholecalci ferol (Caltrate 600+D3) 600-20 MG-MCG tablet Take 1 tablet by mouth Once per day. 90 tablet 3 4 06/06/20 25 ferrous sulfate 325 (65 Fe) MG EC tablet Take 1 tablet (325 mg) by mouth with breakfast. Do not crush, chew, or split. 90 tablet 3 4 06/06/20 25 Active Problems Problem Noted Date Diagnosed Date Mixed stress and urge urinary incontinence 11/12 Assessment & Plan (11/12/2024 9:54 AM EDT): Will send requested DME's, for urine incontinence, Pamper ( Medium ) Wipes Left foot pain 08/03/2024 Assessment & Plan [...] 70, Gait abnormality 07/05/2024 Assessment & Plan (11/12/2024 9:53 AM EDT): Will send DME for aid and prevention of falling at home bathroom Shower grab bars Toilet grab bar Assessment & Plan (07/05/2024 3:03 PM EST): [...] use of insulin 06/06/2024 Assessment & Plan (11/08/2024 3:25 PM EDT): No reported episode of hypoglycemia, continue jentadueto, no changes will be made Assessment & Plan (07/05/2024 2:59 PM EST): Conrtolled, will discontinue metformin continue with jentadueto, keep low carb/no sugar diet, follow up in 3 months Pending eye exam New labs ordered Assessment & Plan (06/06/2024 1:24 PM EDT): Will consider simplifyning and optimizing therapy on next visit Primary hypertension 06/06/2024 Assessment & Plan (11/08/2024 3:25 PM EDT): Elevated but at home has remained below 130/80, no changes will be made, coninue low sodium diet and exercise as tolerated Assessment & Plan (08/08/2024 9:23 AM EST): [...] and will be referred to podiatry Encounters Date Type Department Care Team Description 06/17/[address] [address] Carl Rivera MD 06/17/[address] [address] Carl Rivera MD Call Back Request 06/14/[address] [address] Carl Rivera MD Nurse Triage 06/04/2025 Telephone [facility] [address] [place], [place] [phone] Carl Rviera MD Cologuard 04/10/[address] [address] Carl Rivera MD Durable Medical Equipment 04/07/2025 Orders Only GENERIC EXTERNAL DATA DEPARTMENT Provider, Generic External Data 03/21/[address] [address] Carl Rivera MD Durable Medical Equipment from Last 3 Months Social History Tobacco Use Types Packs/Day Years Used Date Smoking Tobacco: Unknown Tobacco Cessation:Counseling Given: Not Answered Depression Answer Date Recorded Patient Health Questionnaire-9 [...] Sign Reading Time Taken Comments Blood Pressure 145/62 11/22/2024 10:01 AM EDT Pulse 94 11/22/2024 10:01 AM EDT Temperature 36.2 C (97.2 F) 11/22/2024 10:01 AM EDT Respiratory Rate 14 11/08/2024 2:33 PM EDT Oxygen Saturation 99% 11/22/2024 10:01 AM EDT Inhaled Oxygen Concentration - - Weight 51.3 kg (113 lb) 11/08/2024 2:33 PM EDT Height - - Body Mass Index - - Plan of Treatment Health Maintenance Due Date Last Done Comments CT Colonography 1950 Colonoscopy 1950 Colorectal Cancer Screening 1950 FIT DNA/Cologuard 1952 FIT 1950 FOBT 1950 Sigmoidoscopy 1952 Alcohol/Substance Use Screening 1964 DTaP/Tdap/Td Vaccines (1 - Tdap) 1971 Diabetes: Urine Protein Screening 1971 Pneumococcal Vaccine: 50+ Years (1 of 2 - PCV) 1971 Mammogram 1992 Zoster Vaccines (1 of 2) 2002 RSV Patients and Patients Aged 60 years or older (1 - Risk 60-74 years 1-dose series) 2012 Diabetes: Hemoglobin A1C 01/02/2025 07/05/2024 COVID-19 Vaccine ( season) 2025 Influenza Vaccine (#1) 2025 SDOH Screening 06/28/2025 06/28/2024 Diabetes: Foot Exam 07/05/2025 07/05/2024, 07/05/2024, 07/05/2024, Additional history exists Depression Screening 09/06/2025 09/06/2024, 09/06/19 Lipid Panel 09/24/2025 09/24/2024 Tobacco Screening 11/22/2025 11/22/2024 Eye Exam 06/19/2026 06/19/2024 Hepatitis C Screening Completed 09/24/2024 HIB Vaccines Aged Out No longer eligi [...] patient's age to complete this topic Meningococcal B Vaccine Aged Out No l onger eligible based on patient's age to complete [...] Procedure Name Priority Date/Time Associated Diagnosis Comments XR CHEST 1 VIEW Routine 04/09/2025 6:02 PM EDT XR FEMUR 2+ VIEWS LEFT Routine 04/08/2025 1:52 PM EDT XR PELVIS 1-2 VIEWS Routine 04/08/2025 1 :[address] HEAD WO CONTRAST Routine 04/07/2025 2 :55 PM EDT HIGH SENSITIVITY TROPONIN I Routine 04/07/2025 2:54 PM EDT URINALYSIS, COMPLETE, WITH REFLEX TO CULTURE Routine 04/07/2025 2:54 PM EDT LACTIC ACID Routine 04/07/2025 2:[address] CERVICAL SPINE WO CONTRAST Routine 04/07/2025 2:50 PM EDT XR CHEST 1 VIEW Routine 04/07/2025 2:49 PM EDT HEPATITIS C AB W/REFL TO HCV RNA, QN, PCR Routine 09/24/2024 10:07 AM EST Type 2 diabetes mellitus without complication, without long-term current use of insulin (CMS/HCC) LIPID PANEL, STANDARD Routine 09/24/2024 10:07 AM EST Type 2 diabetes mellitus without complication, without long-term current use of insulin (CMS/HCC) POCT GLYCATED HEMOGLOBIN, TOTAL Routine 07/05/2024 1:35 PM EST Type 2 diabetes mellitus without complication, without long-term current use of insulin (CMS/HCC) AMB REFERRAL TO OPTOMETRY Routine 06/19/2024 Type 2 diabetes mellitus without complication, without long-term current use of insulin (CMS/HCC) from Last 3 Months or Most Recently Relevant to Health Maintenance Results * XR Chest 1 View (04/09/2025 6:02 PM EDT) Only the most recent of2 resultswithin the time period is included. Anatomical Region Laterality Modality Chest Radiographic Velma ging 04/09/2025 6:02 PM EDT Narrative 04/09/2025 6:03 PM EDT [address] [address] XRay Report Signed Patient: Kathy Ribera MR#: [id number] : 1950 Acct:[id number] Age/Sex: 74 / F ADM Date: 04/07/25 Loc: [facility] [address]: Erick Odom MD Ordering Physician: Erick Odom MD Date of Service: 04/09/25 Procedure(s): XR chest 1V Accession Number(s): [id number] cc: Carl Rivera MD; Erick Odom MD CLINICAL HISTORY: sob 1 view chest x-ray Comparison: CR - XR CHEST 1V - 04/07/25 12:45 EDT Findings: There are airspace opacities within the bilateral lower lungs. There are probable small bilateral pleural effusions. Heart size is normal. No acute fracture. IMPRESSION: 1. Airspace opacities within the bilateral lower lungs may be secondary to pneumonia and/or edema. 2. Probable small bilateral pleural effusions. This document has been electronically signed by: Tata Lea MD on 04/09/2025 18:02:47 Dictated By: Tata Lea MD Signed By: <Electronically signed by Tata Lea MD in OV> 04/09/25 180 DD/ 180 TD/TT: 04/09/251801 [employer] Inspector: Procedure Note Donotuseinterpreter, Image - 04/09/2025 [place] [address] XRay Report Signed Patient: Hugo Ribera#: [id number] : 1950cct:[id number] Age/Sex: 74 / FADM Date: 04/07/25 Loc: [facility] 479-[address]: Erick Odmo MD Ordering Physician: Erick Odom MD Date of Service: 04/09/25 Procedure(s): XR chest 1V Accession Number(s): [id number] cc: Carl Rivera MD; Erick Odom MD CLINICAL HISTORY: sob 1 view chest x-ray Comparison: CR - XR CHEST 1V - 04/07/25 12:45 EDT Findings: There are airspace opacities within the bilateral lower lungs. There are probable small bilateral pleural effusions. Heart size is normal. No acute fracture. IMPRESSION: 1. Airspace opacities within the bilateral lower lungs may be secondary to pneumonia and/or edema. 2. Probable small bilateral pleural effusions. This document has been electronically signed by: Tata Lea MD on 04/09/2025 18:02:47 Dictated By: Tata Lea MD Signed By: <Electronically signed by Tata Lea MD in OV> 04/09/251802 DD/ 01 TD/TT: 04/09/251801 [employer]work Salv[employer] Inspector: [facility] External Provider IMG XR PROCEDURES Final Result * XR Femur 2+ Views Left (04/08/2025 1:52 PM EDT) Anatomical Region Laterality Modality Lower Extremities, Femur Left Radiogr aphic Imaging 04/08/2025 1:52 PM EDT Narrative 04/08/2025 3:07 PM EDT [place] [address] XRay Report Signed Patient: Kathy Ribera MR#: [id number] : 1950 Acct:[id number] Age/Sex: 74 / F ADM Date: 04/07/25 [facility]: Erick Odom MD Ordering Physician: Erick Odom MD Date of Service: 04/08/25 Procedure(s): XR femur LT 2V Accession Number(s): [id number] cc: Carl Rivera MD; Erick Odom MD EXAMINATION: XR FEMUR, LEFT CLINICAL INFORMATION: fall, pain COMPARISON: None available. TECHNIQUE: AP and lateral views of the left femur were obtained. FINDINGS: Mild sclerosis along the articular surface of the left acetabulum. Asymmetric joint space narrowing the inferior left coxofemoral joint. There is bowing of the diaphysis, left femur. No acute cortical disruption. No periosteal bone reaction. XR/XR femur LT 2V IMPRESSION: No acute fracture. Mild osteoarthritis/osteoarthrosis, left hip. Electronically signed by: Nasim Garcia MD 04/08/2025 03:04 PM EDT RP Dictated By: Nasim Edmondson MD Signed By: <Electronically signed by Nasim Akbar MD in OV> 04/08/25 1504 DD/ 1352 TD/TT: 04/08/25 1455 [employer] Inspector: Procedure Note Donotaleenainterpreter, Image - 04/08/[address] [address] XRay Report Signed Patient: Hugo Ribera#: [id number] : 2Acct:[id number] Age/Sex: 74 / FADM Date: 04/07/25 Loc: [facility]: Erick Odom MD Ordering Physician: Erick Odom MD Date of Service: 04/08/25 Procedure(s): XR femur LT 2V Accession Number(s): [id number] cc: Carl Rivera MD; Erick Odom MD EXAMINATION: XR FEMUR, LEFT CLINICAL INFORMATION: fall, pain COMPARISON: None available. TECHNIQUE: AP and lateral views of the left femur were obtained. FINDINGS: Mild sclerosis along the articular surface of the left acetabulum. Asymmetric joint space narrowing the inferior left coxofemoral joint. There is bowing of the diaphysis, left femur. No acute cortical disruption. No periosteal bone reaction. XR/XR femur LT 2V IMPRESSION: No acute fracture. Mild osteoarthritis/osteoarthrosis, left hip. Electronically signed by: Nasim Garcia MD 04/08/2025 03:04 PM EDT RP Dictated By: Nasim Edmondson MD Signed By: <Electronically signed by Nasim Akbar MDin OV> 04/08/25 1504 DD/ 1352 TD/TT: 04/08/25 1455 Woodwork Salv[employer] Inspector: [facility] External Provider IMG XR PROCEDURES Final Result * XR Pelvis 1-2 Views (04/08/2025 1:51 PM EDT) Anatomical Region Laterality Modality Body, Pelvis Radiographic Velma ging 04/08/2025 1:51 PM EDT Narrative 04/08/2025 3:06 PM EDT [address] [address] XRay Report Signed Patient: Kathy Ribera MR#: [id number] : 1950 Acct:[id number] Age/Sex: 74 / F ADM Date: 04/07/25 [facility]: Erick Odom MD Ordering Physician: Erick Odom MD Date of Service: 04/08/25 Procedure(s): XR pelvis 1-2V Accession Number(s): [id number] cc: Carl Rivera MD; Erick Odom MD EXAMINATION: XR PELVIS CLINICAL INFORMATION: fall, pain COMPARISON: None available. TECHNIQUE: AP view of the pelvis. FINDINGS: Subchondral cyst formation and sclerosis and joint space narrowing with marginal osteophyte formation and low volume of the right coxofemoral joint. No acute cortical disruption or malalignment. Left hip demonstrate minimal subchondral cyst formation along the articular surface of the left acetabulum. Degenerative changes in the sacroiliac joints and symphysis pubis. There is a metallic probe in the midline of the lower pelvis probably rectum. XR/XR pelvis 1-2V IMPRESSION: Severe osteoarthritis/osteoarthrosis, right hip. Mild osteoarthrosis/osteoarthritis, left hip. Electronically signed by: Nasim Garcia MD 04/08/2025 03:03 PM EDT Dictated By: Nasim Edmondson MD Signed By: <Electronically signed by Nasim Akbar MD in OV> 04/08/25 1503 DD/ 1351 TD/TT: 04/08/25 1455 [employer]work Salv[employer] Inspector: Procedure Note Donotuseinterpreter, Image - 04/08/[address] [address] XRay Report Signed Patient: Talia RiberaR#: [id number] : 2Acct:[id number] Age/Sex: 74 / FADM Date: 04/07/25 Loc: [facility]: Erick Odom MD Ordering Physician: Erick Odom MD Date of Service: 04/08/25 Procedure(s): XR pelvis 1-2V Accession Number(s): [id number] cc: Carl Rivera MD; Erick Odom MD EXAMINATION: XR PELVIS CLINICAL INFORMATION: fall, pain COMPARISON: None available. TECHNIQUE: AP view of the pelvis. FINDINGS: Subchondral cyst formation and sclerosis and joint space narrowing with marginal osteophyte formation and low volume of the right coxofemoral joint. No acute cortical disruption or malalignment. Left hip demonstrate minimal subchondral cyst formation along the articular surface of the left acetabulum. Degenerative changes in the sacroiliac joints and symphysis pubis. There is a metallic probe in the midline of the lower pelvis probably rectum. XR/XR pelvis 1-2V IMPRESSION: Severe osteoarthritis/osteoarthrosis, right hip. Mild osteoarthrosis/osteoarthritis, left hip. Electronically signed by: Nasim Garcia MD 04/08/2025 03:03 PM EDT Dictated By: Nasim Edmondson MD Signed By: <Electronically signed by Nasim Akbar MDin OV> 04/08/25 1503 DD/ 1351 TD/TT: 04/08/25 1455 Woodwork Salvage Inspector: us [facility] External Provider IMG XR PROCEDURES Final Result * CT Head w/o Contrast (04/07/2025 2:55 PM EDT) Anatomical Region Laterality Modality Head, Neck Computed Tomogra phy 04/07/2025 2:55 PM EDT Narrative 04/07/2025 2:57 PM EDT [address] [address] [address] Scan Report Signed Patient: Kathy Ribera MR#: [id number] : 1950 Acct:[id number] Age/Sex: 74 / F ADM Date: 04/07/25 Loc: HO.ED Attending Dr: Ordering Physician: Maura Soto Date of Service: 04/07/25 Procedure(s): CT head/brain wo IV con Accession Number(s): [id number] cc: Carl Rivera MD; Maura Soto Report Number: [id number]: Total DLP = 740.00 mGy-cm CLINICAL HISTORY: fall head strike CT head without contrast. COMPARISON: None provided. FINDINGS: The visualized paranasal sinuses are clear. The mastoid air cells are clear. No calvarial fracture. No abnormality identified within the visualized orbital soft tissues. Atherosclerotic intracranial vasculature. No evidence for mass or mass effect. No intracranial hemorrhage or abnormal extra-axial fluid collection. 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 The ventricles are proportional with the degree of mild global cerebral volume loss without evidence of hydrocephalus. Basilar cisterns are patent. Posterior fossa appears unremarkable. IMPRESSION: 1. No acute intracranial findings. This document has been electronically signed by: Sebas Asher MD on 04/07/2025 14:55:13 Dictated By: Sebas Asher MD Signed By: <Electronically signed by Sebas Asher MD in OV> 04/07/25 1456 DD/ 1455 TD/TT: 04/07/25 1455 Woodwork Salvage Inspector: Procedure Note Donotuseinterpreter, Image - 04/07/[address] [place] [address] [address] Scan Report Signed Patient: Talia RiberaR#: [id number] : 1950cct:[id number] Age/Sex: 74 / FADM Date: 04/07/25 Loc: HO.ED Attending Dr: Ordering Physician: Maura Soto Date of Service: 04/07/25 Procedure(s): CT head/brain wo IV con Accession Number(s): [id number] cc: Carl Rivera MD; Maura Soto Report Number: [id number]: Total DLP = 740.00 mGy-cm CLINICAL HISTORY: fall head strike CT head without contrast. COMPARISON: None provided. FINDINGS: The visualized paranasal sinuses are clear. The mastoid air cells are clear. No calvarial fracture. No abnormality identified within the visualized orbital soft tissues. Atherosclerotic intracranial vasculature. No evidence for mass or mass effect. No intracranial hemorrhage or abnormal extra-axial fluid collection. 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 The ventricles are proportional with the degree of mild global cerebral volume loss without evidence of hydrocephalus. Basilar cisterns are patent. Posterior fossa appears unremarkable. IMPRESSION: 1. No acute intracranial findings. This document has been electronically signed by: Sebas Asher MD on 04/07/2025 14:55:13 Dictated By: Sebas Asher MD Signed By: <Electronically signed by Sebas Asher MD in OV> 04/07/256 DD/ 54 TD/TT: 04/07/251454 Woodwork Salvage Inspector: [facility] External Provider IMG CT PROCEDURES Edited Result - Final * (ABNORMAL) High Sensitivity Troponin I (04/07/2025 2:54 PM EDT) TROPONIN I HIGH SENSITIVITY 207.4(HH) <3.5 - 17.0 ng/L [facility] Comment:Critical value for t est(s): TROP Results called to and readback by: MAXINE Person calling: GAMAL Date: 04/07/25 Time:1530The [place] high sensitivity Troponin-I results should beused in conjunction with other diagnostic information suchas ECG, clinical observations and information, and patientsymptoms to aid in the diagnosis of DE. 04/07/2025 2:54 PM EDT 04/07/2025 3:00 PM EDT Generic External Data Provider LAB BLOOD ORDERAB LES Final Result [facility] [address] [place] [address] [phone] * (ABNORMAL) Urinalysis, Complete, with Reflex to Culture (04/07/2025 2:54 PM EDT) Color Urine Yellow [facility] Appearance Urine Cloudy [facility] PH 5.5 5.0 - 9.0 [facility] Glucose Urine UA Negative Negative mg/dL [facility] Urine Blood Trace(A) Negative [facility] Specific [place] - Urine 1.015 1.005 - 1.025 [facility] Urine Protein Trace Neg-Trace mg/dL [facility] Urine Ketones 40 Negative mg/dL [facility] Nitrite Urine Negative Negative [facility] Leukocyte Esterase Urine Large (3+)(A) Negative [facility] RBC Urine 0-2 0 - 2 /HPF [facility] Urine WBC 6-10(A) 0 - 5 /HPF [facility] Urine Squamous Epithelial Cell 0-2 0 - 2 /HPF [facility] Urine Bacteria None Seen None Seen [facility] Hyaline Casts, Urine 11-20 0 - 2 /LPF [facility] 04/07/2025 2:54 PM EDT 04/07/2025 3:16 PM EDT Narrative [facility] - 04/07/2025 3:31 PM EDT Urine, [place] us Generic External Data Provider LAB URINE ORDERAB LES Final Result [facility] [address] [place] [address] [phone] * Lactic Acid (04/07/2025 2:54 PM EDT) Lactic Acid 1.9 0.5 - 2.0 mmol/L [facility] 04/07/2025 2:54 PM EDT 04/07/2025 3:03 PM EDT us Generic External Data Provider LAB BLOOD ORDERAB LES Final Result [facility] [address] [place] [phone] * CT Cervical Spine w/o Contrast (04/07/2025 2:50 PM EDT) Anatomical Region Laterality Modality Spine, C-spine Computed Tomogra phy 04/07/2025 2:50 PM EDT Narrative 04/07/2025 2:51 PM EDT [address] [address] [address] Scan Report Signed Patient: Kathy Ribera MR#: [id number] : 1950 Acct:[id number] Age/Sex: 74 / F ADM Date: 04/07/25 Loc: HO.ED Attending Dr: Ordering Physician: Maura Soto Date of Service: 04/07/25 Procedure(s): CT cervical spine wo IV con Accession Number(s): [id number] cc: Carl Rivera MD; Maura Soto Report Number: [id number]: Total DLP = 0.00 mGy-cm CLINICAL HISTORY: fall neck pain CT cervical spine without contrast. COMPARISON: None provided. FINDINGS: Straightening of the normal cervical lordosis. Mild rightward curvature of the mid cervical spine. Vertebral body heights are maintained. Apical pleural thickening present bilaterally with calcified pleural plaques of the lung apices. Thyromegaly. Dystrophic calcifications present within the thyroid. Calcified plaque present at the carotid bulbs bilaterally. Visualized intracranial structures are unremarkable. C2-C3: Uncovertebral joint hypertrophy on the left. C3-C4: Posterior disc osteophyte complex. C4-C5: Anterior marginal osteophytes. Posterior disc osteophyte complex with ossification of the posterior longitudinal ligament. Uncovertebral joint hypertrophy. Ghezxvkn-vl-hzakms bilateral neural foraminal narrowing. C5-C6: Anterior marginal osteophytes. Ossification of the posterior longitudinal ligament. Uncovertebral joint hypertrophy. Moderate left neural foraminal narrowing. C6-C7: Anterior marginal osteophytes. Uncovertebral joint hypertrophy. Mild bilateral neural foraminal narrowing. IMPRESSION: 1. No evidence of acute injury to the cervical spine. 2. Straightening of the normal cervical lordosis with mild rightward curvature of the midcervical spine. 3. Moderate multilevel cervical spondylosis. This document has been electronically signed by: Sebas Asher MD on 04/07/2025 14:50:15 Dictated By: Sebas Asher MD Signed By: <Electronically signed by Sebas Asher MD in OV> 04/07/25 1451 DD/ 145 TD/TT: 04/07/25 145 Woodwork Salvage Inspector: Procedure Note Donotuseinterpreter, Image - 04/07/[address] [place] [address] [address] Scan Report Signed Patient: Hugo Ribera#: [id number] : 2Acct:[id number] Age/Sex: 74 / FADM Date: 04/07/25 Loc: HO.ED Attending Dr: Ordering Physician: Maura Soto Date of Service: 04/07/25 Procedure(s): CT cervical spine wo IV con Accession Number(s): [id number] cc: Carl Rivera MD; Maura Soto Report Number: [id number]: Total DLP = 0.00 mGy-cm CLINICAL HISTORY: fall neck pain CT cervical spine without contrast. COMPARISON: None provided. FINDINGS: Straightening of the normal cervical lordosis. Mild rightward curvature of the mid cervical spine. Vertebral body heights are maintained. Apical pleural thickening present bilaterally with calcified pleural plaques of the lung apices. Thyromegaly. Dystrophic calcifications present within the thyroid. Calcified plaque present at the carotid bulbs bilaterally. Visualized intracranial structures are unremarkable. C2-C3: Uncovertebral joint hypertrophy on the left. C3-C4: Posterior disc osteophyte complex. C4-C5: Anterior marginal osteophytes. Posterior disc osteophyte complex with ossification of the posterior longitudinal ligament. Uncovertebral joint hypertrophy. Uomvsycb-wr-dypnyi bilateral neural foraminal narrowing. C5-C6: Anterior marginal osteophytes. Ossification of the posterior longitudinal ligament. Uncovertebral joint hypertrophy. Moderate left neural foraminal narrowing. C6-C7: Anterior marginal osteophytes. Uncovertebral joint hypertrophy. Mild bilateral neural foraminal narrowing. IMPRESSION: 1. No evidence of acute injury to the cervical spine. 2. Straightening of the normal cervical lordosis with mild rightward curvature of the midcervical spine. 3. Moderate multilevel cervical spondylosis. This document has been electronically signed by: Sebas Asher MD on 04/07/2025 14:50:15 Dictated By: Sebas Asher MD Signed By: <Electronically signed by Sebas Asher MD in OV> 04/07/25 1451 DD/ 1450 TD/TT: 04/07/25 145 Woodwork Salvage Inspector: [facility] External Provider IMG CT PROCEDURES Edited Result - Final * Hepatitis C Antibody with Reflex to HCV, RNA, Quantitative, Real-Time PCR (09/24/2024 10:07 AM EST) Hepatitis C Antibody Nonreactive Nonreactive [facility] Comment:Antibodies to HCV no t detected; does not exclude early acuteHCV infection. Blood Venous blood specimen / Unknown 09/24/2024 10:07 AM EST 09/24/2024 11:30 AM EST Carl Crisostomo MD LAB BLOOD ORDERABL ES Final Result [facility] [address] [place] [phone] * (ABNORMAL) Lipid Panel, Standard (09/24/2024 10:07 AM EST) Triglycerides 72 <150 mg/dL [facility] Comment:Desirable Triglyceri de: less than 150 mg/dLBorderline High Triglyceride 150-199 mg/dLHigh Triglyceride: 200-499 mg/dLVery High Triglyceride: greater than or equal to 5OO mg/dL Cholesterol 102 <200 mg/dL [facility] Comment:Desirable Cholestero l: less than 200 mg/dLBorderline High Cholesterol: 200-239 mg/dLHigh Cholesterol: greater than 239 mg/dL LDL Cholesterol Calculated 54 <100 mg/dL [facility] Comment:Desirable LDL: less than 100 mg/dLNear Optimal/Above Optimal LDL: 110- 129 mg/dLBorderline High LDL: 130-159 mg/dLHigh LDL: 160-189 mg/dLVery High LDL: greater than or equal to 190 mg/dL HDL Cholesterol 34(L) >40 mg/dL [facility] Comment:Desirable HDL: great er than 40 mg/dL Note: This HDL assay may give artificially low results in patients with liver disease. Blood Venous blood specimen / Unknown 09/24/2024 10:07 AM EST 09/24/2024 11:30 AM EST Carl Crisostomo MD LAB BLOOD ORDERABL ES Final Result [facility] [address] [place] [address] [phone] * POCT HGB A1C (07/05/2024 1:35 PM EST) Hemoglobin A1C 5.7 4.0 - 6.0 % QC Media Lot # [id number] Lot# Expiration Date Blood 07/05/2024 1:35 PM EST Carl Crisostomo MD POINT OF CARE TEST ENTER/EDIT ORDERABLES Final Result * Referral to Optometry (06/19/2024) Carl Crisostomo MD OUTPATIENT REFERRA L ORDERABLES Final Result from Last 3 Months or Most Recently Relevant to Health Maintenance Insurance FORMERLY [facility] OPTIONS (O D-SNP) [facility] STAND[facility] Care Teams Bone Crusher Relationship Specialty Start Date End Date Carl Rivera MD [address] [place] [id number] PCP - General Internal Medicine 06/06/24
--- OUTSIDE RECORDS SUMMARY | 2025-06-20 18:24 | XMS_ITS | Encounter Summary ---
Author Organization [employer] Address [address] [facility] 7t [place] [address] Care Team Providers Care Cupola Operator Name Role Phone Carl Rivera MD Primary Care Prov ider Reason for Visit * Reason Onset Date Comments Medication Question 11/23/2024 Encounter Details Date Type Department Care Team (Late st Contact Info) Description 11/23/2024 Telephone [facility] MEDICINE [address] [place] [address] Carl Rivera MD [address] [place], [place] [phone] Medication Question Social History Tobacco Use Types Packs/Day Years Used Date Smoking Tobacco: Unknown Depression Answer Date Recorded Patient Health Questionnaire-9 Score 6 09/06/2024 Patient Health Questionnaire-9 Score 6 09/06/2024 Last PHQ-9: Questionnaire Data Not on file 0 09/06/2024 Housing Stability Answer Date Recorded What is your housing situation today? I have carlos a alexis 06/28/[address] you li [...] * Telephone Encounter - Rudy Cohen - 11/23/2024 10:13 AM EDT TC from son and his regarding new script insulin glargine (Lantus) 100 UNIT/ML injection . Requesting for provider to switch this to pen injection due to fear of needles. documented in this encounter Plan of Treatment Not on file documented as of this encounter Visit Diagnoses Not on filedocumented in this encounter Additional Health Concerns Assessment Noted Time PHQ-9 Depression Total Score: 6 09/06/19 25 12:03 PM EST documented as of this encounter Care Teams Cupola Operator Relationship Specialty Start Date End Date Carl Rivera MD [address] [place] [id number] PCP - General Internal Medicine 06/06/24 documented as of this encounter
--- OUTSIDE RECORDS SUMMARY | 2025-06-20 18:24 | XMS_ITS | Continuity of Care Document ---
Author Name [facility], Medical Address [address] [place] [address] Organization Unknown Address [address] [place] [address] Medications No known medications Problems No known problems
--- OUTSIDE RECORDS SUMMARY | 2025-06-20 18:24 | XMS_ITS | Encounter Summary ---
Author Organization [employer] Address [address] [facility] 7t [place] [address] Care Team Providers Care Group Director Experience Name Role Phone Carl Rivera MD Primary Care Prov ider Reason for Visit * Reason Onset Date Comments Nurse Triage 08/03/2024 Encounter Details Date Type Department Care Team (Late st Contact Info) Description 08/03/2024 Telephone [facility] MEDICINE [address] [place] [address] Carl Rivera MD [address] [place], [place] [phone] Nurse Triage Social History Tobacco Use Types [...] 08/03/2024 9:29 AM EST Called pt via [facility] research coordinator [phone] [address]. Glover , pt. Nephew answered phone. Pt. Feet are hurtingand her toes are turning black according to nephew and pt. Cries everyday according to pt. Nephew. This has been going on x 2 weeks. No drainage from toes. Pt. Is Diabetic and does have underlying circulatory issues and complications noted in chart. Pt. Nephew states that he took pt. [facility] x 1 week ago and they just took some tests and then sent pt. Home. I see a note from [facility] from 06/17/24 but, no recent ED [...] were negative * Telephone Encounter - Kunal Joaquim - 08/03/2024 9:14 AM EST Symptom: Leg Pain - Not From Injury Outcome: Talk to a nurse or provider within 15 minutes Reason: Can't walk (unless normally can't walk) Hungarian Speaker (Accepted Stem Maker) documented in this encounter Plan of Treatment Not on file documented as of this encounter Visit Diagnoses Not on filedocumented in this encounter Care Teams Group Director Experience Relationship Specialty Start Date End Date Carl Rivera MD [address] [place] [id number] PCP - General Internal Medicine 06/06/24 documented as of this encounter
--- OUTSIDE RECORDS SUMMARY | 2025-06-20 18:24 | XMS_ITS | Continuity of Care Document ---
Author Name [facility], Medical Address [address] [place] [id number] Organization Unknown Address [address] [place] [address] Medications No known medications Problems No known problems
--- OUTSIDE RECORDS SUMMARY | 2025-06-20 18:24 | XMS_ITS | Encounter Summary ---
Author Organization [facility] Address [address] [facility] [address] [place] [address] Encounters * CPT with Medical [facility] at [employer] on 2025-06-14 Pt patient portal representative called in with complaint of foul smelling urine. RN asked about other symptoms including burning, itching, back pain or blood in the urine but pt could not state any due to confusion. RN asked the pt to come to the office for further evaluation and to order a UA but the pt can't leave the home. Pt patient portal representative requested that someone come to the home to evaluate the pt. Pt has had these symptoms for two days. No fever noted. { reasonForRequest : , patientReports : , denies&quot ;:[], chiefComplaints : Urinary Symptoms, Confusion , pmh : Diabetes Mellitus Type 2, Hypertension , allergies : No Known Drug Allergies ,&q uot;otherAllergies : , painAssessment : , visitOutcome&quo t;: , additionalComments : HPI reviewed } SC6 responds to the listed address for a 75 yof w/ urinary symptoms. Upon arrival on scene, two family members and a OPHTHALMIC PHOTOGRAPHER are on scene. OPHTHALMIC PHOTOGRAPHER is caring for the pt who is found laying semi-fowlers in a hospital bed in her room. Pt is smiling and has a dreamy look in her eye. Pt does not respond when [facility] says hello, but she is tracking w/ her eyes and head asMIH moves about the room. She is not in acute distress. No ashen or lancaster color is noted, no stridor, sonorous respirations, or increased wob are noted. Her smile is equal, slurred speech is observed,and she is not bleeding anywhere. Bullet Swaging Machine Operator services are utilized and OPHTHALMIC PHOTOGRAPHER and family provide goodPmHx. OPHTHALMIC PHOTOGRAPHER is endorsing malodorous urine and is concerned pt may still have a UTI. Pt was started onKeflex empirically by her provider x7 days ago and has one pill left for today. The prescription [id number] BID for 7 days. OPHTHALMIC PHOTOGRAPHER and family endorse lingering and worsening s/s of UTI, including confusion , hallucinations, no sleep, not recognizing family members, and a seeming absencefrom reality . These s/s are not normal for her. She is bedridden and on hospice and moving her because of her L side stroke deficits and her deformed feet, which make it very difficult for her to move of be moved. OPHTHALMIC PHOTOGRAPHER is unable to tell if urine is cloudy or has blood, as pt uses pullup briefs. Family confirms twice the pt has NKDA and pt has anemia at baseline and takes an iron supplement. CG reports pt will need a straight catheterization. Pt is unable to answer questions from [facility]. She thinks CIERA is her niece and does not answer questions, speaking in a nonlinear and illogical thought pattern. Ddx: new onset dementia s/s, persistent UTI, MOLLY/kidney infection [facility] obtains vital signs and pt is assessed. Pt is normotensive, afebrile, and not hypoxic. A FSBG is obtained due to her DMII status, possible infection, and lack of daily monitoring by family. CBG is WNL. Head is atruamatic and normocephalic. Sclera are clear, pupils are 2mm and nonreactive, extraocular movements are intact. Neck is supple and trachea is midline. Conjunctiva and oral mucosa are pink and moist. Lung sounds are clear to auscultation bilaterally, no CVA tenderness is present and abdomen is soft and nontender in all four quadrants. region appears to be normal w/ no outward signs of bleeding, discharge, or infection. No peripheral edema is noted and cap refill is <2 sec. Pt has baseline contractures of her arms and legs, but they are pliable. Pt does not answer questions and needs consistent prompting to follow- through on commands. Pt is placed supine, OPHTHALMIC PHOTOGRAPHER removes briefs and pt is positioned for straight cath. A 12fr urinary catheter is placed using sterile technique and urine is obtained for culture and UA. Urine initially runs yellow and clear, but becomes very chris in color w/ copious amounts of sediment as the bladder is fully drained. Nearly 200mls is drawn from the bladder and culture and UA are obtained. Urine is noted to be malodorous by this provider. UA shows markers of infection. [facility] contacts [facility] and discusses the above. [facility] orders a BMP to r/o signs of MOLLY. IV access is obtained in the R AC using aseptic technique and a 21ga butterfly. Blood is drawn for BMP and butterfly is removed and pressure bandage is applied w/ 2x2 and tape. [facility] [id number] ceftriaxone IV for pt and calls in prescription for cefpodoxime to pt's pharmacy. [facility] ensures family understands the treatment and why and confirms they have no questions. A 22ga IV is obtained inthe L AC using aseptic technique, locked w/ saline lock and secured. 1G ceftriaxone is reconstituted w/ 10mls sterile water and placed in to 100mls NS and administered IV over 10min. IV is flushed w/NS post administration and IV is removed and pressure bandage applied. [facility] informs family to seek emergency care if pt develops worsening s/s, a high fever, uncontrolled n/v/d, worsening confusion, seizures, or syncope. Family confirms abx dosing and length of the course and thanks [facility] for visit. [facility] is clear. Report completed by MICHELL Benavidez [id number]. ORAL_MEDICATION, EKG, POC_BLOODWORK, GLUCOSE, URINE_DIPSTICK, CULTURE_URINE Written by Medical [facility] on 2025-06-14
--- OUTSIDE RECORDS SUMMARY | 2025-06-20 18:24 | XMS_ITS | Encounter Summary ---
Author Organization [employer] Address [address] [facility] 7t [place] [address] Care Team Providers Care Test Baker Name Role Phone Carl Rivera MD Primary Care Prov ider Reason for Visit * Reason Onset Date Comments Call Back Request 06/17/2025 Encounter Details Date Type Department Care Team (Late st Contact Info) Description 06/17/2025 Telephone [facility] MEDICINE [address] [place] [address] Carl Rivera MD [address] [place], [place] [phone] Call Back Request Social History Tobacco Use Types Packs/Day Years [...] encounter Miscellaneous Notes * Telephone Encounter - Jadyn Luu RN - 06/17/2025 4:16 PM EDT No proxy or HIPAA noted for person calling. Pt or person listed in HIPAA can call to receive lab results. No recent lab results listed in chart besides outside ordering provider from March. * Telephone Encounter - Luli Almaraz - 06/17/2025 11:16 AM EDT TC from [place] requesting a call back with lab results. PCP DR. Shipley documented in this encounter Plan of Treatment Not on file documented as of this encounter Visit Diagnoses Not on filedocumented in this encounter Additional Health Concerns Assessment Noted Time PHQ-9 Depression Total Score: 6 09/06/19 25 12:03 PM EST documented as of this encounter Care Teams Test Baker Relationship Specialty Start Date End Date Carl Rivera MD [address] [place] [phone] PCP - General Internal Medicine 06/06/24 documented as of this encounter
--- OUTSIDE RECORDS SUMMARY | 2025-06-20 18:24 | XMS_ITS | Clinical Summary ---
Author Organization [address] [facility] Address [address] [place] [address] Phone Care Team Providers Care Field Gauger Name Role Phone Carl Rivera Primary Care Provide r Allergies No known active allergies Medications ammonium lactate (AmLactin) 12 % lotion Apply topically if needed for dry skin. 400 g 2 5 09/20/19 26 Active ammonium lactate (AmLactin) 12 % lotion Apply topically if needed for dry skin. 400 g 2 5 11/23/19 26 Active Social History Tobacco Use Types Packs/Day Years Used Date Smoking Tobacco: Never Assessed Comments Unknown Sex and Gender Information Value Date Recorded Sex Assigned at Not on file Legal Sex Female 4:38 PM EDT Gender Identity Not on file Sexual Orientation Not on file Last Filed Vital Signs Vital Sign Reading Time Taken Comments Blood Pressure - - Pulse - - Temperature - - Respiratory Rate - - Oxygen Saturation - - Inhaled Oxygen Concentration - - Weight 49.9 kg (110 lb) 11/22/2024 1:17 PM EDT Height - - Body Mass Index - - Plan of Treatment Health Maintenance Due Date Last Done Comments Breast Cancer Screening 1950 Colorectal Cancer Screening: Colonoscopy 1950 Diabetes: Annual Foot Exam 1962 Diabetes: Annual Retina Eye Exam 1962 DTaP,Tdap,and Td Vaccines (1 - Tdap) 1971 Pneumococcal Vaccine: 50+ Ye ars (1 of 2 - PCV) 1971 RSV Immunization Adult Patie nts (1 - Risk 50-74 years 1-dose series) 2002 Zoster Vaccines (1 of 2) 2002 Falls Risk Assessment 06/17/2024 Medicare Annual Wellness Visit 06/17/2024 Osteoporosis Screening (Bone Density Screening) 06/17/2024 Social Influencers of Health Screening 06/17/2024 Depression Screening 08/22/2024 Diabetes: Annual Urine Albumin-Creatinine Ratio (uACR) 09/20/2024 Diabetes: Blood Sugar Contro l Test (HGBA1C) 01/02/2025 07/05/2024 COVID-19 Vaccine (1 - 2023-2 5 season) 2025 Influenza Vaccine (#1) 2025 Diabetes: Annual GFR (Glomer ular Filtration Rate) 09/24/2025 09/24/2024 Hypertension/CHF/CAD Annual BMP Blood Test 09/24/2025 09/24/2024 Cholesterol Screening (Lipid Panel) 09/24/2029 09/24/2024 Hepatitis C Screening Completed 09/24/2024 HIB Vaccines [...] on patient's age to complete this topic Insurance MEDICAID - [facility] MEDICARE Member Subscriber Plan / Payer (Ef fective 2024-Present) Name:DEO ODOMKATHY Relation to Subscriber:Self Name:Tristian Chavarriaa Payer ID:[id number] Group ID:Not on file Type:Not on file Address: [address] [place] [phone] Care Teams Field Gauger Relationship Specialty Start Date End Date Carl Rivera [address] [place] [address] PCP - General 06/08/24
--- OUTSIDE RECORDS SUMMARY | 2025-06-20 18:24 | XMS_ITS | Encounter Summary ---
Author Organization [employer] Address [address] [facility] 7t [place] [address] Care Team Providers Care Combination Building Inspector Name Role Phone Carl Rivera MD Primary Care Prov ider Encounter Details Date Type Department Care Team (Late st Contact Info) Description 09/26/2024 Orders Only [facility] MEDICINE [address] [place] [address] Carl Rivera MD [address] [place], [place] [phone] Social History Tobacco Use Types Packs/Day Years [...] as of this encounter Plan of Treatment Not on file documented as of this encounter Visit Diagnoses Not on filedocumented in this encounter Additional Health Concerns Assessment Noted Time PHQ-9 Depression Total Score: 6 09/06/19 25 12:03 PM EST documented as of this encounter Care Teams Combination Building Inspector Relationship Specialty Start Date End Date Carl Rivera MD [address] [place] [address] PCP - General Internal Medicine 06/06/24 documented as of this encounter
--- OUTSIDE RECORDS SUMMARY | 2025-06-20 18:24 | XMS_ITS | Data Portability ---
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 Leopoldo Maldonado is a 74 yo F who has HTN or DM2 who is here today with several weeks of gradual fatigue and deterioration. POC glucose 260. COVID/flu negative. Sick contact at home. Could be similar viral URI. Unable to give a urine. No recent falls or head strikes. But had a fall a while ago, but nothing recently. Vitals are stable. No pain anywhere. But am suspicious for possible UTI. Advised that if she can give urine tomorrow. We can return for another visit. Has PCP f/u in 2 weeks. Advised for close ER or PCP f/u. I provided real -time medical direction via phone for this encounter, and was available for additional phone based assistance as needed. I have reviewed and agree with the Assessment and Plan as documented by the [employer]. We discussed the diagnostic uncertainty of home visits and the risk associated with this. In this case the patient and I felt this to be an acceptable and reasonable amount of risk given the benefit of avoiding an ED visit. The patient given the opportunity to ask questions. Follow up with primary care was recommended, as needed. Advised if develops CP/severe SOB/turning blue/uncontrolle d n/v/d or black/bloody emesis or stool/ AMS/ syncope/ high fever unresponsive to APAP to call 911- verbalized understanding of instruction. [email or web address] Not available 09/20/2024 20:05:36 03/19/2025 03/19/2025 I provided real -time medical direction via phone for this encounter and was available for additional phone-based assistance as needed. I have reviewed and agree with the Assessment and Plan as documented by the Utility [employer]. Patient given the opportunity to ask questions. Our service contacted for an assessment of: Urinary symptoms As per above, patient with approximately 24 hours of dysuria, frequency. No history of frequent urinary tract infections. Denies fever, chills, abdominal pain, back pain, flank pain. Last UTI was October 2024 and urine culture was positive for Annie. Per administrative services director on the scene, Vital signs are stable and the patient is afebrile. Patient is nontoxic in appearance. UA is positive for leukocytes. Impression: Urinary symptoms and possible UTI Plan: Given previous culture results, will check a urine culture before prescribing abx. Red flags discussed. Allergies: reviewed We discussed the diagnostic uncertainty of home visits and the risk associated with this. In this case, the patient and I felt this to be an acceptable and reasonable amount of risk given the benefit of avoiding an ED visit. We discussed the need to seek care urgently/emergen tly in the setting of any new or worsening serious symptoms, particularly fever chills [email or web address] Not available 03/19/2025 16:44:31 06/14/2025 06/14/2025 I provided real -time medical direction via phone for this encounter, and was available for additional phone based assistance as needed. I have reviewed and agree with the Assessment and Plan as documented by the Utility [employer]. We discussed the diagnostic uncertainty of home visits and the risk associated with this. In this case the family and I felt this to be an acceptable and reasonable amount of risk given the benefit of avoiding an ED visit.Informed family if ams not improving w/ abx may need further w/u as to etiology The patient given the opportunity to ask questions. Advised if develops CP/severe SOB/turning blue/uncontrolle d n/v/d or black/bloody emesis or stool/worsening AMS/ syncope/ hi fever to call 911- verbalized understanding of instruction [email or web address] Not available 06/15/2025 23:04:42 Plan of Treatment Reminders Order Date Submit Date Provider Last Modified By Organization Details Last Modified Time Details Appointments None recorded. Lab culture, urine 2024 025 HUNG [facility] (Centralized Electronic Ordering - All Locations), Patient Can Go To The Location Of Their Choice, [id number] 10/25/202 5 20:05:45 urinalysis, dipstick 2024 025 [email or web address] 0 [facility], [address] [place] [address], [id number] 5 12:06:32 glucose, fingerstick , blood 2024 025 [email or web address] 0 [facility], [address] [place] [address], [id number] 5 12:08:44 BMP, serum or plasma 2024 025 [facility], [address] [place] [address], [id number] 5 20:54:47 urinalysis, dipstick 2024 [facility], [address] [place] [address], [id number] 17:03:51 culture, urine 2024 025 HUNG [facility] (Centralized Electronic Ordering - All Locations), Patient Can Go To The Location Of Their Choice, [facility] 20:06:04 culture, urine 2024 025 HUNG [facility] (Centralized Electronic Ordering - All Locations), Patient Can Go To The Location Of Their Choice, [facility] 5 12:05:52 urinalysis, dipstick 2024 025 [facility], [address] [place] [address], [id number] 19:16:17 BMP, serum or plasma 2024 025 [facility], [address] [place] [address], [id number] 19:16:35 glucose, fingerstick , blood [address], [address] [place] [address], [id number] 18:19:56 rapid SARS CoV 2 Ag, QL IA, respiratory specimen [address], [address] [place] [address], [id number] 5 18:19:56 rapid flu (A+B) [address], [address] [place] [address], [id number] 18:19:56 Referral None recorded. Procedures catheteriza tion straight - procedure (PROC) 2024 025 [email or web address] 0 Not available 23:07:59 Surgeries None recorded. Imaging None recorded. Medication Orders cefpodoxime 200 mg tablet 2024 025 [facility], [address] [place] [address], [id number], 5 10:07:14 ceftriaxone 1 gram solution for injection 2024 025 [email or web address] 0 [facility], [address] [place] [address], [id number], 5 12:47:58 nitrofurant oin macrocrysta l 100 mg capsule 2024 025 [facility], [address] [place] [address], [id number], 14:11:22 nitrofurant oin macrocrysta l 100 mg capsule 2024 025 [email or web address] [facility], [address] [place] [address], [id number], 18:09:59 Patient TargetsNo targets recorded. Patient InstructionsNo instructions recorded. Reason for Referral None Reported. Results Created Date Observation Date Name Description Value Unit Range Abnormal Flag Note LastModifiedBy Organization Detail LastModifiedTime 09/20/19 25 09/20/2024 rapid flu (A+B) Flu negati ve Not Available [facility] ed [address] [place] [address], [id number] 09/20/2024 18:19:29 09/20/19 25 09/20/2024 rapid SARS CoV 2 Ag, QL IA, respi rator y speci men rapid SARS CoV 2 Ag, QL IA, respiratory specimen negati ve Not Available [facility] [address] [place] [address], [id number] 09/20/2024 18:19:25 09/20/19 25 09/20/2024 gluco se, finge rstic k, blood Blood Glucose: mg/dl 260 Not Available [facility] [address] [place] [address], [id number] 09/20/2024 18:19:20 11/20/19 25 11/21/2024 URINE CULTU RE,CO MPREH ENSIV E urine culture,comp rehensive Final report abnormal Not Available [facility] ([facility]) [address] [place], [address], 11/21/2024 12:05:52 11/20/19 25 11/21/2024 URINE CULTU RE,CO MPREH ENSIV E result 1 Candid a albica ns abnormal Great er than 100,0 00 colon y formi ng units per mL Not Available [facility] ([facility]) [address] [place], [address], 11/21/2024 12:05:52 03/19/20 25 03/21/2025 URINE CULTU RE, ROUTI NE urine culture, routine Final report abnormal Not Available [facility] ([facility]) [address] [place], [address], 03/21/2025 16:06:22 03/19/20 25 03/21/2025 URINE CULTU RE, ROUTI NE result 1 Escher ichia coli abnormal Cefaz maryse with an SHAHZAD <=16 predi cts susce ptibi lity to the oral agent s cefac geovanna, cefdi elle, cefpo doxim e, cefpr ozil, cefur oxime , cepha lexin , and lorac arbef when used for thera py of uncom plica carline urina ry tract infec tions due to E. coli, Klebs iella pneum oniae , and Prote us mirab ilis. Great er than 100,0 00 colon y formi ng units per mL Not Available [facility] ([facility]) [address] [facility], [place], [address], 03/21/2025 16:06:22 03/19/20 25 03/21/2025 URINE CULTU RE, ROUTI NE antimicrobia l susceptibili ty Commen t S = Susce ptibl e; I = Inter media te; R = Resis tant P = Posit ronen; N = Negat ronen MICS are expre ssed in micro grams per mL Antib iotic RSLT# 1 RSLT# 2 RSLT# 3 RSLT# 4 Amoxi cilli n/Cla vulan ic Acid S Ampic illin S Cefaz maryse S Cefep lobo S Cefox itin S Cefpo doxim e S Ceftr iaxon e S Cipro floxa stephanie S Ertap enem S Genta micin S Levof loxac in S Merop enem S Nitro furan toin S Piper acill in/Ta zobac alvarado S Tetra cycli ne S Tobra mycin S Trime thopr im/Pierson lfa S Not Available [facility] ([facility]) [address] [facility], [place], [address], 03/21/2025 16:06:22 06/14/20 25 06/17/2025 URINE CULTU RE, UROLO GY TAMMY P urine culture, urology workup Final report abnormal Not Available [facility] ([facility]) [address] [facility], [place], [address], 06/17/2025 16:05:59 06/14/2006/17/2025 URINE CULTU RE, UROLO GY TAMMY P result 1 Entero coccus faecal is abnormal Enter ococc i susce ptibl e to penic illin are predi ctabl y susce ptibl e to ampic illin , amoxi cilli n, ampic illin -sulb actam , amoxi cilli n-cla vulan ate, and piper acill in-ta zobac alvarado for non-b eta-l actam ase produ cing enter ococc i. (CLSI 2018) For Enter ococc us speci es, amino glyco sides (exce pt for high- level resis tanmodesto sims) , cepha lospo rins, clind amyci n, and trime thopr im-pierson lfame thoxa zole are not effec tive clini yamilet . (CLSI , M100- S26, 2016) 10,00 0-25, 000 colon y formi ng units per mL Not Available [facility] ([facility]) [address] [facility], [place], [address], 06/17/2025 16:05:59 06/14/2006/17/2025 URINE CULTU RE, UROLO GY TAMMY P antimicrobia l susceptibili ty Commen t S = Susce ptibl e; I = Inter media te; R = Resis tant P = Posit ronen; N = Negat ronen MICS are expre ssed in micro grams per mL Antib iotic RSLT# 1 RSLT# 2 RSLT# 3 RSLT# 4 Cipro floxa stephanie S Levof loxac in S Nitro furan toin S Penic illin S Tetra cycli ne R Vanco mycin S Not Available [facility] ([facility]) [address] [facility], [place], [address], 06/17/2025 16:05:59 06/14/2006/14/2025 gluco se, finge rstic k, blood Blood Glucose: mg/dl 134 Not Available [facility] [address], [phone] 06/14/2025 12:08:15 06/14/20 25 06/14/2025 urina lysis , dipst ick Appearance cloudy / sedmin et/ sl blood end of void + odor Not Available [facility] [address], [id number] 06/14/2025 12:05:44 06/14/20 25 06/14/2025 urina lysis , dipst ick Color Dark yellow /chris Not Available [facility]-[address], [place], [address] 06/14/2025 12:05:44 Result Notes None recorded. Medical Equipment None Reported. Allergies No known drug allergies Medications Name Sig Start Date Stop Date Status Note LastModified by Organization Details LastModified Time latanoprost 0.005 % eye drops INSTILL 1 DROP IN EACH EYE AT BEDTIME active Not Available Not Available No t Available atorvastatin 20 mg tablet TAKE 1 TABLET BY MOUTH EVERY DAY active Not Available Not Available No t Available ammonium lactate 12 % lotion APPLY TOPICALLY NEEDED FOR DRY SKIN active Not Available Not Available No t Available cefpodoxime 200 mg tablet Take 1 tablet every 12 hours by oral route for 7 days. 2024 active Not Available Not Available Not Avai lable fluconazole 200 mg tablet TAKE 1 TABLET BY MOUTH EVERY DAY FOR 7 DAYS active Not Available Not Available No t Available alendronate 70 mg tablet take 1 tablet by mouth once a week with 6 to 8 oz of water 30 min before first food of day. do not lie down for 30 minutes active Not Available Not Available No t Available Lantus U-100 Insulin 100 unit/mL subcutaneous solution INJECT 5 UNITS SUBCUTANEOU SLY DAILY AT BEDTIME active Not Available Not Available N ot Available amlodipine 2.5 mg tablet TAKE 1 TABLET BY MOUTH EVERY DAY active Not Available Not Available No t Available aspirin 81 mg tablet,delay ed release TAKE 1 TABLET BY MOUTH EVERY DAY active Not Available Not Available No t Available tramadol 50 mg tablet TAKE 1 TABLET BY MOUTH EVERY TWELVE HOURS NEEDED FOR SEVERE PAIN FOR UP TO 14 DAYS active Not Available Not Available No t Available ketorolac 0.5 % eye drops PLACE 1 DROP IN THE AFFECTED EYE THREE TIMES DAILY STARTING 2 DAYS BEFORE YOUR SURGERY DIRECTED active Not Available Not Available No t Available famotidine 20 mg tablet TAKE 1 TABLET BY MOUTH TWICE DAILY active Not Available Not Available No t Available prednisolone acetate 1 % eye drops,suspen missy INSTILL 1 DROP THE OPERATIVE EYE THREE TIMES DAILY, START 2 DAYS BEFORE SURGERY DIRECTED active Not Available Not Available No t Available nitrofuranto in macrocrystal 100 mg capsule Take 1 capsule by oral route. 2024 active Not Available Not Available Not Avai lable lisinopril 10 mg tablet TAKE 1 TABLET BY MOUTH EVERY DAY active Not Available Not Available No t Available lisinopril 30 mg tablet TAKE 1 TABLET BY MOUTH ONCE DAILY active Not Available Not Available No t Available ferrous sulfate 325 mg (65 mg iron) tablet,delay ed release TAKE 1 TABLET BY MOUTH EVERY DAY WITH BREAKFAST. DO NOT BREAK, CRUSH, DISSOLVE OR CHEW active Not Available Not Available No t Available propranolol 20 mg tablet TAKE 1 TABLET BY MOUTH TWICE DAILY active Not Available Not Available No t Available lisinopril 40 mg tablet TAKE 1 TABLET BY MOUTH ONCE DAILY active Not Available Not Available No t Available metformin ER 500 mg tablet,exten ded release 24 hr TAKE 1 TABLET BY MOUTH EVERY DAY WITH DINNER. DO NOT BREAK, CRUSH, DISSOLVE OR CHEW active Not Available Not Available No t Available Alcohol Prep Pads USE THREE TIMES DAILY Antes de medir el azcar en la cyrus active Not Available Not Available No t Available mirtazapine 7.5 mg tablet TAKE 1 TABLET BY MOUTH AT BEDTIME active Not Available Not Available No t Available nitrofuranto in monohydrate/ macrocrystal s 100 mg capsule TAKE 1 CAPSULE BY MOUTH EVERY TWELVE HOURS FOR 5 DAYS active Not Available Not Available No t Available FreeStyle Lite Strips USE DIRECTED TO TEST BLOOD SUGAR THREE TIMES DAILY active Not Available Not Available Not Available FreeStyle Barnwell Lite kit USE TO TEST BLOOD SUGAR THREE TIMES DAILY active Not Available Not Available No t Available calcium 600 mg (as carbonate)-v itamin D3 20 mcg (800 unit) tablet TAKE 1 TABLET BY MOUTH EVERY DAY active Not Available Not Available No t Available TRUEplus Lancets 33 gauge USE DIRECTED TO CHECK BLOOD SUGAR THREE TIMES DAILY active Not Available Not Available Not Available BD Insulin Syringe Ultra-Fine 0.3 mL 31 gauge x 5/16 USE DIRECTED TO INJECT INSULIN EVERY DAY active Not Available Not Available No t Available Jentadueto XR 5 mg-1,000 mg tablet, extended release TAKE 1 TABLET BY MOUTH EVERY DAY WITH BREAKFAST active Not Available Not Available No t Available Vitals Date Recorded Body temperature Respiratory rate Body weight Heart rate Oxygen saturation Oxygen saturation in Arterial blood by Pulse oximetry Systolic And Diastolic Provider Name and Address Organization Details Last Updated DateTime 5 99.9 [degF] 16 /min 61132.1 2 g 83 /min 98 % 98 % 151/72 mm[Hg] Not Available [employer] - production 5 18:04:21 Date Recorded Respiratory rate Oxygen saturation Oxygen saturation in Arterial blood by Pulse oximetry Heart rate Systolic And Diastolic Provider Name and Address Organization Details Last Updated DateTime 5 14 /min 99 % 99 % 90 /min 150/81 mm[Hg] Not Available [employer] - production 17:52:51 Date Recorded Body temperature Heart rate Oxygen saturation Oxygen saturation in Arterial blood by Pulse oximetry Respiratory rate Systolic And Diastolic Provider Name and Address Organization Details Last Updated DateTime 99.9 [degF] 67 /min 98 % 98 % 16 /min 140/70 mm[Hg] Not Available [employer] - production 16:36:39 Date Recorded Oxygen saturation Oxygen saturation in Arterial blood by Pulse oximetry Respiratory rate Body weight Body temperature Heart rate Body height Systolic And Diastolic Provider Name and Address Organization Details Last Updated DateTime 99 % 99 % 16 /min 27744.1 6 g 98.1 [degF] 85 /min 134.62 cm 133/78 mm[Hg] Not Available [employer] - 12:01:09 Social History None recorded. Functional Status None recorded. Mental Status None recorded. Family History Nothing Reported. Medical History No medical history recorded. Gynecological HistoryNo gynecological history recorded. Obstetrics History GPAL:G 0 P 0 0 0 0 Past Encounters Encounter ID Performer Location Encounter Start Date Encounter Closed Date Diagnosis/Indication Diagnosis SNOMED-CT Code Diagnosis ICD10 Code Diagnosis IMO Codes Diagnosis Note [id number] MARIELY CLEMENTS MD Main [address] [address] 09/20/2024 17:37:17 09/20/2024 22:38:26 Intermittent confusion 768222071 R41.0 [id number] Cecy Kruse MD [facility] - [address] [address] 11/19/2024 17:52:47 11/19/2024 23:41:10 Urinary symptoms 370589526 R39.9 Evaluation in the field was performed by my administrative services director colleague, as noted above, I provided real-time direction and supervisio n for this visit.This is a 74yo F PMHx T2DM, HTN recently here from MD who is p/w 1 week dysuria and urinary frequency. Deny fevers, back pain. No known hx UTIs. Family noted lump on exertnal vagina VS: wnlParamed ic exam: no CVA TTP, external vagina with non-painfu l small lump R labia in area of Bartholin' s glandPOC testing: UA +leuks, protein, blood - nitrate, POC BMP Cr 0.58 glucose 201 Na 135 Impression : UTI; likely scar tissue from prior Bartholin' s cystPlan:e mpiric tx nitrofuran toin, UCx sent; PCP f/up Bartholin' s (instructe d to call urgently if growing or painful)Re d flags reviewed, pt expressed understand ing For PCP: f/up UCx and tailor abx prn; please examine external vagina and consider further work up pending exam We discussed the diagnostic uncertaint y of home visits and the risk associated with this. In this case, the patient and I felt this to be an acceptable and reasonable amount of risk given the benefit of avoiding an ED visit. We discussed the need to seek care urgently/e mergently in the setting of any new or worsening serious symptoms, shortness of breath, cough, chest pain, fever. [id number] Juliane Driscoll MD [facility] [address] [address] 03/19/2025 16:36:32 03/19/2025 17:40:48 Urinary system finding [id number] R39.9 [id number] [facility] [address] [address] 06/14/2025 12:01:02 06/16/2025 19:46:38 Disorientated 82615994 R41.0 [id number] Urine chris and cloudy consistent with UTI with 500+ leukocytes /fingersti ck was 134. Due to chris color of urine I ordered a BMP which showed mild anemia and borderline hyponatrem ia/normal renal function not concerning . Advised family/CG will call if UC reveals need for a diff abx Hold last cephalexin pill- will give 1 st dose iv abx (ceftriaxo ne )can start pills tomorrow am-patient has had cefpodoxim e before. He has broader spectrum than cephalexin . The last urine culture I have for her on 03/19/2025 showed a pa-sensiti ve E. coli. Family reports that relieved any of her symptoms at the time. Health Concerns Section Related Observation LastModified by Organization Detai ls LastModified Time None Recorded Concern Status LastModified by Organization Details LastModified Time None Recorded Advance Directives Directive None Recorded Payers Insurance Date Sequence Insurance Name Policy Number Policy Marie Covered Member ID Marie Member ID Guarantor Name 06/16/2025 1 [facility] - DOS ON OR AFTER 2022 - DUAL ELIGIBLE - SNF OPTIONS AND ONE CARE (MEDICARE REPLACEMENT/ADV ANTAGE - HMO) Kathy Maldonado [id number] Kathy Maldonado Notes Date Note Type Note Provider Name and Address Organization Details Recorded Time 09/20/2024 text/html ROS as noted in the HPI HPI: Patient with increased noted confusion as noted by family members. No overt illness. No BG reported. .................... .................... .................... .................... .................... .................... .................... . [facility] Nurse Triage Notes (Chucho Mukherjee - RN): Chief Complaints: Altered mental status PMH: Diabetes Mellitus Type 2, Hypertension PMH Reviewed at 09/20/2024 - 15:11 Allergies Reviewed at 09/20/2024 - 15:11 Comments: HPI reviewed by this RN, no further information needed to process visit -Mary Mukherjee RN [employer] Organization Information for [facility] Business Legal Name: [employer]. Address: [address] [place] [address], Charity Fundraiser: Mickey Siddiqui MD CLIA No.: [id number] [employer] POC Test Results from [facility] Blood Glucose Measurement (18:04:25) Blood Glucose: 260 mg/dL Rapid COVID antigen (18:04:35) COVID: - Rapid influenza antigen (18:04:36) Flu: - .................... .................... .................... .................... .................... .................... .................... . [employer] Note From Jan Fenton: [facility] visit for female pt. Pt presents with family at home. Family korean speaking only so banquet cook was used. Family reports concerns about some confusion and cough in the last 2 weeks. Pt's daughter in law has been sick recently with URI symptoms. V/S taken as listed. Pt has elevated temp at 99.9. Pt swabbed for flu and covid and found to be negative. Attempted to get urine specimen without success. Family reports pt has been eating and drinking well. Consulted with [facility] Dr. Clements who suggested ED for possible CT scan and more definitive diagnosis. Family elected to keep her home. Family plans to call back tomorrow when pt will be able to provide urine specimen for dipstick and possible culture. Pt education provided. .................... .................... .................... .................... .................... .................... .................... . [facility] Consulted: Mariely Clements .................... .................... .................... .................... .................... .................... .................... . Disposition: Judit MARIELY CLEMENTS MD [address] [place] [address],[address], [place], [address], [employer] 09/20/2024 20:05:50 11/19/2024 text/html HPI: Nurse calling for UTI symptoms for a few days. She has frequency and urgency. She denies any hematuria, no fever/ chills/ no back or abd pain, no burning sensationHPI cataracts . .................... .................... .................... .................... .................... .................... .................... . [facility] Nurse Triage Notes (Leeanne Hernandez): Reason For Request: Patient has urine pain, urgency and frequency. Denies: Unable to void greater than 5 hours Erection that will not go away after 2 hours Fall or trauma that results in urinary incontinence in the setting of pain Fall or injury that results in incontinence in the absence of pain Lower back pain either unilateral or bilateral, unable to void, painful urination -hematuria Painful urination Frequent and increased urination with flank pain Painful urination with or without fever Inability to fully empty bladder Chief Complaints: Urinary Symptoms PMH: Diabetes Mellitus Type 2, Hypertension PMH Reviewed at 11/19/2024 13:46 Allergies Reviewed at 11/19/2024 13:46 Comments: HPI reviewed [employer] Organization Information for Afshin Man [employer] Legal Name: [employer] Address: [address] [place] [address], H[place] Lopez [address], Charity Fundraiser: Darnell CHATMAN No.: [id number] [employer] POC Test Results from [employer] Urine Dipstick (17:50:39) Urine leukocytes: 2+ TRACE Urine nitrites: - NIT Urine urobilinogen: - URO Urine protein: 2+ PRO Urine pH: 5.0 pH Urine blood: 3+ BLO Urine specific gravity: 1.010 SG Urine ketones: - KET Urine bilirubin: - ALEJANDRO Urine glucose: - GLU epoc (18:02:06) pH: 7.39 pH units pCO2: 38.0 mmHg pO2: 23.1 mmHg Na: 135 mmol/L K: 4.6 mmol/L iCa: 1.17 mmol/L Cl: 95 mmol/L TCO2: 22.1 mEq/L Hct: 35 % Hb: 11.8 g/dL Glu: 201 mg/dL Lac: 1.22 mmol/L Cr: 0.58 mg/dL BUN: 16 mg/dL A mmol/L HCO3: 23.0 mmol/L .................... .................... .................... .................... .................... .................... .................... . [employer] Note From Afshin Man: This visit is for a 74-year-old female with a history including but not limited to DM type II, HTN, HLD. Family requested the visit to address one week of dysuria and increase urinary frequency. Family states they also noticed a small bump on the patient's labia. Patient denies any pain associated with the bump as well as any chest pain, shortness of breath, abdominal discomfort, flank pain, hematuria fevers, nausea, vomiting, diarrhea. No known history of urinary tract infections and patient denies any allergies. Patient presents awake and alert, in no acute distress and speaking full sentences. Her vital signs are reasonably stable and she is afebrile. Nonfocal neurological exam. Lungs are clear throughout auscultation. Abdomen is soft, nontender, nondistended. No CVA tenderness. Patient has a small marble sized cyst on her right labia, not painful to touch, no warmth, no erythema. No lower extremity edema. I straight catheterized for urine, urine is pale yellow and cloudy. Urinalysis is positive for leukocytes, protein and blood. Urine culture will be sent to [facility]. Unremarkable POC labs are uploaded. I treated with nitrofurantoin 100 mg. We discussed the diagnostic uncertainty of home visits and the risk associated with this. In this case, the patient and I felt this to be an acceptable and reasonable amount of risk given the benefit of avoiding an ED visit. I provided education on the patient's prescription as well as the importance of staying well hydrated. I instructed them to follow up with her primary care office and present the patient to the emergency department for any new or worsening severe symptoms such as chest pain, shortness of breath, severe abdominal or flank pain, high fever, altered mental status. The patient interfamily were given the opportunity to ask questions and are agreeable to this plan. [facility] Lab Orders: culture, urine: Performed urinalysis, dipstick: Performed BMP, serum or plasma: Performed .................... .................... .................... .................... .................... .................... .................... . [facility] Consulted: Cecy Kruse .................... .................... .................... .................... .................... .................... .................... . Disposition: Fulfilled Cecy Kruse MD [address] [place] [address],[address], [place], [phone], [employer] 11/19/2024 20:37:06 03/19/2025 text/html HPI: Patient with several days of worsening incontinence and foul urine. Also has fecal inc after eating. Has been seeing things in her room. ( fairies trying to steal her fan . .................... .................... .................... .................... .................... .................... .................... . [facility] Nurse Triage Notes (Belen Jackson): Chief Complaints: Urinary Symptoms PMH: Diabetes Mellitus Type 2, Hypertension PMH Reviewed at 03/19/2025 - 15:09 Allergies Reviewed at 03/19/2025 - 15:09 Comments: HPI reviewed [employer] Organization Information for Clint Alvarez Business Legal Name: [employer]. Address: [address] [place] [id number], Charity Fundraiser: Mickey CHATMAN No.: [id number] [employer] POC Test Results from Clint Alvarez Urine Dipstick (16:28:26) Urine leukocytes: 500LEU Urine nitrites: -NIT Urine urobilinogen: 0.2URO Urine protein: 30PRO Urine pH: 5.0pH Urine blood: ++BLO Urine specific gravity: 1.005SG Urine ketones: 5KET Urine bilirubin: 1BIL Urine glucose: -GLU Attachments uploaded as part of this test result can be found under Documents section. .................... .................... .................... .................... .................... .................... .................... . [employer] Note From Clint Alvarez: SC06 dispatched to address listed above for the report of a female green party with UTI like symptoms. Arrival on scene, patient was found inside with family lying semi fowlers in bed, conscious and alert, patent airway, breathing non labored speaking in complete sentences, skin WPD in no immediate distress. +/= Chest rise. -SOB, -CP, -NVD, -Trauma, +Fever. GCS 14. Abdomen soft, non tender, and non distended. No CVA tenderness present. Family is all Botswanan speaking only so press set up person services utilized. Daughter reports that the patient has been experience urinary symptoms over the past 3-4 days including increased urinary urgency and frequency, urinary burning sensation and foul smelling urine. Additionally, daughter reports increased confusion and visual hallucination that started at same time as urinary symptoms. Daughter reports that UTI about 2 months ago. Daughter denies any fever/chills, fever present for OHH. Daughter denies any difficulty breathing, chest pain, or abdominal pain. Patient vital signs obtained as noted. Urine sample obtained from patient via clean catch, urine culture obtained for [facility] send out, urine dipstick performed as noted and uploaded to [employer]. [facility] was consulted, ordered no further treatments or testing. [facility] advised that her last UTI was yeast and that patient/family will be contacted once the culture comes back, information relayed to family. Red flags were discussed with family, advised to call 911 if her condition worsens. SC06 Clear. [facility] Lab Orders: urinalysis, dipstick: Performed culture, urine: Performed .................... .................... .................... .................... .................... .................... .................... . [facility] Consulted: Juliane Driscoll .................... .................... .................... .................... .................... .................... .................... . Disposition: Fulfilled Leigh Helton MD [address] [place] [address],[address] [facility], [place], [address], [employer] 03/27/2025 13:36:52 06/14/2025 text/html ROS as noted in the HPI HPI: Pt medical customer service representative called in with complaint of foul smelling urine. RN asked about other symptoms including burning, itching, back pain or blood in the urine but pt could not state any due to confusion. RN asked the pt to come to the office for further evaluation and to order a UA but the pt can't leave the home. Pt medical customer service representative requested that someone come to the home to evaluate the pt. Pt has had these symptoms for two days. No fever noted. .................... .................... .................... .................... .................... .................... .................... . [facility] Nurse Triage Notes (Belen Jackson): Chief Complaints: Urinary Symptoms, Confusion PMH: Diabetes Mellitus Type 2, Hypertension PMH Reviewed at 06/14/2025:11 Allergies Reviewed at 06/14/2025:11 Comments: HPI reviewed [employer] Organization Information for [employer] Legal Name: [employer] Address: [address] [place] [address] Charity Fundraiser: Mickey Siddiqui MD CLIA No.: [id number] [employer] POC Test Results from [employer] Urine Dipstick (11:40:11) Urine leukocytes: 500LEU Urine nitrites: -NIT Urine urobilinogen: 0URO Urine protein: 30PRO Urine pH: 5.0pH Urine blood: ++BLO Urine specific gravity: 1.010SG Urine ketones: 15KET Urine bilirubin: 1BIL Urine glucose: -GLU Blood Glucose Measurement (11:45:04) Blood Glucose: 134mg/dL Attachments uploaded as part of this test result can be found under Documents section. iSTAT Chem8+ (12:19:02) Na: 134mEq/L K: 4.4mEq/L Cl: 99mEq/L iCa: 1.24mmol/L TCO2: 27mmol/L Glu: 115mg/dL BUN: 12mg/dL Crea: 0.5mg/dL Hct: 32% Hb: 10.9g/dL Ammol/L Cartridge Number: [id number] Attachments uploaded as part of this test result can be found under Documents section. .................... .................... .................... .................... .................... .................... .................... . [employer] Note From Rosanna Benavidez: SC6 responds to the listed address for a 75 yof w/ urinary symptoms. Upon arrival on scene, two family members and a MECHANIC FOREMAN are on scene. MECHANIC FOREMAN is caring for the pt who is found laying semi-fowlers in a hospital bed in her room. Pt is smiling and has a dreamy look in her eye. Pt does not respond when [facility] says hello, but she is tracking w/ her eyes and head as [facility] moves about the room. She is not in acute distress. No ashen or lancaster color is noted, no stridor, sonorous respirations, or increased wob are noted. Her smile is equal, slurred speech is observed, and she is not bleeding anywhere. [employer] Rep services are utilized and MECHANIC FOREMAN and family provide good PmHx. MECHANIC FOREMAN is endorsing malodorous urine and is concerned pt may still have a UTI. Pt was started on Keflex empirically by her provider x7 days ago and has one pill left for today. The prescription is 250mg BID for 7 days. MECHANIC FOREMAN and family endorse lingering and worsening s/s of UTI, including confusion , hallucinations, no sleep, not recognizing family members, and a seeming absence from reality . These s/s are not normal for her. She is bedridden and on hospice and moving her because of her L side stroke deficits and her deformed feet, which make it very difficult for her to move of be moved. MECHANIC FOREMAN is unable to tell if urine is cloudy or has blood, as pt uses pullup briefs. Family confirms twice the pt has NKDA and pt has anemia at baseline and takes an iron supplement. CG reports pt will need a straight catheterization. Pt is unable to answer questions from [facility]. She thinks CIERA is her niece and does not answer questions, speaking in a nonlinear and illogical thought pattern. Ddx: new onset dementia s/s, persistent UTI, MOLLY/kidney infection [facility] obtains vital signs and pt is [...] answer questions and needs consistent prompting to follow-through on commands. Pt is placed supine, MECHANIC FOREMAN removes briefs and pt is positioned for [...] this provider. UA shows markers of infection. [facility] contacts [facility] and discusses the above. [facility] orders a BMP to r/o signs of MOLLY. IV access is obtained in the R AC using aseptic technique and a 21ga butterfly. Blood is drawn for BMP and butterfly is removed and pressure bandage is applied w/ 2x2 and tape. [facility] orders 1G ceftriaxone IV for pt and calls in prescription for cefpodoxime to pt's pharmacy. [facility] ensures family understands the treatment and why and confirms they have no questions. A 22ga IV is obtained in the L AC using aseptic technique, locked w/ saline lock and secured. 1G ceftriaxone is reconstituted w/ 10mls sterile water and placed in to 100mls NS and administered IV over 10min. IV is flushed w/ NS post administration and IV is removed and pressure bandage applied. [facility] informs family to seek emergency care if pt develops worsening s/s, a high fever, uncontrolled n/v/d, worsening confusion, seizures, or syncope. Family confirms abx dosing and length of the course and thanks [facility] for visit. [facility] is clear. Report completed by MICHELL Benavidez [id number]. [facility] Lab Orders: culture, urine: Performed urinalysis, dipstick: Performed glucose, fingerstick, blood: Performed BMP, serum or plasma: Performed [facility] Medication Orders: ceftriaxone 1 gram solution for injection: Performed .................... .................... .................... .................... .................... .................... .................... . [facility] Consulted: Leigh Helton .................... .................... .................... .................... .................... .................... .................... . Disposition: Fulfilled Leigh Helton MD [address] [facility],[address], [place], [address], [employer] 06/15/2025 23:08:09 OBGyn Episode No OBEpisode recorded.
--- OUTSIDE RECORDS SUMMARY | 2025-06-20 18:24 | XMS_ITS | Encounter Summary ---
Author Organization [facility] Address [address] [place] [address] Encounters * [facility] Patient with several days of worsening incontinence and foul urine. Also has fecal inc after eating. Has been seeing things in her room. ( fairies trying to steal her fan . { reasonForRequest : , patientReports : , denies&quot ;:[], chiefComplaints : Urinary Symptoms , pmh : Diabetes Mellitus Type 2, Hypertension , allergies : No Known Drug Allergies , otherAl lergies : , painAssessment : , visitOutcome : ", additionalComments : HPI reviewed } FL06 dispatched to address listed above for the report of a female alliance party with UTI like symptoms. Arrival on scene, patient was found inside with family lying semi fowlers in bed, conscious and alert,patent airway, breathing non labored speaking in complete sentences, skin WPD in no immediate distress. +/= Chest rise. -SOB, -CP, -NVD, -Trauma, +Fever. GCS 14. Abdomen soft, non tender, and non distended. No CVA tenderness present. Family is all Czech speaking only so general maintenance technician services utilized. Daughter reports that the patient has been experience urinary symptoms over the past 3-4 days including increased urinary urgency and frequency, urinary burning sensation and foul smelling urine. Additionally, daughter reports increased confusion and visual hallucination that started at same time as urinary symptoms. Daughter reports that UTI about 2 months ago. Daughter denies any fever/chills, fever present for MIH. Daughter denies any difficulty breathing, chest pain, or abdominal pain. Patient vital signs obtained as noted. Urine sample obtained from patient via clean catch, urine culture obtained for [facility] send out, urine dipstick performed as noted and uploaded to [employer]. C was consulted, ordered no further treatments or testing. C advised that her last UTI was yeast and that patient/family will be contacted once the culture comes back, information relayed to family. Redflags were discussed with family, advised to call 911 if her condition worsens. SC06 Clear. ORAL_MEDICATION, EKG, POC_BLOODWORK, GLUCOSE Written by [facility] on 2025-03-19
--- OUTSIDE RECORDS SUMMARY | 2025-06-20 18:24 | XMS_ITS | Encounter Summary ---
Author Organization [employer] Address [address] [place] [address] Care Team Providers Care Carbon Capture Power Plant Engineer Name Role Phone Carl Rivera MD Primary Care Prov ider Encounter Details Date Type Department Care Team ([facility] st Contact Info) Description 06/17/2025 Telephone [facility] MEDICINE [address] [place] [address] Carl Rivera MD [address], [place] [id number] Social History Tobacco Use Types Packs/Day Years [...] encounter Miscellaneous Notes * Telephone Encounter - [facility] - 06/17/2025 1:50 PM EDT Pharmacy [facility] attempted outreach call on 06/17/25 for Medication Therapy Management (MTM) appointment; however, unable to reach patient. LVM for patient to contact [facility] at [phone]. documented in this encounter Plan of Treatment Not on file documented as of this encounter Visit Diagnoses Not on filedocumented in this encounter Additional Health Concerns Assessment Noted Time PHQ-9 Depression Total Score: 6 09/06/19 25 12:03 PM EST documented as of this encounter Care Teams Carbon Capture Power Plant Engineer Relationship Specialty Start Date End Date Carl Rivera MD [address] [place] [id number] PCP - General Internal Medicine 06/06/24 documented as of this encounter
[2025-06-20 18:34] LABS: MANUAL DIFF FLAG NO
[2025-06-20 18:46] LABS: INTERNATIONAL NORM RATIO 1.0 (0.9-1.1); Prothrombin Time 11.8 SEC (10.9-12.4)
[2025-06-20 18:51] LABS: COVID-19 Test Negative (Negative); IDNOW Serial# 55D5AD1C
[2025-06-20 18:53] LABS: IDNOW Serial# 58CA691E; Influenza B2 Negative (Negative)
[2025-06-20 18:56] LABS: Troponin-I High Sensitivity 6.7 ng/L (<3.5-17.0)
[2025-06-20 18:57] LABS: Hematocrit 28.8 % (37.0-47.0); Hemoglobin 9.6 g/dl (12.0-16.0); Imm Gran Abs Auto 0.05 X10*3/uL (0.00-0.03); Imm Gran Pct Auto 0.7 % (0.0-0.4); Lymphocytes Absolute Auto 1.8 X10*3/uL (1.2-4.9); Mean Corpuscular HGB Conc 33.3 g/dl (31.0-35.0); Mean Corpuscular Hemoglobin 32.5 pg (27.0-33.0); Mean Corpuscular Volume 97.6 fL (80.0-98.0); NRBC Abs Auto 0.000 X10*3/uL (0.0-0.012); NRBC Pct Auto 0.0 /100WBC (0.0-0.2); Platelet Count 176 X10*3/uL (160-400); Red Blood Count 2.95 X10*6/uL (4.20-5.50); White Blood Count 6.7 X10*3/uL (4.8-10.8)
[2025-06-20 19:00] LABS: Alanine Aminotransferase 17 U/L (0-31); Albumin Level 3.4 g/dL (3.5-5.0); Alkaline Phosphatase 72 U/L (39-117); Anion Gap 12 (12-20); Aspartate Amino Transferase 25 U/L (5-31); Blood Urea Nitrogen 7 mg/dL (9-16); Calcium 8.3 mg/dL (8.4-10.2); Carbon Dioxide 23 mmol/L (22-29); Chloride 106 mmol/L (96-108); Creatinine Clr Calc Pharmacy 86.1; Estimated Glomerular Filt Rate > 60; Magnesium 1.2 mg/dL (1.6-2.6); Potassium 4.7 mmol/L (3.3-5.1); Sodium 136 mmol/L (135-145); Total Protein 5.9 g/dL (6.5-8.0)
[2025-06-20] MEDS: Magnesium Sulfate/H2O 2 GM/50 ML PIGGYBACK IV ×2 (19:16→22:12)
[2025-06-20 19:21] VITALS: BP 156/47; PULSE 90; RESP 15; TEMP 37.1; O2SAT 99
--- NOTE | 2025-06-20 19:28 | PC.NURSE ---
this rn assumed care of pt, pt resting in stretcher, no acute distress noted, vss. pt medicated per mar at this time
[2025-06-20 19:45] LABS: Free T4 (Free Thyroxine) 1.29 ng/dL (0.71-1.85)
[2025-06-20 22:43] VITALS: BP 157/55; PULSE 82; RESP 20; TEMP 36.9; O2SAT 97
--- NOTE | 2025-06-21 01:20 | PM.IMHP ---
History of Present Illness Date of Service: 06/21/25 Attending physician on admission: Snow Crisostomo Chief Complaint: AMS Revenue Liaison Present Pt is a 75 yo Ukrainian speaking female with PMH DMII, HTN, HLD, CARLOS, Glaucoma, Cataracts, dementia, CVA with cognitive deficits, edentulous, former smoker and alcohol use disorder now sober, recent UTI currently on Hospice per daughter of pt's nephew that is her paid caregiver presents to ED with complaints of AMS per relative. Pt currently is nonverbal, making eye contact, able to pull blanket up to chin indicating that she is cold. Per nursing patient was able to eat jello without evidence of dysphagia. Patient appears comfortable, free of agitation or restlessness, in no apparent distress, with clear lung sounds, regular heart rate and euvolemic and no bladder retention. Skin check performed and skin is intact. Relative at the bedside did indicate that patient has been treated with 2 antibiotics for recent UTI. Patient has not improved per relative's assessment. Family denied any recent falls. Relative is the of patient's nephew and is unable to answer any questions regarding recent admission to hospice including terminal illness and/or diagnosis. Relative unable to clarify who is coming into the home currently, who wrote the orders for hospice, and would not comment on patient's advanced directives. For previous admissions, patient's advanced directives were full code. In addition relative denies any history of patient having dementia although it is listed in her problem list. Relative appeared very evasive answering any questions about current care in the home. This film writer had asked the relative to call her who is the nephew and healthcare proxy for further clarification and she declined saying not at this hour . Workup in the ED indicates CT of the head which is negative for any acute findings. EKG appears to be sinus rhythm, heart rate 82 with a QTC of 495. Even with seismic interpreter patient is not following commands, but reflexes appear normal on exam and patient is moving all extremities. Patient currently appears to be able to protect her airway. Patient has no leukocytosis and H&H is currently stable at 9.6 and 28.8 with known anemia. Electrolytes also stable and renal function at baseline with no evidence of MOLLY. Magnesium 1.2 and patient received magnesium IV in the ED for a total of 4 g. Liver function testing within normal limits. Blood glucose 106 mg/dL. Patient diagnosed with subclinical hypothyroidism and thyroid still reflects a TSH of 0.10 with a free T4 normal limits of 1.29. Patient has not yet been started on levothyroxine per current med list. Noting patient has history of CVA, dementia patient's presentation could be indicative of advancing dementia. This film writer does not believe patient is experiencing true delirium as she is not restless or agitated and is very calm but remains nonverbal. Patient being admitted for workup of altered mental status. Review of Systems Review of Systems: Family member denies any recent falls. Yes Unobtainable due to mental status (Nonverbal) [facility] Medical History CVA (cerebral vascular accident) Hyperlipidemia Glaucoma Cataracts, bilateral Hypertension Diabetes 1.5, managed as type 2 Cognitive capacity: Nonverbal Functional capacity: wheelchair bound Patient : No Social History Household Members: Family Housing: House Patient Tobacco Use Status: Tobacco use Unknown Advance Directives: No Advance Directives Information Provided: Yes Patient : No service: No Ebola Risk: Travel/Contact With Anyone From Affected Area/s: No Has Patient Experienced Ebola Symptoms: No Meds Allergies Allergy/AdvReac Type Severity Reaction Status Date / Time No Known Allergies Allergy Verified 06/20/25 16:58 Home Medications ?Medication ?Instructions ?Recorded ?Confirmed ?Last Taken ?Type alendronate 70 mg tablet 70 mg PO TH@0600 04/07/25 04/07/25 04/04/25 History ammonium lactate 12 % lotion 1 appl topical DAILY PRN Dry Skin 04/07/25 04/07/25 Unknown History aspirin 81 mg tablet,delayed 81 mg PO DAILY 04/07/25 04/07/25 04/07/25 History release atorvastatin 20 mg tablet 20 mg PO DAILY 04/07/25 04/07/25 04/07/25 History calcium 600 mg (as 1 tab PO DAILY 04/07/25 04/07/25 04/07/25 History carbonate)-vitamin D3 20 mcg (800 unit) tablet ferrous sulfate 325 mg (65 mg 325 mg PO DAILY 04/07/25 04/07/25 04/07/25 History iron) tablet insulin glargine 100 unit/mL 5 unit subcut BEDTIME 04/07/25 04/07/25 Unknown History subcutaneous solution (Lantus U-100 Insulin) latanoprost 0.005 % eye drops 1 drp ophthalmic (eye) BEDTIME 04/07/25 04/07/25 Unknown History linagliptin 5 mg-metformin ER 1 tab PO DAILY 04/07/25 04/07/25 04/07/25 History 1,000 mg tablet,extended release 24 hr (Jentadueto XR) lisinopril 40 mg tablet 40 mg PO DAILY 04/07/25 04/07/25 04/07/25 History propranolol 20 mg tablet 20 mg PO BID 04/07/25 04/07/25 04/07/25 History Physical Exam Vital Signs and Narrative: Vital Signs: Last Vital Signs Temp 98.4 F 06/20/25 22:43 Pulse 82 06/20/25 22:43 Resp 20 06/20/25 22:43 BP 157/55 H 06/20/25 22:43 Pulse Ox 97 06/20/25 22:43 O2 Del Method Room Air 06/20/25 22:43 BMI result Body Mass Index 24.6 Alert, nonverbal, appears calm and comfortable, euvolemic Neuro: Patient unable to follow commands using seismic interpreter EYES: PERRLA, sclerae nonicteric, conjunctiva pink ENT: Nares patent, oral mucosa moist, no evidence of thrush Cardiac: S1 S2 RRR, no murmur, no JVD, no edema in Lower ext Pulmonary: lungs clear to auscultation B Abdominal: BS active in all 4 quadrants, no guarding, tenderness, rebounding, abdomen soft MSK: Unable to assess strength : no CVA tenderness no bladder distension Extremities: no edema in lower extremities, PT and DP pulses palpable +2 Psych: Currently nonverbal, does not appear to be in a catatonic state Skin: No new rashes or lesions, backside is free of any new wounds Results Labs 06/21/25 02:50 06/21/25 02:50 Labs: Laboratory Results - last 24 hr 06/20/25 18:27 MCV 97.6 MCH 32.5 MCHC 33.3 RDW 13.1 Plt Count 176 MPV 10.1 Immature Gran % (Auto) 0.7 H Neut % (Auto) 62.0 Lymph % (Auto) 27.4 [place]orne % (Auto) 7.8 Eos % (Auto) 1.5 Baso % (Auto) 0.6 Lymph # (Auto) 1.8 [place] # (Auto) 0.5 Eos # (Auto) 0.1 Baso # (Auto) 0.0 Abs Immat Gran (auto) 0.05 H Absolute Neuts (auto) 4.1 Absolute Nucleated RBC 0.000 Nucleated RBC % (auto) 0.0 PT 11.8 INR 1.0 Anion Gap 12 Estim Creat Clear Calc 86.1 Estimated GFR > 60 Random Glucose 98 Calcium 8.3 L Magnesium 1.2 L* Total Bilirubin 0.4 AST 25 ALT 17 Alkaline Phosphatase 72 Troponin I High Sens 6.7 D Total Protein 5.9 L Albumin 3.4 L Beta-Hydroxybutyrate 0.20 TSH 0.10 L Free T4 1.29 COVID-19 ([facility]) Negative COVID-19 Clin Com See Note Influenza Type A ([facility]) Negative Influenza Type B ([facility]) Negative Influenza A & B Note See Note ECG Attestation: I personally reviewed and interpreted this ECG as follows: (, Sinus QTC 495) Prior ECG tracings: available for review Imaging Radiologist's Impressions: Head CT Negative for acute findings Assessment and Plan (1) Altered mental status: Qualifiers: Altered mental status type: unspecified Qualified Code(s): R41.82 - Altered mental status, unspecified Status: Acute (2) Hypomagnesemia: Status: Acute Plan Pt is a 75 yo Ukrainian speaking female with PMH DMII, HTN, HLD, CARLOS, Glaucoma, Cataracts, dementia, CVA with cognitive deficits, edentulous, former smoker and alcohol use disorder now sober, recent UTI currently on Hospice per daughter of pt's nephew that is her paid caregiver presents to ED BIBA with complaints of AMS per relative. Patient treated with 2 antibiotics for recent UTI but altered mental status has persisted. Family member does confirm that patient's with hospice but could provide no other further details regarding care that is being received in the home, organization providing hospice care or current advanced directives. This film writer unable to confirm hospice admission at this tme. Altered mental status Neurology consultation as pt is non verbal, no facial droop or apparent unilateral deficits Pt is known to fall, has hx of poor balance and requires close supervision for dementia, has been unable to walk, family using WC per nursing PT/OT/ ST ordered - pt did pass nursing bed side swallow evaluation CT head negative for acute findings MRI BRAIN/ Rule out acute CVA Family member present unable to answer questions regarding current care in the home, why pt was admitted to Hospice and by what organization CM consulted to help clarify current care situation, speak with nephew (HCP) if possible during the day Toxicology screen negative UA negative for UTI BG WNL, no Hypoxia, screen for COVID, RSV and FLU all negative Aspiration precautions ordered Avoid hypotension Hypomagnesemia MG 1.2 Pt received 4 GMS of MG in ED AM MG ordered Pt may need po MG daily History of CVA with cognitive deficits, dementia PT/OT ordered Patient now using wheelchair and has very limited mobility with history of recent falls Subclinical Hypothyroidism TSH still low Starting levothyrxoine 25 mcg daily Repeat labs in 4 weeks via PCP IDDM No evidence of hypoglycemia SSI Diabetic diet HTN Continue lisinopril Renal fx stable Glaucoma Latanaprost HLD Statin, ASA Cardiac diet CARLOS Continue iron H/H stable, no indication for transfusion Incidentally, it is noted that previous admission patient's BMI was 19 in his currently 24.6. Per family patient's appetite has been good. DVT prophylaxis: Lovenox Med rec pending Full code status (unable to reach nephew who is the healthcare proxy to establish DNR DNI if patient is currently enrolled in hospice) Quality Stroke Does the patient have a stroke diagnosis?: No Reason for No Anti-thrombotic by Day Two: N/A - Med Ordered VTE Prior VTE?: No VTE Risk Level:: Medical - moderate - high VTE Device Contraindication: N/A - Device Ordered VTE Drug Contraindication: N/A - Med Ordered
--- NOTE | 2025-06-21 02:38 | PC.NURSE ---
pt straight cath for 300ml of clear urine, pt tolerated well. purewick placed for incontinence.
[2025-06-21 02:39] LABS: Appearance Urine Clear; Glucose Urine UA Negative (Negative); PH 6.0 (5.0-9.0); Specific Gravity - Urine <= 1.005 (1.005-1.025); UMIC TRIGGER UACC YES
[2025-06-21 02:57] LABS: Hematocrit 31.9 % (37.0-47.0); Hemoglobin 10.4 g/dl (12.0-16.0); Mean Corpuscular HGB Conc 32.6 g/dl (31.0-35.0); Mean Corpuscular Hemoglobin 32.9 pg (27.0-33.0); Mean Corpuscular Volume 100.9 fL (80.0-98.0); NRBC Abs Auto 0.000 X10*3/uL (0.0-0.012); NRBC Pct Auto 0.0 /100WBC (0.0-0.2); Platelet Count 184 X10*3/uL (160-400); Red Blood Count 3.16 X10*6/uL (4.20-5.50); White Blood Count 7.0 X10*3/uL (4.8-10.8)
[2025-06-21 03:00] LABS: Cannabinoid Screen Urine Not Detected (Not Detect)
[2025-06-21 03:12] LABS: Alanine Aminotransferase 18 U/L (0-31); Albumin Level 3.8 g/dL (3.5-5.0); Alkaline Phosphatase 79 U/L (39-117); Anion Gap 12 (12-20); Aspartate Amino Transferase 21 U/L (5-31); Blood Urea Nitrogen 7 mg/dL (9-16); Calcium 8.5 mg/dL (8.4-10.2); Carbon Dioxide 19 mmol/L (22-29); Chloride 108 mmol/L (96-108); Creatinine Clr Calc Pharmacy 89.8; Estimated Glomerular Filt Rate > 60; Potassium 4.1 mmol/L (3.3-5.1); Sodium 135 mmol/L (135-145); Total Protein 6.4 g/dL (6.5-8.0)
[2025-06-21 03:12] LABS: Resp Syncy Virus RNA Qual PCR NEGATIVE (Negative); SARS COV2 PCR INHOUSE NEGATIVE (Negative)
[2025-06-21 05:51] VITALS: BP 129/57; PULSE 77; RESP 18; TEMP 37; O2SAT 99
[2025-06-21 06:34] VITALS: BMI 16.0
[2025-06-21 07:05] LABS: Magnesium 2.3 mg/dL (1.6-2.6)
[2025-06-21 07:39] LABS: Glucose, Whole Blood 94 mg/dL (60-115)
[2025-06-21 08:00] VITALS: BP 136/59; PULSE 77; RESP 16; TEMP 36.7; O2SAT 99
[2025-06-21] MEDS: 0.9 % Sodium Chloride Flush 3 ML SYRINGE IVFLUSH ×3 (09:07→20:53)
[2025-06-21 09:34] VITALS: BMI 16.8
--- NOTE | 2025-06-21 10:07 | PHA.MEDREC ---
Addendum entered by Angelique Montenegro RPh 06/21/25 10:18: [facility] reviewed Original Note: Pharmacy Consult ? Medication Reconciliation Pharmacy has completed the medication reconciliation. Spoke to patient heather Glover through seat joiner chainstitch service over the phone to confirm med list. Nephew was able to name all of patient medications from her bottles. Patient is no longer taking Alendronate 70 mg and completed Cefpodoxime 200 mg. Nephew confirmed Lantus Solostar 5 units at bedtime. Patient last had her medications yesterday afternoon.
[2025-06-21 10:23] VITALS: BMI 16.8
--- NOTE | 2025-06-21 10:33 | MHC.CLN ---
CONSULT NPO PENDING SWALLOW EVAL. QUALIFIES MODERATELY MALNOURISHED IN THE CONTEXT OF CHRONIC ILLNESS. MILD DEPLETION OF MUSCLE MASS NOTED. SIGNIFICANT WEIGHT LOSS X 2 MONTHS. SKIN WITH HEALING PI TO COCCYX. CONSIDER MNT SUPPLEMENT APPROPRIATE. FOLLOW FOR DIET ADVANCEMENT, PO INTAKE AND SKIN INTEGRITY. SEE CLINICAL NUTRITION ASSESSMENT 06/21/25.
--- NOTE | 2025-06-21 11:02 | MHC.CM.PN ---
pt active with [facility]/hospice she lives with family who are her fluid pump operator and hcp she will need amb home
[2025-06-21 11:19] LABS: Glucose, Whole Blood 94 mg/dL (60-115)
[2025-06-21 14:53] VITALS: BP 128/60; PULSE 76; RESP 16; TEMP 36.7; O2SAT 99
--- NOTE | 2025-06-21 15:44 | MHC.SL.SWA ---
Speech Pathologist Impression: Mild-moderate orophayrngeal dysphagia Risk of Aspiration Due to: AMS/Confusion, fluctuating levels of alertness Dysphasia Diet Status: Recommend START diet of Ground/Mechanical (NDD2) and Thin Liquids, with 1:1 feeding assistance; small/singular straw/cup sips, pills crushed in puree. Liquid Consistency and Strategies for Safe Swallow: Liquid Intake Recommendation: Thin Liquid Intake Strategies: Solid Food Consistency: Dietary Recommendations: Grnd/Mech Altered (NDD2) Additional Modifications to Solid Foods: Patient requires one to one feeding. Alternate liquids and solids. Cue patient for small/singular cup/straw sips. Oral Medication Intake: Crushed with Puree Please contact the pharmacy regarding appropriate crushable or liquid drug formulations that are available whenever modified delivery is recommended. Compensatory Strategies and Precautions to be Taken for Safe Swallow: Supervision While Eating and Drinking for Safe Swallow: Total Assistance (1:1) Foods to Avoid: Swallowing Recommended Treatments: Compensatory strategies; diet tolerance Recommendation for Speech: Inpatient Speech Therapy Comment: REMEDIAL MASSEUR will follow up on daily basis to monitor tolerance and education of compensatory strategies during PO intake. Frequency/Duration: M-F Daily Date Range for Service Req: Timeline to reassess: Middle School Math Teacher Clinican/Clinical Fellow: No Supervisory Statement: I have reviewed and agree with the student/clinical fellow's documentation: No Speech Language Pathologist: Lizzy Clay M.A., CCC-REMEDIAL MASSEUR
--- NOTE | 2025-06-21 15:53 | P.CNNE_ITS ---
History of Present Illness Data of Consult Service Date: 06/21/25 Primary Care Provider: Carl Crisostomo MD [facility] Reason for consult: Change in mental status 75 years old woman with underlying diagnosis of dementia was brought to hospital with change in mental status. Apparently she was not communicating when she was evaluated and scan was done that revealed an old stroke. There was no complain of seizure-like episode. No focal weakness was noted. She was not complaining of any pain. No recent cold or flu-like illness. No loss of bowel bladder control. No trauma. Review of Systems 2 Constitutional: Constitutional: Reports as per HPI [facility] Past Medical History Medical History CVA (cerebral vascular accident) Hyperlipidemia Glaucoma Cataracts, bilateral Hypertension Diabetes 1.5, managed as type 2 Social History Social History Household Members: Family Housing: House Do you presently have visiting nurse or other home services: Yes (CORPORATE DIRECTOR's) Patient Tobacco Use Status: Tobacco use Unknown Currently Displaying Signs/Symptoms of Drug Intoxication Withdrawal: No Have you been hit, kicked, punched, or otherwise hurt by someone within the past year? If so, by whom?: No Do you feel safe in your current relationship?: No Current Relationship Is there a partner from a previous relationship who is making you feel unsafe now?: No Are you made to feel afraid or neglected: No Advance Directives: No Advance Directives Information Provided: Yes Do you have a plan to hurt others: No Plan Recently lost weight without trying: No How much weight loss: Not applicable Eating poorly because of decreased appetite: No Nutrition screen score: 0 Nutrition Risks: No Nutritional Risk Patient : No : No Poor oral hygiene: No service: No Travel History Ebola Risk: Travel/Contact With Anyone From Affected Area/s: No Has Patient Experienced Ebola Symptoms: No Meds Allergies Allergy/AdvReac Type Severity Reaction Status Date / Time No Known Allergies Allergy Verified 06/20/25 16:58 Active Medications: Current Medications Acetaminophen (Acetaminophen 325 Mg Tablet) 650 mg PO Q6H PRN PRN Reason: Pain, Mild 1-3,fever,headache Albuterol/Ipratropium (Albuterol/Iprat 2.5/0.5mg 3 Ml Ampul.Neb) 3 ml INHALE Q4H PRN PRN Reason: Shortness of Breath/Wheezing Aspirin (Aspirin Enteric Coated 81 Mg Tablet.Dr) 81 mg PO DAILY [facility] Atorvastatin Calcium (Atorvastatin Calcium 20 Mg Tablet) 20 mg PO DAILY [facility] Calcium Carbonate (Calcium Carbonate 750 Mg Tab.Chew) 750 mg PO Q4H PRN PRN Reason: Heartburn Dextrose (Dextrose 50 % 25 Gm/50 Ml Syringe) 25 gm IVPUSH Q15M PRN; Protocol PRN Reason: per Hypoglycemia Standing Ord. Enoxaparin Sodium (Enoxaparin Sodium 40 Mg/0.4 Ml Syringe) 40 mg SUBCUT Q24H [facility] Last Admin: 06/21/25 09:07 Dose: 40 mg Famotidine (Famotidine 20 Mg Tablet) 20 mg PO BID [facility] Glucose (Glucose Gel 15 Gm Gel..Gram.) 15 gm PO Q15M PRN; Protocol PRN Reason: per Hypoglycemia Standing Ord. Ceftriaxone Sodium 1 gm/ (Sodium Chloride) 50 mls @ 100 mls/hr IV Q24H [facility] Stop: 06/26/25 11:59 Last Infusion: 06/21/25 13:34 Dose: Infused Insulin Glargine (Insulin Glargine,Hum.Rec.Anlog 100 Unit/Ml 10 Ml Vial) 5 unit SUBCUT BEDTIME [facility] Insulin Human Lispro (Insulin Lispro 100 Unit/Ml 3 Ml Vial) 0 unit SUBCUT QIDACHS [facility]; Protocol Last Admin: 06/21/25 11:22 Dose: Not Given Lactic Acid (Ammonium Lactate 12 % Lotion 226 Gm Bottle) 1 appl TOPICAL DAILY PRN; Protocol PRN Reason: Dry Skin Latanoprost (Latanoprost 0.005 % Ophth Bree 2.5 Ml Drops) 1 drop EYE-BOTH BEDTIME [facility] Levothyroxine Sodium (Levothyroxine Sodium 25 Mcg Tablet) 25 mcg PO DAILY@0600 [facility] Last Admin: 06/21/25 06:40 Dose: 25 mcg Lisinopril (Lisinopril 40 Mg Tablet) 40 mg PO DAILY [facility]; Protocol Magnesium Hydroxide (Milk Of Magnesia 30 Ml Oral.Susp) 30 ml PO DAILY PRN PRN Reason: Constipation Melatonin (Melatonin 3 Mg Tablet) 6 mg PO BEDTIME PRN PRN Reason: Insomnia Mirtazapine (Mirtazapine 15 Mg Tablet) 15 mg PO BEDTIME [facility] Ondansetron HCl (Ondansetron Hcl 4 Mg/2 Ml Vial) 4 mg IVPUSH Q8H PRN PRN Reason: Nausea and Vomiting Polyethylene Glycol (Polyethylene Glycol 3350 17 Gm Powd.Pack) 17 gm PO DAILY PRN PRN Reason: Constipation Propranolol HCl (Propranolol Hcl 20 Mg Tablet) 20 mg PO BID [facility]; Protocol Senna (Sennosides 8.6 Mg Tablet) 17.2 mg PO BEDTIME [facility] Sodium Chloride (0.9 % Sodium Chloride Flush 3 Ml Syringe) [facility] Last Admin: 06/21/25 09:07 Dose: 3 ml Home Medications ?Medication ?Instructions ?Recorded ?Confirmed ?Last Taken ?Type ammonium lactate 12 % lotion 1 appl topical DAILY PRN Dry Skin 04/07/25 06/21/25 Unknown History aspirin 81 mg tablet,delayed 81 mg PO DAILY 04/07/25 1 04/07/25 History release atorvastatin 20 mg tablet 20 mg PO DAILY 04/07/2505/2404/07/25 History calcium 600 mg (as 1 tab PO DAILY 04/07/2505/2404/07/25 History carbonate)-vitamin D3 20 mcg (800 unit) tablet ferrous sulfate 325 mg (65 mg 325 mg PO DAILY 04/07/25 06/21/25 04/07/25 History iron) tablet insulin glargine 100 unit/mL 5 unit subcut BEDTIME 06/21/25 Unknown History subcutaneous solution (Lantus U-100 Insulin) latanoprost 0.005 % eye drops 1 drp ophthalmic (eye) B EDTIME 04/07/25 06/21/25 Unknown History linagliptin 5 mg-metformin ER 1 tab PO DAILY 04/07/25 06/21/25 04/07/25 History 1,000 mg tablet,extended release 24 hr (Jentadueto XR) lisinopril 40 mg tablet 40 mg PO DAILY 04/07/2505/2404/07/25 History propranolol 20 mg tablet 20 mg PO BID 04/07/2504/07/25 History famotidine 20 mg tablet 20 mg PO BID 06/21/25 Unknown History mirtazapine 15 mg tablet 15 mg PO BEDTIME 06/21/25 Unknown History tramadol 50 mg tablet 50 mg PO TID PRN Pain (Scale Score 06/21/25 06/21/25 Unknown History 1-3) Physical Exam 2 Vital Signs: Vital Signs: Last Vital Signs Temp 98.0 F 06/21/25 14:53 Pulse 76 06/21/25 14:53 Resp 16 06/21/25 14:53 BP 128/60 06/21/25 14:53 Pulse Ox 99 06/21/25 14:53 O2 Del Method Room Air 06/21/25 14:53 BMI result Body Mass Index 16.8 Neuro: Other: Mental Status: She is alert and awake with normal spontaneity and fluency of speech though she did not speak Malay. She followed commands. She was answering questions. Cranial Nerves: Face was symmetrical. Visual clarke are full. Extraocular muscles were intact. Motor: No focal arm or leg weakness. Deep tendon reflexes are absent. Plantars were flexor. Extrapyramidal: Full facial expressions and blinking. No rigidity. Movements are appropriate with no tremor or abnormality. Speech: Normal; no dysarthria or tremor. Results Labs 06/21/25 02:50 06/21/25 02:50 Labs: Short CBC 06/20/25 06/21/25 Range/Units 18:27 02:50 WBC 6.7 7.0 (4.8-10.8) X10*3/uL Hgb 9.6 L 10.4 L (12.0-16.0) g/dl Hct 28.8 L 31.9 L (37.0-47.0) % Plt Count 176 184 (160-400) X10*3/uL BMP 06/20/25 06/21/25 18:27 02:50 Sodium 136 135 Potassium 4.7 D 4.1 Chloride 106 108 Carbon Dioxide 23 19 L BUN 7 L 7 L Creatinine 0.48 L 0.46 L Calcium 8.3 L 8.5 Cardiac Enzymes 06/20/25 06/21/25 Range/Units 18:27 02:50 Total Creatine Kinase 156 H 139 (26-140) U/L Liver Function 06/20/25 06/21/25 Range/Units 18:27 02:50 Total Bilirubin 0.4 0.5 (0.0-1.0) mg/dL AST 25 21 (5-31) U/L ALT 17 18 (0-31) U/L Alkaline Phosphatase 72 79 (39-117) U/L Albumin 3.4 L 3.8 (3.5-5.0) g/dL Urine 06/21/25 Range/Units 02:30 Urine Color Yellow Urine Appearance Clear Urine pH 6.0 (5.0-9.0) Ur Specific [place] <= 1.005 (1.005-1.025) Urine Protein Negative (Neg-Trace) mg/dL Urine Glucose (UA) Negative (Negative) mg/dL CT head without contrast Comparison: CT/SR - CT HEAD/BRAIN WO IV CON - 04/07/25 12:59 EDT Findings: No intra-axial mass, midline shift, hydrocephalus, or acute hemorrhage. Age appropriate cerebral volume loss. Patchy low-density within the periventricular and subcortical white matter. The visualized paranasal sinuses and mastoid air cells are normal. The orbits are within normal limits. There is no acute fracture. IMPRESSION: 1. No acute intracranial findings. Assessment and Plan (1) Altered mental status: Qualifiers: Altered mental status type: unspecified Qualified Code(s): R41.82 - Altered mental status, unspecified Status: Acute 75 years old woman brought to hospital with change in mental status. Though in emergency room she was not talking now she was and following simple commands. There was no focal weakness. Her head CT revealed an old left frontal ischemic infarct. Possibilities would include another infarct or seizure disorder. Noncontrast MRI of brain and EEG are recommended. Procedures Date of Service Date of Service: 06/21/25
[2025-06-21 16:10] LABS: Glucose, Whole Blood 104 mg/dL (60-115)
--- NOTE | 2025-06-21 16:39 | PM.EVENT ---
Event Note Date of Service: 06/21/25 Event Note: Patient seen examined at bedside this morning with POA at bedside, POA states that patient was made hospice after last admission to hospital about 1 1/2 month ago. Patient will be able to feed herself, however requires cues. Mentions that she was recently treated for UTI, however had no improvement and was suggested on coming to the facility. At baseline patient is able to communicate, not aggressive or agitated. UA showing small leukocyte esterase, however had recently completed antibiotics in the outpatient setting. Patient at this time states that she is feeling okay. Time Spent With Patient Time: Total time managing care of this patient today ____ minutes.
[2025-06-21 19:12] VITALS: PULSE 89; RESP 16; TEMP 36.6; O2SAT 97
[2025-06-21 19:23] VITALS: BP 141/65; PULSE 89; RESP 18; TEMP 36.2; O2SAT 97
[2025-06-21 19:59] LABS: Glucose, Whole Blood 167 mg/dL (60-115)
[2025-06-21] MEDS: Insulin Glargine,Hum.rec.anlog 100 UNIT/ML 10 ML VIAL SUBCUT (20:52)
[2025-06-21 20:53] VITALS: BP 157/67; PULSE 96
[2025-06-21] MEDS: Latanoprost 0.005 % Ophth Sol 2.5 ML DROPS 1 DROP EYE-BOTH (20:53)
[2025-06-22 03:26] VITALS: BP 135/60; PULSE 77; RESP 18; TEMP 36.2; O2SAT 97
[2025-06-22 08:00] VITALS: BP 135/56; PULSE 72; RESP 12; TEMP 36.4; O2SAT 99
[2025-06-22 08:16] LABS: Glucose, Whole Blood 91 mg/dL (60-115)
[2025-06-22 10:00] VITALS: BP 137/63; PULSE 78; O2SAT 98
[2025-06-22 10:01] VITALS: BP 137/63; PULSE 78
[2025-06-22] MEDS: 0.9 % Sodium Chloride Flush 3 ML SYRINGE IVFLUSH (10:02)
[2025-06-22] MEDS: Aspirin Enteric Coated 81 MG TABLET.DR PO (10:06)
[2025-06-22 11:22] LABS: Glucose, Whole Blood 108 mg/dL (60-115)
--- NOTE | 2025-06-22 14:22 | P.PNIM_ITS ---
Subjective Subjective Date of Service: 06/22/25 Interval History: This history was taken in Slovenian from the patient. No complaints though hx limited by dementia. Per family, hallucinations have resolved. Review of Systems Review of Systems: Yes Unobtainable due to mental status Physical Exam 2 Vital Signs: Vital Signs: Last Vital Signs Temp 97.6 F 06/22/25 08:00 Pulse 78 06/22/25 10:01 Resp 12 06/22/25 08:00 BP 137/63 06/22/25 10:01 Pulse Ox 98 06/22/25 10:00 O2 Del Method Room Air 06/22/25 10:00 BMI result Body Mass Index 16.8 Gen: in no acute distress HEENT: sclera anicteric, moist mucus membranes Neck: supple Lungs: clear to auscultation bilaterally Heart: regular rate and rhythm, no murmurs Abd: soft, non-tender, non-distended Ext: no edema Skin: warm/well-perfused Neuro: alert and oriented to self, moving all extremities Psych: impaired insight Objective Data Active Medications Acetaminophen (Acetaminophen 325 Mg Tablet) 650 mg PO Q6H PRN PRN Reason: Pain, Mild 1-3,fever,headache Albuterol/Ipratropium (Albuterol/Iprat 2.5/0.5mg 3 Ml Ampul.Neb) 3 ml INHALE Q4H PRN PRN Reason: Shortness of Breath/Wheezing Aspirin (Aspirin Enteric Coated 81 Mg Tablet.) 81 mg PO DAILY [facility] Last Admin: 06/22/25 10:06 Dose: 81 mg Documented By: CYNTHIA Atorvastatin Calcium (Atorvastatin Calcium 20 Mg Tablet) 20 mg PO DAILY [facility] Last Admin: 06/22/25 10:01 Dose: 20 mg Documented By: CYNTHIA Calcium Carbonate (Calcium Carbonate 750 Mg Tab.Chew) 750 mg PO Q4H PRN PRN Reason: Heartburn Dextrose (Dextrose 50 % 25 Gm/50 Ml Syringe) 25 gm IVPUSH Q15M PRN; Protocol PRN Reason: per Hypoglycemia Standing Ord. Enoxaparin Sodium (Enoxaparin Sodium 40 Mg/0.4 Ml Syringe) 40 mg SUBCUT Q24H [facility] Last Admin: 06/22/25 10:02 Dose: 40 mg Documented By: CYNTHIA Famotidine (Famotidine 20 Mg Tablet) 20 mg PO BID [facility] Last Admin: 06/22/25 10:01 Dose: 20 mg Documented By: CYNTHIA Glucose (Glucose Gel 15 Gm Gel..Gram.) 15 gm PO Q15M PRN; Protocol PRN Reason: per Hypoglycemia Standing Ord. Ceftriaxone Sodium 1 gm/ (Sodium Chloride) 50 mls @ 100 mls/hr IV Q24H [facility] Stop: 06/26/25 11:59 Last Infusion: 06/22/25 13:00 Dose: Infused Documented By: CYNTHIA Insulin Glargine (Insulin Glargine,Hum.Rec.Anlog 100 Unit/Ml 10 Ml Vial) 5 unit SUBCUT BEDTIME [facility] Last Admin: 06/21/25 20:52 Dose: 5 unit Documented By: TIGRE Insulin Human Lispro (Insulin Lispro 100 Unit/Ml 3 Ml Vial) 0 unit SUBCUT QIDACHS [facility]; Protocol Last Admin: 06/22/25 12:18 Dose: Not Given Documented By: CYNTHIA Non-Admin Reason: No Insulin Coverage Lactic Acid (Ammonium Lactate 12 % Lotion 226 Gm Bottle) 1 appl TOPICAL DAILY PRN; Protocol PRN Reason: Dry Skin Latanoprost (Latanoprost 0.005 % Ophth Bree 2.5 Ml Drops) 1 drop EYE-BOTH BEDTIME [facility] Last Admin: 06/21/25 20:53 Dose: 1 drop Documented By: TIGRE Lisinopril (Lisinopril 40 Mg Tablet) 40 mg PO DAILY [facility]; Protocol Last Admin: 06/22/25 10:01 Dose: 40 mg Documented By: CYNTHIA Magnesium Hydroxide (Milk Of Magnesia 30 Ml Oral.Susp) 30 ml PO DAILY PRN PRN Reason: Constipation Melatonin (Melatonin 3 Mg Tablet) 6 mg PO BEDTIME PRN PRN Reason: Insomnia Mirtazapine (Mirtazapine 15 Mg Tablet) 15 mg PO BEDTIME [facility] Last Admin: 06/21/25 20:54 Dose: 15 mg Documented By: TIGRE Ondansetron HCl (Ondansetron Hcl 4 Mg/2 Ml Vial) 4 mg IVPUSH Q8H PRN PRN Reason: Nausea and Vomiting Polyethylene Glycol (Polyethylene Glycol 3350 17 Gm Powd.Pack) 17 gm PO DAILY PRN PRN Reason: Constipation Propranolol HCl (Propranolol Hcl 20 Mg Tablet) 20 mg PO BID [facility]; Protocol Last Admin: 06/22/25 10:01 Dose: 20 mg Documented By: CYNTHIA Senna (Sennosides 8.6 Mg Tablet) 17.2 mg PO BEDTIME [facility] Last Admin: 06/21/25 20:54 Dose: 17.2 mg Documented By: TIGRE Sodium Chloride (0.9 % Sodium Chloride Flush 3 Ml Syringe) 3 ml IVFLUSH QSHIFT [facility] Last Admin: 06/22/25 10:02 Dose: 3 ml Documented By: CYNTHIA Labs 06/21/25 02:50 06/21/25 02:50 Labs: Laboratory Results - last 24 hr 06/21/25 06/21/25 06/22/25 16:05 19:55 08:09 POC Glucose 104 167 H 91 06/22/25 11:19 POC Glucose 108 Assessment and Plan (1) UTI (urinary tract infection): Status: Acute Plan d2, 75yo F with DM2, HTN, HLD, CARLOS, glaucoma, cataracts, dementia, CVA, former tobacco + EtOH use who was on home hospice who came in with altered mental status with hallucinations dementia with hallucinations - likely progressive though will treat UTI; will use prn low-dose antipsychotic as needed; discussed with family - she does NOT have subclinical hypothyroidism; will d/c levothyroxine UTI - ceftriaxone 06/21-, follow UCx mod pr/cielo malnutrition - supplements hypoMg: repleted HLD, prior CVA: ASA, statin DM2: basal-bolus insulin HTN: lisinopril, propranolol glaucoma: latanoprost CARLOS: Fe VTE ppx: enoxaparin dispo: needs 24/7 care per PT/OT In my clinical judgment, the patient requires continued inpatient hospitalization for the following reasons: IV ABX, hallucinations Total time managing care of this patient today: 35 minutes. Quality Stroke Does the patient have a stroke diagnosis?: No Reason for No Anti-thrombotic by Day Two: N/A - Med Ordered VTE Prior VTE?: No VTE Risk Level:: Medical - moderate - high VTE Device Contraindication: N/A - Device Ordered VTE Drug Contraindication: N/A - Med Ordered
--- NOTE | 2025-06-22 15:11 | MHC.CM.PN ---
Addendum entered by Di Ralph 06/22/25 15:55: [facility] REPOR[facility] 1800 HOURS IS EARLIEST POSSIBLE TRANSPORT Original Note: CM MET WITH PTS SON AND DAUGHTER AT BEDSIDE WITH A AERIAL PHOTOGRAPH INTERPRETER TWICE INITIALLY FAMILY WAS STATING THEY WANTED ALL TREATMENT AND WERE UNSURE IF THE PLAN WOULD BE TO RESUME HOSPICE SERVICES AT DC THEY LATER INDICATED THEY WOULD LIKE TO TAKE PT HOME AND ALREADY SPOKE TO C DME IS STILL AT THE HOME, [facility] WILL SIGN PT BACK ONTO SERVICES ON TUESDAY FAMILY CONFIRMS THEY HAVE ALL OF THE MEDICATION AND EQUIPMENT NEEDED BLS TRANSPORT WILL BE ARRANGED ONCE DC IS COMPLETE
[2025-06-22 15:21] VITALS: BP 140/65; PULSE 66; RESP 16; TEMP 36.3; O2SAT 98
--- NOTE | 2025-06-22 15:21 | PM.DS ---
DS: Providers Provider Date of Service: 06/22/25 Date of admission: 06/21/25 01:18 Date of discharge: 06/22/25 Primary care physician: Carl Crisostomo MD Consults: 06/21/25 02:10 Consult to Case Management Routine Comment: need follow up with nephew (HCP) regarding care 06/21/25 02:26 Consult to Neurology Routine Consulting Provider: [facility] Reason for consultation: Altered mental status, hx CVA dementia, r/o acute stroke vs adv dementia Has provider been notified: No DS: Diagnosis Discharge Diagnosis (1) UTI (urinary tract infection): Status: Acute (2) Dementia: Status: Acute (3) Hallucinations: Status: Acute DS: Summary Hospital Course Hospital Course: From the history and physical by the admitting hospitalist, Avril Fair, 06/20/25: Pt is a 75 yo Upper Sorbian speaking female with PMH DMII, HTN, HLD, CARLOS, Glaucoma, Cataracts, dementia, CVA with cognitive deficits, edentulous, former smoker and alcohol use disorder now sober, recent UTI currently on Hospice per daughter of pt's nephew that is her paid caregiver presents to ED with complaints of AMS per relative. Pt currently is nonverbal, making eye contact, able to pull blanket up to chin indicating that she is cold. Per nursing patient was able to eat jello without evidence of dysphagia. Patient appears comfortable, free of agitation or restlessness, in no apparent distress, with clear lung sounds, regular heart rate and euvolemic and no bladder retention. Skin check performed and skin is intact. Relative at the bedside did indicate that patient has been treated with 2 antibiotics for recent UTI. Patient has not improved per relative's assessment. Family denied any recent falls. Relative is the of patient's nephew and is unable to answer any questions regarding recent admission to hospice including terminal illness and/or diagnosis. Relative unable to clarify who is coming into the home currently, who wrote the orders for hospice, and would not comment on patient's advanced directives. For previous admissions, patient's advanced directives were full code. In addition relative denies any history of patient having dementia although it is listed in her problem list. Relative appeared very evasive answering any questions about current care in the home. This internal communications writer had asked the relative to call her who is the nephew and healthcare proxy for further clarification and she declined saying not at this hour . Workup in the ED indicates CT of the head which is negative for any acute findings. EKG appears to be sinus rhythm, heart rate 82 with a QTC of 495. Even with consulting services project manager patient is not following commands, but reflexes appear normal on exam and patient is moving all extremities. Patient currently appears to be able to protect her airway. Patient has no leukocytosis and H&H is currently stable at 9.6 and 28.8 with known anemia. Electrolytes also stable and renal function at baseline with no evidence of MOLLY. Magnesium 1.2 and patient received magnesium IV in the ED for a total of 4 g. Liver function testing within normal limits. Blood glucose 106 mg/dL. Patient diagnosed with subclinical hypothyroidism and thyroid still reflects a TSH of 0.10 with a free T4 normal limits of 1.29. Patient has not yet been started on levothyroxine per current med list. Noting patient has history of CVA, dementia patient's presentation could be indicative of advancing dementia. This internal communications writer does not believe patient is experiencing true delirium as she is not restless or agitated and is very calm but remains nonverbal. Patient being admitted for workup of altered mental status. She was admitted to the medical-surgical unit. She was started on ceftriaxone to cover for UTI. Mental status returned to baseline and the patient's family elected to bring her back home on hospice. She was prescirbed 6 days of cefuroxime for UTI. Otherwise, she will continue home medications. Correction to HPI: low TSH with normal free T4 reflects subclinical hyperthyroidism, not hypothyroidism. She was not started on levothyroxine. Time Attestation Discharge Coordination Time (in mins): 45 Quality: Safe Use of Opioids Does Pt have an Active Cancer Diagnosis on the Problem List?: No Quality: Stroke Does the patient have a stroke diagnosis?: No Physical Exam Vital Signs: Vital Signs: Last Vital Signs Temp 97.6 F 06/22/25 08:00 Pulse 78 06/22/25 10:01 Resp 12 06/22/25 08:00 BP 137/63 06/22/25 10:01 Pulse Ox 98 06/22/25 10:00 O2 Del Method Room Air 06/22/25 10:00 BMI result Body Mass Index 16.8 Gen: in no acute distress HEENT: sclera anicteric, moist mucus membranes Neck: supple Lungs: clear to auscultation bilaterally Heart: regular rate and rhythm, no murmurs Abd: soft, non-tender, non-distended Ext: no edema Skin: warm/well-perfused Neuro: alert and oriented to self, moving all extremities Psych: impaired insight DS: Data Data Completed and Pending Completed studies during hospitalization [Text1]: Laboratory Results WBC 7.0 X10*3/uL (4.8-10.8) 06/21/25 02:50 RBC 3.16 X10*6/uL (4.20-5.50) L 06/21/25 02:50 Hgb 10.4 g/dl (12.0-16.0) L 06/21/25 02:50 Hct 31.9 % (37.0-47.0) L 06/21/25 02:50 MCV 100.9 fL (80.0-98.0) H 06/21/25 02:50 MCH 32.9 pg (27.0-33.0) 06/21/25 02:50 MCHC 32.6 g/dl (31.0-35.0) 06/21/25 02:50 RDW 13.2 % (11.0-16.0) 06/21/25 02:50 Plt Count 184 X10*3/uL (160-400) 06/21/25 02:50 MPV 9.9 fL (9.4-12.3) 06/21/25 02:50 Immature Gran % (Auto) 0.7 % (0.0-0.4) H 06/20/25 18:27 Neut % (Auto) 62.0 % (45-73) 06/20/25 18:27 Lymph % (Auto) 27.4 % (20-40) 06/20/25 18:27 Miner % (Auto) 7.8 % (2-11) 06/20/25 18:27 Eos % (Auto) 1.5 % (0-4) 06/20/25 18:27 Baso % (Auto) 0.6 % (0-2) 06/20/25 18:27 Lymph # (Auto) 1.8 X10*3/uL (1.2-4.9) 06/20/25 18:27 Miner # (Auto) 0.5 X10*3/uL (0.1-1.2) 06/20/25 18:27 Eos # (Auto) 0.1 X10*3/uL (0.0-0.4) 06/20/25 18: Baso # (Auto) 0.0 X10*3/uL (0.0-0.2) 06/20/25 18:27 Abs Immat Gran (auto) 0.05 X10*3/uL (0.00-0.03) H 06/20/25 18: Absolute Neuts (auto) 4.1 x10*3/uL (2.0-8.3) 06/20/25 18: Absolute Nucleated RBC 0.000 X10*3/uL (0.0-0.012) 06/21/25 02:50 Nucleated RBC % (auto) 0.0 /100WBC (0.0-0.2) 06/21/25 02:50 PT 11.8 SEC (10.9-12.4) 06/20/25 18: INR 1.0 (0.9-1.1) 06/20/25 18:27 Sodium 135 mmol/L (135-145) 06/21/25 02:50 Potassium 4.1 mmol/L (3.3-5.1) 06/21/25 02:50 Chloride 108 mmol/L (96-108) 06/21/25 02:50 Carbon Dioxide 19 mmol/L (22-29) L 06/21/25 02:50 Anion Gap 12 (12-20) 06/21/25 02:50 BUN 7 mg/dL (9-16) L 06/21/25 02:50 Creatinine 0.46 mg/dL (0.5-1.4) L 06/21/25 02:50 Estim Creat Clear Calc 89.8 06/21/25 02:50 Estimated GFR > 60 06/21/25 02:50 POC Glucose 108 mg/dL (60-115) 06/22/25 11:19 Random Glucose 101 mg/dL (60-115) 06/21/25 02:50 Calcium 8.5 mg/dL (8.4-10.2) 06/21/25 02:50 Magnesium 2.3 mg/dL (1.6-2.6) 06/21/25 02:50 Total Bilirubin 0.5 mg/dL (0.0-1.0) 06/21/25 02:50 AST 21 U/L (5-31) 06/21/25 02:50 ALT 18 U/L (0-31) 06/21/25 02:50 Alkaline Phosphatase 79 U/L (39-117) 06/21/25 02:50 Total Creatine Kinase 139 U/L (26-140) 06/21/25 02:50 Troponin I High Sens 6.7 ng/L (<3.5-17.0) D 06/20/25 18:27 Total Protein 6.4 g/dL (6.5-8.0) L 06/21/25 02:50 Albumin 3.8 g/dL (3.5-5.0) 06/21/25 02:50 Beta-Hydroxybutyrate 0.20 mmol/L (0.02-0.27) 06/20/25 18:27 TSH 0.10 uIU/mL (0.32-4.0) L 06/20/25 18:27 Free T4 1.29 ng/dL (0.71-1.85) 06/20/25 18:27 Urine Color Yellow 06/21/25 02:30 Urine Appearance Clear 06/21/25 02:30 Urine pH 6.0 (5.0-9.0) 06/21/25 02:30 Ur Specific Andrews <= 1.005 (1.005-1.025) 06/21/25 02:30 Urine Protein Negative mg/dL (Neg-Trace) 06/21/25 02:30 Urine Glucose (UA) Negative mg/dL (Negative) 06/21/25 02:30 Urine Ketones Negative mg/dL (Negative) 06/21/25 02:30 Urine Blood Negative (Negative) 06/21/25 02:30 Urine Nitrite Negative (Negative) 06/21/25 02:30 Ur Leukocyte Esterase Trace (Negative) H 06/21/25 02:30 Urine RBC 0-2 /HPF (0-2) 06/21/25 02:30 Urine WBC 0-5 /HPF (0-5) 06/21/25 02:30 Ur Squamous Epith Cells 0-2 /HPF (0-2) 06/21/25 02:30 Urine Bacteria None Seen (None Seen) 06/21/25 02:30 Hyaline Casts 0-2 /LPF (0-2) 06/21/25 02:30 Urine Opiates Screen Not Detected (Not Detect) 06/21/25 02:30 Ur Buprenorphine Scrn Not Detected ng/mL (Not Detect) 06/21/25 02:30 Ur Oxycodone Screen Not Detected ng/mL (Not Detect) 06/21/25 02:30 Urine Methadone Screen Not Detected ng/mL (Not Detect) 06/21/25 02:30 Urine Fentanyl Screen Not Detected (Not Detect) 06/21/25 02:30 Ur Barbiturates Screen Not Detected (Not Detect) 06/21/25 02:30 Ur Phencyclidine Scrn Not Detected (Not Detect) 06/21/25 02:30 Ur Amphetamines Screen Not Detected (Not Detect) 06/21/25 02:30 U Benzodiazepines Scrn Not Detected (Not Detect) 06/21/25 02:30 Urine Cocaine Screen Not Detected (Not Detect) 06/21/25 02:30 U Marijuana (THC) Screen Not Detected (Not Detect) 06/21/25 02:30 COVID-19 (SATYA) Negative (Negative) 06/20/25 18:27 COVID-19 Clin Com See Note 06/20/25 18:27 Influenza Type A ([facility]) Negative (Negative) 06/20/25 18:27 Influenza Type A (PCR) NEGATIVE (Negative) 06/21/25 02:30 Influenza Type B ([facility]) Negative (Negative) 06/20/25 18:27 Influenza Type B (PCR) NEGATIVE (Negative) 06/21/25 02:30 Influenza A & B Note See Note 06/20/25 18:27 RSV RNA Qual (PCR) NEGATIVE (Negative) 06/21/25 02:30 SARS-CoV-2 RNA (RT-PCR) NEGATIVE (Negative) 06/21/25 02:30 Discharge Plan Discharge Anticipated Discharge Date/Time: 06/22/25 15:19 Patient Disposition: Hospice - Home Discharge Diagnosis: dementia with hallucinations possible UTI Referrals: Guillermo TRUJILLO [Outside] Carl Rivera MD [Primary Care Provider, Medical] - 1 Week Discharge Medications: New cefuroxime axetil 500 mg tablet 500 mg PO BID Qty: 12 0RF Continued latanoprost 0.005 % Drops 1 drp OPHTHALMIC (EYE) BEDTIME insulin glargine [Lantus U-100 Insulin] 100 unit/mL Solution 5 unit SUBCUT BEDTIME ammonium lactate 12 % lotion 1 appl topical DAILY PRN (Reason: Dry Skin) aspirin 81 mg Tablet,Delayed Release (Dr/Ec) 81 mg PO DAILY propranolol 20 mg Tablet 20 mg PO BID Jentadueto XR 5-1,000 mg Tablet, Ir - Er, Biphasic 24hr 1 tab PO DAILY atorvastatin 20 mg Tablet 20 mg PO DAILY ferrous sulfate 325 mg (65 mg iron) Tablet 325 mg PO DAILY lisinopril 40 mg Tablet 40 mg PO DAILY calcium carbonate-vitamin D3 600 mg-20 mcg (800 unit) tablet 1 tab PO DAILY famotidine 20 mg tablet 20 mg PO BID mirtazapine 15 mg tablet 15 mg PO BEDTIME tramadol 50 mg tablet 50 mg PO TID PRN (Reason: Pain (Scale Score 1-3)) Discharge Orders: Discharge Order (Routine); Ordered 06/22/25 Ordered By: Rich Briones Diet: Advance to usual diet Activity on Discharge: As tolerated Stand Alone Forms: Patient Portal Discharge page Print Language: Upper Sorbian Care Plan Goals: palliation of suffering Health Concerns: dementia with hallucinations possible UTI Plan of Treatment: resume all meds cefuroxime 500 mg twice daily for 6 days Please follow up with your primary care doctor within 1 week. Return to the hospital if you experience recurrent or worsening symptoms. Assessment: See Discharge Summary.
[2025-06-22 16:23] LABS: Glucose, Whole Blood 115 mg/dL (60-115)
[2025-06-22 18:15] VITALS: BP 136/62; PULSE 75; RESP 14; TEMP 36.2; O2SAT 99
== END 2025-06-22 18:27 | disposition hospice, home (50) | DRG 690 ==
LOC: HO.ED 06-21 01:11 → HO.EDOVER 06-21 01:23 → HO.S3 06-21 05:50
PROVIDERS: Internal Medicine; Student in an Organized Health Care Education/Training Program; Admitting Provider Nurse Practitioner Family; Emergency Provider Student in an Organized Health Care Education/Training Program; PCP Internal Medicine; Visit Provider Family Medicine
DX: N39.0 Urinary tract infection, site not specified (principal); E44.0 Moderate protein-calorie malnutrition; F03.92 Unspecified dementia, unspecified severity, with psychotic disturbance; F10.91 Alcohol use, unspecified, in remission; H40.9 Unspecified glaucoma; E83.42 Hypomagnesemia; I10 Essential (primary) hypertension; E78.5 Hyperlipidemia, unspecified; D50.9 Iron deficiency anemia, unspecified; E11.9 Type 2 diabetes mellitus without complications; E03.8 Other specified hypothyroidism; Z20.822 Contact with and (suspected) exposure to COVID-19; I69.319 Unspecified symptoms and signs involving cognitive functions following cerebral infarction; Z68.24 Body mass index [BMI] 24.0-24.9, adult; Z87.440 Personal history of urinary (tract) infections; Z79.82 Long term (current) use of aspirin; Z79.899 Other long term (current) drug therapy
CPT/HCPCS: 36415; 70450; 70551; 71045; 80053; 80307; 81001; 82010; 82550; 82947; 83735; 84439; 84443; 84484; 85025; 85027; 85610; 87086; 87502; 87635; 87637; 92610; 93005; 99285; J0696; J1650; J3475

== ENCOUNTER → 2025-06-20 17:36 | Outpatient (BNV) | payer OTHER, SELFPAY | PROVIDERS: Emergency Provider Student in an Organized Health Care Education/Training Program; PCP Internal Medicine; Visit Provider Radiology Diagnostic Radiology | DX: R41.82 Altered mental status, unspecified (principal) | CPT/HCPCS: 70450; 71045 ==

== ENCOUNTER → 2025-06-20 18:06 | Outpatient (BNV) | payer OTHER, SELFPAY | PROVIDERS: Admitting Provider Nurse Practitioner Family; Emergency Provider Student in an Organized Health Care Education/Training Program; PCP Internal Medicine; Visit Provider Internal Medicine | DX: R41.82 Altered mental status, unspecified (principal) | CPT/HCPCS: 93010 ==

== ENCOUNTER 2025-06-21 01:18 | Outpatient (BNV) | payer OTHER, SELFPAY | END 2025-06-21 18:11 | PROVIDERS: Admitting Provider Nurse Practitioner Family; Emergency Provider Student in an Organized Health Care Education/Training Program; PCP Internal Medicine; Visit Provider Radiology Diagnostic Radiology | DX: F05 Delirium due to known physiological condition (principal) | CPT/HCPCS: 70551 ==

== ENCOUNTER → 2025-06-21 01:18 | Outpatient (BNV) | payer OTHER, SELFPAY | PROVIDERS: Admitting Provider Nurse Practitioner Family; Emergency Provider Student in an Organized Health Care Education/Training Program; PCP Internal Medicine; Visit Provider Nurse Practitioner Family | DX: N39.0 Urinary tract infection, site not specified (principal); F03.90 Unspecified dementia, unspecified severity, without behavioral disturbance, psychotic disturbance, mood disturbance, and anxiety; R44.3 Hallucinations, unspecified | CPT/HCPCS: 99223; 99239; 99499 ==

== ENCOUNTER → 2025-06-21 01:18 | Outpatient (BNV) | payer OTHER, SELFPAY | PROVIDERS: Admitting Provider Nurse Practitioner Family; Emergency Provider Student in an Organized Health Care Education/Training Program; PCP Internal Medicine; Visit Provider Psychiatry & Neurology Neurology | DX: R41.82 Altered mental status, unspecified (principal) | CPT/HCPCS: 99222 ==